=== PATIENT | male | born 1955 | race Caucasian/White ===

== ENCOUNTER 2020-12-03 14:23 | Outpatient (REF) | payer OTHER, SELFPAY ==
[2020-12-03 16:29] LABS: MANUAL DIFF FLAG NO
[2020-12-03 16:31] LABS: Basophils Absolute Auto 0.1 X10*3/uL (0.0-0.2); Basophils Percent Auto 0.5 % (0-2); Eosinophils Absolute Auto 0.3 X10*3/uL (0.0-0.4); Eosinophils Percent Auto 2.7 % (0-4); Hematocrit 42.8 % (42-52); Hemoglobin 14.7 g/dl (14.0-18.0); Imm Gran Abs Auto 0.04 X10*3/uL (0.00-0.03); Imm Gran Pct Auto 0.4 % (0.0-0.4); Lymphocytes Absolute Auto 3.2 X10*3/uL (1.2-4.9); Lymphocytes Percent Auto 32.5 % (20-40); Mean Corpuscular HGB Conc 34.3 g/dl (31.0-36.0); Mean Corpuscular Hemoglobin 32.5 pg (27.0-33.0); Mean Corpuscular Volume 94.7 fL (80-98); Mean Platelet Volume 10.7 fL (9.4-12.4); Monocytes Absolute Auto 0.8 X10*3/uL (0.1-1.2); Monocytes Percent Auto 8.3 % (2-11); Neutrophils Absolute Auto 5.5 X10*3/uL (2.0-8.3); Neutrophils Percent Auto 55.6 % (45-73); Platelet Count 340 X10*3/uL (160-400); Red Blood Count 4.52 X10*6/uL (4.60-5.80); Red Cell Distribution Width 12.5 % (11.0-16.0); White Blood Count 9.9 X10*3/uL (4.8-10.8)
[2020-12-03 16:34] LABS: Glucose Urine UA NEG (NEG); Leukocyte Esterase Urine NEG (NEG); Nitrite Urine NEG (NEG); PH 5.5 (5.0-8.0); Specific Gravity - Urine >= 1.030 (1.005-1.025); Urine Blood NEG (NEG); Urine Ketones NEG (NEG); Urine Protein NEG (NEG-TRACE)
[2020-12-03 16:35] LABS: Appearance Urine CLEAR; Color Urine YELLOW
[2020-12-03 16:55] LABS: Alanine Aminotransferase 24 U/L (0-40); Albumin Level 4.5 g/dL (3.5-5.0); Alkaline Phosphatase 61 U/L (39-117); Anion Gap 14 (12-20); Aspartate Amino Transferase 22 U/L (5-37); Bilirubin Total 0.3 mg/dL (0.0-1.0); Blood Urea Nitrogen 16 mg/dL (9-16); Calcium 8.9 mg/dL (8.4-10.2); Carbon Dioxide 24 mmol/L (22-29); Chloride 103 mmol/L (96-108); Cholesterol 251 mg/dL; Estimated Glomerular Filt Rate > 60; Glucose Fasting 98 mg/dL (60-99); HDL Cholesterol 39 mg/dL; LDL Cholesterol Calculated 164 mg/dl; Potassium 4.6 mmol/l (3.3-5.1); Sodium 136 mmol/L (135-145); Total Protein 7.5 g/dL (6.5-8.0); Triglycerides 243 mg/dL
[2020-12-03 17:11] LABS: TSH reflex Free T4 3.37 mIU/mL (0.32-4.0)
[2020-12-03 18:36] LABS: RBC Urine 0-2 /HPF (0)
[2020-12-03 18:37] LABS: Mucus Urine 1+ /LPF; Squamous Epithelial Cell Urine TRACE /LPF
== END 2020-12-03 14:24 | disposition home or self-care (01) ==
LOC: HO.HMGCLDS 14:23
PROVIDERS: PCP Internal Medicine; Visit Provider Internal Medicine
DX: I10 Essential (primary) hypertension (principal); E78.00 Pure hypercholesterolemia, unspecified; E66.3 Overweight; F17.200 Nicotine dependence, unspecified, uncomplicated
CPT/HCPCS: 36415; 80053; 80061; 81001; 84443; 85025

== ENCOUNTER 2021-04-05 08:03 | Outpatient (REF) | payer OTHER, SELFPAY ==
[2021-04-05 11:19] LABS: MANUAL DIFF FLAG NO
[2021-04-05 11:29] LABS: Basophils Absolute Auto 0.1 X10*3/uL (0.0-0.2); Basophils Percent Auto 0.5 % (0-2); Eosinophils Absolute Auto 0.4 X10*3/uL (0.0-0.4); Eosinophils Percent Auto 3.9 % (0-4); Hematocrit 43.3 % (42-52); Hemoglobin 14.5 g/dl (14.0-18.0); Imm Gran Abs Auto 0.03 X10*3/uL (0.00-0.03); Imm Gran Pct Auto 0.3 % (0.0-0.4); Lymphocytes Absolute Auto 2.8 X10*3/uL (1.2-4.9); Lymphocytes Percent Auto 28.8 % (20-40); Mean Corpuscular HGB Conc 33.5 g/dl (31.0-36.0); Mean Corpuscular Hemoglobin 32.2 pg (27.0-33.0); Mean Platelet Volume 10.9 fL (9.4-12.4); Monocytes Percent Auto 10.5 % (2-11); Neutrophils Absolute Auto 5.4 X10*3/uL (2.0-8.3); Platelet Count 318 X10*3/uL (160-400); Red Blood Count 4.51 X10*6/uL (4.60-5.80); Red Cell Distribution Width 12.9 % (11.0-16.0); White Blood Count 9.7 X10*3/uL (4.8-10.8)
[2021-04-05 11:31] LABS: Glucose Urine UA NEG (NEG); Leukocyte Esterase Urine NEG (NEG); Nitrite Urine NEG (NEG); PH 5.5 (5.0-8.0); Specific Gravity - Urine >= 1.030 (1.005-1.025); Urine Blood NEG (NEG); Urine Ketones NEG (NEG); Urine Protein NEG (NEG-TRACE)
[2021-04-05 11:32] LABS: Color Urine YELLOW
[2021-04-05 11:33] LABS: Appearance Urine TURBID
[2021-04-05 11:55] LABS: Alanine Aminotransferase 22 U/L (0-40); Albumin Level 4.4 g/dL (3.5-5.0); Alkaline Phosphatase 59 U/L (39-117); Anion Gap 14 (12-20); Aspartate Amino Transferase 17 U/L (5-37); Bilirubin Total 0.5 mg/dL (0.0-1.0); Blood Urea Nitrogen 18 mg/dL (9-16); Calcium 8.9 mg/dL (8.4-10.2); Carbon Dioxide 24 mmol/L (22-29); Chloride 107 mmol/L (96-108); Cholesterol 189 mg/dL; Estimated Glomerular Filt Rate > 60; Glucose Fasting 115 mg/dL (60-99); HDL Cholesterol 35 mg/dL; LDL Cholesterol Calculated 113 mg/dl; Potassium 4.6 mmol/L (3.3-5.1); Sodium 140 mmol/L (135-145); Total Protein 6.9 g/dL (6.5-8.0); Triglycerides 205 mg/dL
[2021-04-05 12:02] LABS: TSH reflex Free T4 3.06 uIU/mL (0.32-4.0)
== END 2021-04-05 08:04 | disposition home or self-care (01) ==
LOC: HO.HMGCLDS 08:03
PROVIDERS: PCP Internal Medicine; Visit Provider Internal Medicine
DX: I10 Essential (primary) hypertension (principal); N28.1 Cyst of kidney, acquired; E78.2 Mixed hyperlipidemia; E66.3 Overweight; F17.200 Nicotine dependence, unspecified, uncomplicated
CPT/HCPCS: 36415; 80053; 80061; 81003; 84443; 85025

== ENCOUNTER 2021-08-03 08:50 | Outpatient (REF) | payer OTHER, SELFPAY ==
[2021-08-03 11:09] LABS: MANUAL DIFF FLAG NO
[2021-08-03 11:17] LABS: Basophils Absolute Auto 0.1 X10*3/uL (0.0-0.2); Basophils Percent Auto 0.5 % (0-2); Eosinophils Absolute Auto 0.3 X10*3/uL (0.0-0.4); Eosinophils Percent Auto 3.7 % (0-4); Hemoglobin 14.3 g/dl (14.0-18.0); Imm Gran Abs Auto 0.06 X10*3/uL (0.00-0.03); Imm Gran Pct Auto 0.6 % (0.0-0.4); Lymphocytes Absolute Auto 2.6 X10*3/uL (1.2-4.9); Lymphocytes Percent Auto 27.8 % (20-40); Mean Corpuscular Hemoglobin 32.3 pg (27.0-33.0); Mean Corpuscular Volume 94.8 fL (80-98); Monocytes Percent Auto 10.9 % (2-11); Neutrophils Absolute Auto 5.2 X10*3/uL (2.0-8.3); Neutrophils Percent Auto 56.5 % (45-73); Platelet Count 326 X10*3/uL (160-400); Red Blood Count 4.43 X10*6/uL (4.60-5.80); Red Cell Distribution Width 13.2 % (11.0-16.0); White Blood Count 9.2 X10*3/uL (4.8-10.8)
[2021-08-03 11:26] LABS: Appearance Urine CLEAR; Color Urine YELLOW; Glucose Urine UA NEG (NEG); Leukocyte Esterase Urine NEG (NEG); Nitrite Urine NEG (NEG); Specific Gravity - Urine >= 1.030 (1.005-1.025); UACC Culture Trigger NO; Urine Blood TRACE (NEG); Urine Ketones NEG (NEG); Urine Protein NEG (NEG-TRACE)
[2021-08-03 11:40] LABS: Alanine Aminotransferase 28 U/L (0-40); Albumin Level 4.5 g/dL (3.5-5.0); Alkaline Phosphatase 64 U/L (39-117); Anion Gap 14 (12-20); Aspartate Amino Transferase 19 U/L (5-37); Bilirubin Total 0.5 mg/dL (0.0-1.0); Blood Urea Nitrogen 18 mg/dL (9-16); Calcium 9.3 mg/dL (8.4-10.2); Carbon Dioxide 24 mmol/L (22-29); Chloride 106 mmol/L (96-108); Cholesterol 266 mg/dL; Estimated Glomerular Filt Rate > 60; Glucose Fasting 115 mg/dL (60-99); HDL Cholesterol 43 mg/dL; LDL Cholesterol Calculated 172 mg/dl; Potassium 4.4 mmol/L (3.3-5.1); Sodium 140 mmol/L (135-145); Total Protein 7.4 g/dL (6.5-8.0); Triglycerides 259 mg/dL
[2021-08-03 11:53] LABS: RBC Urine 0-2 /HPF (0); WBC Urine 0-2 /HPF (0-4)
[2021-08-03 11:54] LABS: Calcium Oxalate Crystals Urine 1+ /LPF; Mucus Urine TRACE /LPF
== END 2021-08-03 08:51 | disposition home or self-care (01) ==
LOC: HO.HMGCLDS 08:50
PROVIDERS: PCP Internal Medicine; Visit Provider Internal Medicine
DX: I10 Essential (primary) hypertension (principal); N28.1 Cyst of kidney, acquired; E78.00 Pure hypercholesterolemia, unspecified; F17.200 Nicotine dependence, unspecified, uncomplicated; K58.9 Irritable bowel syndrome, unspecified
CPT/HCPCS: 36415; 80053; 80061; 81001; 85025

== ENCOUNTER 2021-08-31 10:48 | Outpatient (REF) | payer OTHER, SELFPAY ==
--- NOTE | ~2021-08-31 | CT_ITS ---
EXAMINATION: CT ABDOMEN AND PELVIS WITH CONTRAST CLINICAL INFORMATION: Renal cyst. COMPARISON: Prior CT examinations, most recently 07/16/2020; MRI abdomen dated 08/26/2014; renal ultrasound dated 04/21/2011. TECHNIQUE: Multidetector volumetric images were obtained from the superior aspect of the liver through the pubic symphysis following administration 85 mL of Omnipaque 350 intravenous contrast. Sagittal and coronal reformatted images were obtained on the technologist's workstation. Oral contrast: No This CT examination was performed using dose optimization techniques as appropriate, variously including the following: *Automated exposure control *Adjustment of mA and/or kV according to patient size (this includes techniques or standardized protocols for targeted exams where dose is matched to indication/reason for exam; i.e. extremities or head) *Use of iterative reconstruction technique DLP: 625 mGy-cm FINDINGS: LUNG BASES: The visualized lung bases are unremarkable. LIVER, GALLBLADDER, AND BILIARY TREE: The liver is normal in size, shape, and attenuation. Within the hepatic tail (3:31), a 3.1 cm in maximal diameter cyst is redemonstrated. No new focal hepatic lesion or biliary ductal dilatation is present. A small gallstone is seen, without gallbladder wall thickening, or obvious pericholecystic inflammatory changes. PANCREAS: Unremarkable. SPLEEN: Unremarkable. ADRENAL GLANDS: Unremarkable. KIDNEYS AND URETERS: The kidneys are normal in size, shape and attenuation. No urinary calculus or obstructive uropathy is seen bilaterally. At the lower pole of the right kidney (5:66 and 3:38), a 3.8 cm in maximal diameter simple cyst is redemonstrated. At the upper pole of the left kidney (5:71 and 3:25), a 2.5 x 3.1 x 2.7 cm complex cyst is redemonstrated. This shows coarse central septal calcifications, and there is no definite solid component presently appreciated. CT dimensions appear stable from 07/16/2020 (3:24 and 7:62). At the lower pole of the left kidney (3:35), a 1.1 cm simple cyst is redemonstrated. BLADDER: Unremarkable. GASTROINTESTINAL TRACT: A duodenal diverticulum is noted. There is marked diverticulosis, without acute diverticulitis. No bowel obstruction, free intraperitoneal air or abscess is seen. The vermiform appendix appears normal. ABDOMINAL WALL: No significant hernia is appreciated. LYMPH NODES: Normal. VASCULAR: There is mild aortoiliac atherosclerotic calcification. No abdominal aortic aneurysm is seen. PELVIC VISCERA: There is prostatomegaly, with a transverse span of 5.3 cm. The seminal vesicles are unremarkable. OSSEOUS STRUCTURES: There is marked degenerative disc disease at L3-4 through L5-S1. There is multi-level thoracolumbar spondylosis. No acute or aggressive osseous abnormality is seen. CT/CT abdomen pelvis w con IMPRESSION: 1. There is a continued stable appearance of a complex left renal cyst, with coarse central septal calcifications. Dimensions are detailed above. Recommend continued Urology evaluation and management. 2. There is mild cholelithiasis. 3. There is marked diverticulosis, without acute diverticulitis. 4. There is mild prostatomegaly. 5. There is marked degenerative disc disease at L3-4 through L5-S1. No aggressive osseous lesion is seen.
[2021-08-31] MEDS: iohexoL 350 MG/ML 100 ML INFUS..BTL IV (11:14)
== END 2021-08-31 10:49 | disposition home or self-care (01) ==
LOC: HO.CT 10:48
PROVIDERS: Visit Provider Internal Medicine
DX: R10.32 Left lower quadrant pain (principal); R19.8 Other specified symptoms and signs involving the digestive system and abdomen; R31.9 Hematuria, unspecified; N28.1 Cyst of kidney, acquired
CPT/HCPCS: 74177; Q9967

== ENCOUNTER → 2021-09-02 14:51 | Outpatient (BNVA) | payer OTHER, SELFPAY | PROVIDERS: PCP Internal Medicine; Visit Provider Urology | DX: R10.32 Left lower quadrant pain (principal) | CPT/HCPCS: 99212 ==

== ENCOUNTER 2022-08-16 15:50 | Outpatient (REF) | payer MEDICARE, OTHER, SELFPAY ==
--- NOTE | ~2022-08-16 | US_ITS ---
EXAMINATION: US RETROPERITONEAL LIMITED (RENAL ONLY) CLINICAL INFORMATION: Calculus of kidney. COMPARISON: CT abdomen and pelvis 08/31/2021. MRI abdomen 08/26/2014. TECHNIQUE: Real-time imaging of the kidneys. FINDINGS: RIGHT KIDNEY: 11.4 x 5.8 x 5.3 cm (SAG x AP x TRV). The kidney is normal in size, contour, and echogenicity. Renal cortical thickness is normal. No renal calculi or hydronephrosis. There is a lower pole cyst measuring 3.4 x 2.4 x 2.1 cm. This has some peripheral calcification along the wall. This is fairly similar to the prior CT. LEFT KIDNEY: 12.0 x 5.7 x 4.6 cm (SAG x AP x TRV). The kidney is normal in size, contour, and echogenicity. Renal cortical thickness is normal. No hydronephrosis. There is a 2.5 cm cyst at the upper pole with internal calcification. There is an exophytic cyst at the upper pole with internal calcification measuring 2.2 cm. Upper pole 0.5 x 0.4 x 0.7 cm calculus noted. US/US renal BI IMPRESSION: No hydronephrosis. 0.7 cm left upper pole renal calculus. There are bilateral renal cysts that have associated calcification. The upper pole left-sided cystic structure with internal calcification could represent a dilated calyceal diverticulum with internal renal calculus..
== END 2022-08-16 15:51 | disposition home or self-care (01) ==
LOC: HO.US 15:50
PROVIDERS: Visit Provider Urology
DX: N20.0 Calculus of kidney (principal); N28.1 Cyst of kidney, acquired
CPT/HCPCS: 76775

== ENCOUNTER 2022-08-17 11:15 | Outpatient (REF) | payer MEDICARE, SELFPAY ==
[2022-08-17 14:23] LABS: MANUAL DIFF FLAG NO
[2022-08-17 14:30] LABS: Basophils Absolute Auto 0.1 X10*3/uL (0.0-0.2); Basophils Percent Auto 0.7 % (0-2); Eosinophils Absolute Auto 0.3 X10*3/uL (0.0-0.4); Eosinophils Percent Auto 4.1 % (0-4); Hematocrit 40.9 % (42.0-52.0); Imm Gran Abs Auto 0.02 X10*3/uL (0.00-0.03); Imm Gran Pct Auto 0.3 % (0.0-0.4); Lymphocytes Absolute Auto 2.3 X10*3/uL (1.2-4.9); Lymphocytes Percent Auto 32.8 % (20-40); Mean Corpuscular HGB Conc 34.2 g/dl (31.0-36.0); Mean Corpuscular Hemoglobin 32.3 pg (27.0-33.0); Mean Corpuscular Volume 94.2 fL (80.0-98.0); Mean Platelet Volume 10.7 fL (9.4-12.4); Monocytes Absolute Auto 0.8 X10*3/uL (0.1-1.2); Monocytes Percent Auto 10.7 % (2-11); Neutrophils Absolute Auto 3.6 x10*3/uL (2.0-8.3); Neutrophils Percent Auto 51.4 % (45-73); Platelet Count 321 X10*3/uL (160-400); Red Blood Count 4.34 X10*6/uL (4.60-5.80); Red Cell Distribution Width 13.2 % (11.0-16.0)
[2022-08-17 14:38] LABS: Estimated Average Glucose 114 mg/dL; Hemoglobin A1c % 5.6 %
[2022-08-17 14:43] LABS: Alanine Aminotransferase 19 U/L (0-40); Albumin Level 4.1 g/dL (3.5-5.0); Alkaline Phosphatase 55 U/L (39-117); Anion Gap 15 (12-20); Aspartate Amino Transferase 16 U/L (5-37); Bilirubin Total 0.5 mg/dL (0.0-1.0); Blood Urea Nitrogen 13 mg/dL (9-16); Carbon Dioxide 24 mmol/L (22-29); Chloride 106 mmol/L (96-108); Cholesterol 160 mg/dL; Estimated Glomerular Filt Rate > 60; Glucose Fasting 109 mg/dL (60-99); HDL Cholesterol 39 mg/dL; LDL Cholesterol Calculated 106 mg/dl; Potassium 4.8 mmol/L (3.3-5.1); Sodium 140 mmol/L (135-145); Total Protein 6.6 g/dL (6.5-8.0); Triglycerides 76 mg/dL
[2022-08-17 15:08] LABS: Prostate Specific Antigen 2.89 ng/mL (<0.05-4.0); TSH reflex Free T4 2.76 uIU/mL (0.32-4.0); Vitamin D 25-OH Total 30.6 ng/mL (>30)
== END 2022-08-17 11:16 | disposition home or self-care (01) ==
LOC: HO.HMGCLDS 11:15
PROVIDERS: PCP Internal Medicine; Visit Provider Internal Medicine
DX: Z00.00 Encounter for general adult medical examination without abnormal findings (principal); Z12.5 Encounter for screening for malignant neoplasm of prostate; E78.00 Pure hypercholesterolemia, unspecified; E55.9 Vitamin D deficiency, unspecified; N40.0 Benign prostatic hyperplasia without lower urinary tract symptoms; R73.01 Impaired fasting glucose
CPT/HCPCS: 36415; 80053; 80061; 82306; 83036; 84153; 84443; 85025

== ENCOUNTER 2022-08-23 12:11 | Outpatient (REF) | payer MEDICARE, OTHER, SELFPAY ==
[2022-08-23 14:23] LABS: Appearance Urine Clear; Color Urine Yellow; Glucose Urine UA Negative (Negative); Leukocyte Esterase Urine Negative (Negative); Nitrite Urine Negative (Negative); PH 5.5 (5.0-9.0); Specific Gravity - Urine 1.025 (1.005-1.025); Urine Blood Negative (Negative); Urine Ketones Negative (Negative); Urine Protein Negative (Neg-Trace)
== END 2022-08-23 12:12 | disposition home or self-care (01) ==
LOC: HO.HMGCLDS 12:11
PROVIDERS: PCP Internal Medicine; Visit Provider Internal Medicine
DX: Z00.00 Encounter for general adult medical examination without abnormal findings (principal); I10 Essential (primary) hypertension
CPT/HCPCS: 81003

== ENCOUNTER → 2022-08-29 13:29 | Outpatient (BNVA) | payer MEDICARE, SELFPAY | PROVIDERS: PCP Internal Medicine; Visit Provider Urology | DX: N52.9 Male erectile dysfunction, unspecified (principal); N28.1 Cyst of kidney, acquired; M51.36 Other intervertebral disc degeneration, lumbar region | CPT/HCPCS: 99212 ==

== ENCOUNTER → 2022-08-30 09:27 | Outpatient (BNVA) | payer MEDICARE, SELFPAY | PROVIDERS: PCP Internal Medicine; Referring Provider Internal Medicine; Visit Provider Physician Assistant | DX: Z01.818 Encounter for other preprocedural examination (principal); K64.9 Unspecified hemorrhoids; K57.30 Diverticulosis of large intestine without perforation or abscess without bleeding; Z86.010 Personal history of colon polyps | CPT/HCPCS: 99202; 99212 ==

== ENCOUNTER 2022-12-20 11:35 | Outpatient (REF) | payer MEDICARE, SELFPAY ==
--- NOTE | ~2022-12-20 | XR_ITS ---
EXAMINATION: XR ABDOMEN WITH DECUBITUS VIEWS CLINICAL INDICATION: Abdominal pain. COMPARISON: Renal ultrasound dated 08/16/2022; CT abdomen and pelvis dated 08/31/2021. TECHNIQUE: Supine and upright views of the abdomen and pelvis are submitted. FINDINGS: The bowel gas pattern is normal, with no evidence of ileus or obstruction. A previously noted curvilinear calcification related to a complex cyst is redemonstrated at the upper pole the left kidney. There is no acute osseous abnormality. There are multi-level degenerative changes of the thoracolumbar spine. As a mild thoracolumbar dextroscoliosis. XR/XR abdomen w decubitus IMPRESSION: 1. No obstruction, ileus or free intraperitoneal air is seen. 2. A curvilinear calcification related to a previously noted complex cyst at the upper pole of the left kidney is redemonstrated. No urinary calculus is presently appreciated.
[2022-12-20 13:49] LABS: Appearance Urine Clear; Color Urine Yellow; Glucose Urine UA Negative (Negative); Leukocyte Esterase Urine Negative (Negative); Nitrite Urine Negative (Negative); Specific Gravity - Urine 1.025 (1.005-1.025); Urine Blood Negative (Negative); Urine Ketones Negative (Negative); Urine Protein Negative (Neg-Trace)
[2022-12-20 16:34] LABS: MANUAL DIFF FLAG NO
[2022-12-20 16:43] LABS: Basophils Percent Auto 0.4 % (0-2); Eosinophils Absolute Auto 0.2 X10*3/uL (0.0-0.4); Eosinophils Percent Auto 2.1 % (0-4); Hematocrit 41.5 % (42.0-52.0); Hemoglobin 14.3 g/dl (14.0-18.0); Imm Gran Abs Auto 0.03 X10*3/uL (0.00-0.03); Imm Gran Pct Auto 0.4 % (0.0-0.4); Lymphocytes Absolute Auto 2.3 X10*3/uL (1.2-4.9); Lymphocytes Percent Auto 26.6 % (20-40); Mean Corpuscular HGB Conc 34.5 g/dl (31.0-36.0); Mean Corpuscular Volume 92.8 fL (80.0-98.0); Monocytes Absolute Auto 0.9 X10*3/uL (0.1-1.2); Monocytes Percent Auto 10.2 % (2-11); Neutrophils Absolute Auto 5.1 x10*3/uL (2.0-8.3); Neutrophils Percent Auto 60.3 % (45-73); Platelet Count 339 X10*3/uL (160-400); Red Blood Count 4.47 X10*6/uL (4.60-5.80); White Blood Count 8.5 X10*3/uL (4.8-10.8)
[2022-12-20 16:58] LABS: Alanine Aminotransferase 24 U/L (0-40); Albumin Level 4.4 g/dL (3.5-5.0); Alkaline Phosphatase 64 U/L (39-117); Anion Gap 13 (12-20); Aspartate Amino Transferase 17 U/L (5-37); Bilirubin Total 0.4 mg/dL (0.0-1.0); Blood Urea Nitrogen 18 mg/dL (9-16); Calcium 9.8 mg/dL (8.4-10.2); Carbon Dioxide 23 mmol/L (22-29); Chloride 107 mmol/L (96-108); Estimated Glomerular Filt Rate > 60; Glucose Random 101 mg/dL (60-115); Potassium 4.6 mmol/L (3.3-5.1); Sodium 138 mmol/L (135-145); Total Protein 7.1 g/dL (6.5-8.0)
[2022-12-20 17:15] LABS: TSH reflex Free T4 5.45 uIU/mL (0.32-4.0); Vitamin D 25-OH Total 23.9 ng/mL (>30)
[2022-12-20 17:31] LABS: Erythrocyte Sedimentation Rate 13 MM/HR (0-15)
[2022-12-20 18:16] LABS: Free T4 (Free Thyroxine) 0.99 ng/dL (0.71-1.85)
[2022-12-22 14:13] LABS: Anti Nuclear Antibody Screen NEGATIVE (NEGATIVE)
== END 2022-12-20 11:36 | disposition home or self-care (01) ==
LOC: HO.HMGCLDS 11:35
PROVIDERS: PCP Internal Medicine; Visit Provider Internal Medicine
DX: R10.9 Unspecified abdominal pain (principal); R53.83 Other fatigue; E55.9 Vitamin D deficiency, unspecified; R30.0 Dysuria; I10 Essential (primary) hypertension
CPT/HCPCS: 36415; 74021; 80053; 81003; 82306; 84439; 84443; 85025; 85652; 86038; 86039; 86140

== ENCOUNTER → 2023-03-01 10:01 | Outpatient (BNVA) | payer MEDICARE, SELFPAY | PROVIDERS: PCP Internal Medicine; Visit Provider Urology | DX: N52.9 Male erectile dysfunction, unspecified (principal) | CPT/HCPCS: 99212 ==

== ENCOUNTER 2023-04-26 10:13 | Day surgery (SDC) | payer MEDICARE, SELFPAY ==
[2023-04-24 08:43] VITALS: BMI 30.4
--- NOTE | 2023-04-25 08:58 | HO.ANESPROP2 ---
Documented by User: Elly Masters NP 04/25/23 09:00 HPI - Anesthesia Eval Consult details Narrative: 67yo M for Colonoscopy [facility] Active Problems Active Problems: All Active Problems (Updated 12/20/22 @ 11:05 by Tye Mckoy MD) Fatigue (Acute) Abdominal pain (Acute) Diverticulosis of colon (Acute) Hemorrhoids (Acute) History of adenomatous polyp of colon (Acute) Erectile dysfunction (Acute) Impaired fasting glucose (Acute) Colon cancer screening (Acute) Left inguinal pain (Acute) Hematuria (Acute) LLQ abdominal pain (Acute) Complex renal cyst (Acute) Annual physical exam (Acute) Irritable bowel syndrome (IBS) (Acute) Overweight (BMI 25.0-29.9) (Acute) Smoker (Acute) Renal cyst (Acute) Benign prostatic hyperplasia without lower urinary tract symptoms (Acute) Lumbar degenerative disc disease (Acute) Benign essential hypertension (Acute) Mixed hyperlipidemia (Acute) Past Medical History Medical History Benign essential hypertension Benign prostatic hyperplasia without lower urinary tract symptoms Hematuria Irritable bowel syndrome (IBS) LLQ abdominal pain Lumbar degenerative disc disease Mixed hyperlipidemia Overweight (BMI 25.0-29.9) Renal cyst Smoker Family History Family History Father Myocardial infarction CVD (cardiovascular disease) Mother Diabetes Head injury Sister Stroke Maternal Grandmother Diabetes Paternal Grandfather Myocardial infarction Paternal Uncle Myocardial infarction Brother No problems noted. Sister No problems noted. Surgical History Surgical History History of colonoscopy with polypectomy History of hemorrhoidectomy History of hernia repair History of lumbar surgery Social History Social History Housing: Apartment Alcohol intake: current Alcohol intake frequency: holidays/special occasions only Patient Tobacco Use Status: Current everyday Tobacco user Cigarettes Per Day: 10 Second Hand Smoke Exposure: Yes Advance Directives: No Advance Directives Information Provided: Yes service: No Current occupational status: retired Cognitive needs: No Hearing needs: No Vision needs: Yes (reading glasses) Meds Allergies Allergy/AdvReac Type Severity Reaction Status Date / Time amoxicillin Allergy Intermediate stomach Verified 04/26/23 10:51 upset, nausea, hives Home Medications Medication Instructions Recorded Confirmed Last Taken Type ascorbate calcium (vitamin C) 500 500 mg PO DAILY 08/29/22 04/26/23 Unknown History mg tablet vitamin B complex (B 1 tab PO DAILY 08/29/22 04/26/23 Unknown History Complex-Vitamin B12 tablet) Exam Exam Date and Time: April 25, 2023 0858 Height,Weight and Vital Signs: Height 5 ft 8 in Weight 90.718 kg Pertinent Lab Results Pertinent Lab Results: Laboratory Tests 12/20/22 12/20/22 11:44 11:44 WBC 8.5 Hgb 14.3 Hct 41.5 L Plt Count 339 Sodium 138 Potassium 4.6 Chloride 107 Carbon Dioxide 23 BUN 18 H Creatinine 0.84 Assessment and Plan Assessment Anesthesia Assessment: Chart Reviewed Documented by User: Ninoska Gomez MD 04/26/23 10:56 PMF Past Medical History Medical History Benign essential hypertension Benign prostatic hyperplasia without lower urinary tract symptoms Hematuria Irritable bowel syndrome (IBS) LLQ abdominal pain Lumbar degenerative disc disease Mixed hyperlipidemia Overweight (BMI 25.0-29.9) Renal cyst Smoker Family History Family History Father Myocardial infarction CVD (cardiovascular disease) Mother Diabetes Head injury Sister Stroke Maternal Grandmother Diabetes Paternal Grandfather Myocardial infarction Paternal Uncle Myocardial infarction Brother No problems noted. Sister No problems noted. Surgical History Surgical History History of colonoscopy with polypectomy History of hemorrhoidectomy History of hernia repair History of lumbar surgery History of Problems with Anesthesia: No Social History Social History Housing: Apartment Alcohol intake: current Alcohol intake frequency: holidays/special occasions only Patient Tobacco Use Status: Current everyday Tobacco user Cigarettes Per Day: 10 Second Hand Smoke Exposure: Yes Advance Directives: No Advance Directives Information Provided: Yes service: No Current occupational status: retired Cognitive needs: No Hearing needs: No Vision needs: Yes (reading glasses) Meds Allergies Allergy/AdvReac Type Severity Reaction Status Date / Time amoxicillin Allergy Intermediate stomach Verified 04/26/23 10:51 upset, nausea, hives Home Medications Medication Instructions Recorded Confirmed Last Taken Type ascorbate calcium (vitamin C) 500 500 mg PO DAILY 08/29/22 04/26/23 Unknown History mg tablet vitamin B complex (B 1 tab PO DAILY 08/29/22 04/26/23 Unknown History Complex-Vitamin B12 tablet) Exam Airway Mallampati Class: II TM Dist: >3cm Neck ROM: Full Loose/Missing/Broken Teeth: No Heart: RRR Lungs: CTA Assessment and Plan Assessment Anesthesia Assessment: Anesthesia Plan Discussed Final Anesthetic Review History of Problems with Anesthesia: No NPO: Yes ASA Class: II Final Preanesthetic Review: Meds/Allgs Chart Reviewed, Consent Obtained/Reviewed and Anes Risks/Benef Reviewed Patient Risk: Low Procedure Risk: Low Anesthetic Plan Anesthetic Plan: MAC: Disposition: Standard PACU
[2023-04-26 10:52] VITALS: BP 147/89; PULSE 69; RESP 16; TEMP 36.6; O2SAT 98
[2023-04-26 10:54] VITALS: BMI 27.8
[2023-04-26] MEDS: Lactated Ringers 1,000 ML 100 ML IVCONT (11:16)
--- NOTE | 2023-04-26 12:03 | W.PM.OPN ---
Operative Note Operative Note Date of Service: 04/26/23 Narrative: Operative Information Procedure Description: Colonoscopy Indication: screening Anesthesia: MAC COLONOSCOPY Instrument: Olympus variable stiffness pediatric scope 190L Colonoscopy Monitoring: Vital signs and clinical assessment, continuous EKG monitoring, Pulse oximetry, Carbon Dioxide monitoring and blood pressure monitoring were done throughout the procedure. Colon withdrawal time was 10 minutes. Procedure: The patient was placed in the left lateral decubitis position and pre-procedure medications were administered. After a digital rectal examination of the ano-rectum, the video colonoscope was inserted into the rectum and advanced through the colon to the cecum/TI. The colonoscope was slowly withdrawn in a retrograde panoramic fashion and the colon mucosa was carefully examined including a retroflexed view of the rectum. Findings and interventions are described below. Procedure Difficulty: easy Findings: Terminal Ileum-normal Cecum: 3-5 mm sessile polyp removed with cold forceps Ascending Colon: mild diverticulosis, 6-8 mm sessile polyp removed with cold snare Transverse Colon -normal Descending Colon:normal Sigmoid Colon: scattered diverticulosis Rectum: Retroflexion with medium sized internal hemorrhoids, grade I Anorectum - normal Colon preparation: [place] Bowel Preparation Scale Right colon; 2 Transverse colon: 3 Left colon; 3 (0 = Unprepared colon segment with mucosa not seen due to solid stool that cannot be cleared. 1 = Portion of mucosa of the colon segment seen, but other areas of the colon segment not well seen due to staining, residual stool and/or opaque liquid. 2 = Minor amount of residual staining, small fragments of stool and/or opaque liquid, but mucosa of colon segment seen well. 3 = Entire mucosa of colon segment seen well with no residual staining, small fragments of stool or opaque liquid) Impression and Post Procedure Diagnosis: polyps internal hemorrhoids diverticular disease Plan: High fiber diet leaflet Avoid straining at stool, epsom salts and sitz bath, anusol supps or cream Repeat Colonoscopy in 5-6 years or earlier if clinically indicated Above findings were reviewed with the patient and relevant handouts were provided if indicated.
[2023-04-26 12:05] VITALS: BP 82/58; PULSE 73; RESP 16; TEMP 37.3; O2SAT 96
[2023-04-26 12:27] VITALS: BP 117/69; PULSE 71; RESP 18; TEMP 36.1; O2SAT 95
== END 2023-04-26 12:50 | disposition home or self-care (01) ==
PROVIDERS: PCP Internal Medicine; Visit Provider Internal Medicine Gastroenterology
PROC: 0DJD8ZZ Inspection of Lower Intestinal Tract, Via Natural or Artificial Opening Endoscopic (ICD-10-PCS; CPT 45378; principal; 2023-04-26 13:20)
DX: Z12.11 Encounter for screening for malignant neoplasm of colon (principal); Z86.010 Personal history of colon polyps; D12.2 Benign neoplasm of ascending colon; K63.5 Polyp of colon; K57.30 Diverticulosis of large intestine without perforation or abscess without bleeding; K64.0 First degree hemorrhoids; K58.9 Irritable bowel syndrome, unspecified; I10 Essential (primary) hypertension; E78.2 Mixed hyperlipidemia; N40.0 Benign prostatic hyperplasia without lower urinary tract symptoms; E78.5 Hyperlipidemia, unspecified; N28.1 Cyst of kidney, acquired; E66.3 Overweight; Z68.28 Body mass index [BMI] 28.0-28.9, adult; Z79.899 Other long term (current) drug therapy; Z88.1 Allergy status to other antibiotic agents; F17.210 Nicotine dependence, cigarettes, uncomplicated
CPT/HCPCS: 45385; 45380; 88305; J2250

== ENCOUNTER 2023-06-06 11:22 | Outpatient (AMB) | payer MEDICARE, SELFPAY ==
--- NOTE | 2023-06-06 11:39 | MHC.OFFVIS ---
Intake Vital Signs 06/06/23 11:40 Height 5 ft 8 in Weight 185 lb BMI 28.1 BP 126/74 Blood Pressure Location Lt brachial Position Sitting Pulse 74 Intake Visit Reasons: S/p colon- Vaughan Intake Note: Patient follow up for Colonoscopy results. Patient denies any GI issues. 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 Bowels are normal good rare constipation Appetite is good no acid reflux No nausea, vomiting, hematemesis, hematochezia fever or chills PFSH Medical History Benign essential hypertension Benign prostatic hyperplasia without lower urinary tract symptoms Diverticulosis of colon Hematuria Irritable bowel syndrome (IBS) LLQ abdominal pain Lumbar degenerative disc disease Mixed hyperlipidemia Obesity (BMI 30-39.9) Overweight (BMI 25.0-29.9) Renal cyst Smoker Surgical History History of colonoscopy with polypectomy History of hemorrhoidectomy History of hernia repair History of lumbar surgery Family History Father Myocardial infarction CVD (cardiovascular disease) Mother Diabetes Head injury Sister Stroke Maternal Grandmother Diabetes Paternal Grandfather Myocardial infarction Paternal Uncle Myocardial infarction Brother No problems noted. Sister No problems noted. Social History Housing: Apartment Alcohol intake: current Alcohol intake frequency: holidays/special occasions only Patient Tobacco Use Status: Current everyday Tobacco user Tobacco use type: Cigarette Cigarette Packs Per Day: 0.5 Cigarettes Per Day: 10.0 Years Smoked: 40 Second Hand Smoke Exposure: Yes service: No Current occupational status: retired Cognitive needs: No Hearing needs: No Vision needs: Yes (reading glasses) Review of Systems Const All systems reviewed & are unremarkable except as noted in HPI and below Physical Exam Vital Signs: Last Vital Signs Pulse 74 06/06/23 11:40 BP 126/74 06/06/23 11:40 BMI result Body Mass Index 28.1 Const General: cooperative, healthy appearing and comfortable Orientation/consciousness: patient oriented x3 Limitations: no limitations Neuro General: patient oriented x3 Psych Appearance: grossly normal Mental Status: mental status grossly normal Speech and movement: Normal speech and movement present Affect: normal affect Attitude: cooperative Thought process: Normal thought process present Thought content: Normal thought content present Insight: Good insight present (Psych) Judgement: Good judgement present (Psych) Results Reviewed Results Reviewed: Impression and Post Procedure Diagnosis: polyps internal hemorrhoids diverticular disease Plan: High fiber diet leaflet Avoid straining at stool, epsom salts and sitz bath, anusol supps or cream Repeat Colonoscopy in 5-6 years or earlier if clinically indicated Name:?Adele,Robert Age/Sex: 67/M Attending: Manuel Vaughan MD : 1955 Submitted by: Manuel Vaughan MD Copies to: Tye Mckoy MD MR #: [id number] ? Status: [facility] Collected: 04/26/23 Location: [facility] Received: 04/26/23 Diagnosis A.? Cecum, polypectomy:? Colonic mucosa with mild surface hyperplastic changes. B.? Colon, ascending, polypectomy:? Sessile serrated lesion/polyp; negative for cytologic dysplasia. Clinical History Pre-Op Dx:? Colon cancer screening, Hx/o polyps Post-Op Dx: Diverticulosis, colon polyps, hemorrhoids Assessment & Plan Assessment & Plan (1) Sessile colonic polyp: Code(s): K63.5 - Polyp of colon (2) Diverticulosis of colon: Comment: Discussed diverticulosis/diverticulitis ER protocol Maintain high-fiber diet Code(s): K57.30 - Diverticulosis of large intestine without perforation or abscess without bleeding (3) Hemorrhoids: Comment: Avoid straining, maintain high-fiber diet Code(s): K64.9 - Unspecified hemorrhoids Patient Instructions: Repeat asymptomatic colonoscopy 5 years adenomas or serrated polyps are?benign (noncancerous) growths, but may be precursor lesions to colorectal cancer so it is good that they are removed. Discussed diverticulosis/diverticulitis ER protocol Maintain high-fiber diet Coding Level of Care Code Est Pt Level 3 (03439) Diagnoses Sessile colonic polyp K63.5 Diverticulosis of colon K57.30 Hemorrhoids K64.9 Time Spent (min) 25
[2023-06-06 11:40] VITALS: BP 126/74; PULSE 74; BMI 28.1
== END 2023-06-06 12:29 | disposition home or self-care (01) ==
PROVIDERS: Visit Provider Physician Assistant
DX: K63.5 Polyp of colon (principal); K57.30 Diverticulosis of large intestine without perforation or abscess without bleeding; K64.9 Unspecified hemorrhoids
CPT/HCPCS: 99213

== ENCOUNTER → 2023-06-06 11:22 | Outpatient (BNVA) | payer MEDICARE, OTHER, SELFPAY | PROVIDERS: Visit Provider Physician Assistant | DX: K57.30 Diverticulosis of large intestine without perforation or abscess without bleeding (principal); K63.5 Polyp of colon; K64.8 Other hemorrhoids; K58.9 Irritable bowel syndrome, unspecified; R10.32 Left lower quadrant pain | CPT/HCPCS: 99212 ==

== ENCOUNTER 2023-07-04 08:04 | Outpatient (REF) | payer MEDICARE, OTHER, SELFPAY | END 2023-07-04 08:05 | disposition home or self-care (01) | LOC: HO.MRI 08:04 | PROVIDERS: PCP Internal Medicine; Visit Provider Internal Medicine | DX: Z13.89 Encounter for screening for other disorder (principal) ==

== ENCOUNTER 2023-08-31 09:58 | Outpatient (AMB) | payer MEDICARE, OTHER, SELFPAY ==
--- NOTE | 2023-08-31 09:59 | MHC.OFFVIS ---
Intake Intake Visit Reasons: 6M Follow Up (BPH/Erectile Dys) Allergies amoxicillin Allergy (Intermediate, Verified 06/06/23 11:39) stomach upset, nausea, hives HPI HPI Comments History of Present Illness Details Dale is a very pleasant male. He is a patient of Dr. Mckoy. He is seen for the following urologic conditions - complex renal cyst - inguinal pain - erectile dysfunction Telemedicine Evaluation 15 min Consultation DoxmBlox [place] Video attempted Low-dose daily tadalafil Good effect - bladder and erections Erectile dysfunction Progressive Trouble maintaining erection Positive effect with daily tadalafil Complex renal cyst Followed over number of years Imaging - 09/15 CT scan 3.6 cm renal cyst right side, 2.5 cm complex cyst left side with calcification basically unchanged compared to prior imaging MRI and ultrasound - 08/17 renal ultrasound right-sided 3.6 cm cyst, left side complex cyst with calcification Lower urinary tract symptoms Mild in occasional nocturia Does not reach level of bother PSA - 04/14 3.0, 08/17 2.9 Left inguinal disruption Prior radiating pain left inguinal area up flank On exam has marked tenderness at lateral aspect of left inguinal canal and medial aspect of right inguinal canal Previously has responded to anti-inflammatories Pain predominantly from left side Known degenerative disc disease Prior Celebrex [facility] Medical History (Updated 08/31/23 @ 10:32 by Rome Leong MD) Obesity (BMI 30-39.9) Diverticulosis of colon Hematuria LLQ abdominal pain Irritable bowel syndrome (IBS) Overweight (BMI 25.0-29.9) Smoker Renal cyst Benign prostatic hyperplasia without lower urinary tract symptoms Lumbar degenerative disc disease Benign essential hypertension Mixed hyperlipidemia Surgical History History of colonoscopy with polypectomy History of hemorrhoidectomy History of lumbar surgery History of hernia repair Family History Father Myocardial infarction CVD (cardiovascular disease) Mother Diabetes Head injury Sister Stroke Maternal Grandmother Diabetes Paternal Grandfather Myocardial infarction Paternal Uncle Myocardial infarction Brother No problems noted. Sister No problems noted. Social History Housing: Apartment Alcohol intake: current Alcohol intake frequency: holidays/special occasions only Patient Tobacco Use Status: Current everyday Tobacco user Tobacco use type: Cigarette Cigarette Packs Per Day: 0.5 Cigarettes Per Day: 10.0 Years Smoked: 40 Second Hand Smoke Exposure: Yes service: No Current occupational status: retired Cognitive needs: No Hearing needs: No Vision needs: Yes (reading glasses) Assessment & Plan Assessment & Plan (1) Erectile dysfunction: Code(s): N52.9 - Male erectile dysfunction, unspecified Qualifiers: Erectile dysfunction type: vasculogenic Vasculogenic erectile dysfunction type: due to arterial insufficiency Qualified Code(s): N52.01 - Erectile dysfunction due to arterial insufficiency (2) Benign prostatic hyperplasia without lower urinary tract symptoms: Code(s): N40.0 - Benign prostatic hyperplasia without lower urinary tract symptoms Plan Six month follow-up PSA Orders: Orders Prostate Specific Antigen 6 Months N40.0 - Benign prostatic hyperplasia without lower urinary tract symptoms Medications: Refilled tadalafil 5 mg PO DAILY 90 days 90 tabs 1RF sexual activity N52.01 - Erectile dysfunction due to arterial insufficiency, N52.9 - Male erectile dysfunction, unspecified Patient Instructions: Imaging studies, laboratory and physical exam results were discussed and reviewed in detail. No major barriers to patient understanding were identified. An opportunity to ask questions regarding the treatment plan was provided. All questions were answered. The patient expressed understanding and agreement with the above treatment plan. The patient is aware they should contact our office by phone for worsening of their current condition or the appearance of new urologic symptoms. Compliance is encouraged with any medications and followup testing that is ordered. It is a privilege to participate in the urologic care of your patient. If you have any questions or concerns regarding treatment for the above conditions, or other urologic issues, please do not hesitate to contact me. The office telephone contact is [phone]. This note is constructed using voice recognition software. While every effort has been made to ensure accuracy treasury consultant errors may have been included. Yours sincerely, Dr Rome Leong MD, [facility] - Urology Providers of Expert, Compassionate Care for the Genitourinary System Telehealth Telehealth Location of provider rendering services: practice address Location of patient: address on file Patient Identification confirmed using: Name, : Yes Telehealth method: video Patient verbally consented to treatment: Yes Patient verbally consented to billing insurance company: Yes Patient informed of any privacy concerns related to visit: Yes Coding Level of Care Code Tele Est Pt Level 3 (41829) Diagnoses Erectile dysfunction due to arterial insufficiency N52.01 Erectile dysfunction type: vasculogenic Vasculogenic erectile dysfunction type: due to arterial insufficiency Benign prostatic hyperplasia without lower urinary tract symptoms N40.0
== END 2023-08-31 10:33 | disposition home or self-care (01) ==
LOC: HO.HUSH 09:58
PROVIDERS: PCP Internal Medicine; Visit Provider Urology
DX: N52.01 Erectile dysfunction due to arterial insufficiency (principal); N40.0 Benign prostatic hyperplasia without lower urinary tract symptoms
CPT/HCPCS: 99213

== ENCOUNTER → 2023-08-31 09:58 | Outpatient (BNVA) | payer MEDICARE, OTHER, SELFPAY | PROVIDERS: PCP Internal Medicine; Visit Provider Urology ==

== ENCOUNTER 2024-02-21 14:03 | Outpatient (REF) | payer MEDICARE, OTHER, SELFPAY ==
[2024-02-21 16:10] LABS: Prostate Specific Antigen 2.95 ng/mL (<0.05-4.0)
== END 2024-02-21 14:04 | disposition home or self-care (01) ==
LOC: HO.LAB 14:03
PROVIDERS: PCP Internal Medicine; Visit Provider Urology
DX: N40.0 Benign prostatic hyperplasia without lower urinary tract symptoms (principal); Z12.5 Encounter for screening for malignant neoplasm of prostate
CPT/HCPCS: 36415; 84153

== ENCOUNTER 2024-02-28 10:10 | Outpatient (AMB) | payer MEDICARE, OTHER, SELFPAY ==
--- NOTE | 2024-02-28 10:25 | A.OFFVIS_ITS ---
Intake Intake Visit Reasons: 6m/PSA(set)confirmed Intake Note: Patient presents today for a follow up on: PSA/PVR Meds- Tadalafil Allergies to Antibiotic- Amoxicillin Blood Thinner- None Post Void Residual: 67ml Carpenter Prototype Required: No Accompanied by: Self / Same As Patient Allergies amoxicillin Allergy (Intermediate, Verified 02/28/24 10:45) stomach upset, nausea, hives HPI HPI Comments History of Present Illness Details Dale is a very pleasant male. He is a patient of Dr. Mckoy. He is seen for the following urologic conditions - complex renal cyst - inguinal pain - erectile dysfunction Low-dose daily tadalafil Good effect - bladder and erections Main issue is left flank pain which is secondary to prior surgery Erectile dysfunction Progressive Trouble maintaining erection Positive effect with daily tadalafil Complex renal cyst Followed over number of years Imaging - 09/15 CT scan 3.6 cm renal cyst right side, 2.5 cm complex cyst left side with calcification basically unchanged compared to prior imaging MRI and ultrasound - 08/17 renal ultrasound right-sided 3.6 cm cyst, left side complex cyst with calcification Lower urinary tract symptoms Mild in occasional nocturia Does not reach level of bother PSA - 04/14 3.0, 08/17 2.9 Left inguinal disruption Prior radiating pain left inguinal area up flank On exam has marked tenderness at lateral aspect of left inguinal canal and medial aspect of right inguinal canal Previously has responded to anti-inflammatories Pain predominantly from left side Known degenerative disc disease Prior Celebrex [facility] Medical History Obesity (BMI 30-39.9) Diverticulosis of colon Hematuria LLQ abdominal pain Irritable bowel syndrome (IBS) Overweight (BMI 25.0-29.9) Smoker Renal cyst Benign prostatic hyperplasia without lower urinary tract symptoms Lumbar degenerative disc disease Benign essential hypertension Mixed hyperlipidemia Surgical History History of colonoscopy with polypectomy History of hemorrhoidectomy History of lumbar surgery History of hernia repair Family History Father Myocardial infarction CVD (cardiovascular disease) Mother Diabetes Head injury Sister Stroke Maternal Grandmother Diabetes Paternal Grandfather Myocardial infarction Paternal Uncle Myocardial infarction Brother No problems noted. Sister No problems noted. Social History Housing: Apartment Alcohol intake: current Alcohol intake frequency: holidays/special occasions only Patient Tobacco Use Status: Current everyday Tobacco user Tobacco use type: Cigarette Cigarette Packs Per Day: 0.5 Cigarettes Per Day: 10.0 Years Smoked: 40 Second Hand Smoke Exposure: Yes service: No Current occupational status: retired Cognitive needs: No Hearing needs: No Vision needs: Yes (reading glasses) Review of Systems Const Denies chills and Denies fever(s) Card Reports no additional complaints and Denies syncope Resp Denies cough GI Denies abdominal pain and Denies heartburn Reports as per HPI and Denies change in libido Neuro Denies syncope Psych Denies change in libido Endo Denies change in libido Physical Exam Const General: cooperative, healthy appearing, comfortable and no acute distress Orientation/consciousness: patient oriented x3 HEENT Face and sinus: Yes normal facial exam Mouth: moist mucous membranes Neck Neck: Yes normal visual inspection, Yes full ROM and Yes trachea midline Chest Chest palpation & inspection: normal inspection of the chest Resp Effort & Inspection: normal respiratory effort, able to speak in complete sentences and no respiratory distress GI Inspection: Yes normal to inspection Back/Spine/Pelvis Cervical Spine: normal cervical lordosis Thoracic/Lumbar Spine: thoracic and lumbar spine normal to inspection Skin General skin exam: no rashes or lesions noted Neuro General: patient oriented x3, gait normal, tone normal and moves all extremities Extrem General: Yes normal to inspection and Yes capillary refill normal Office Procedures Post Void Residual Post Residual Void Post Void Residual (PVR): 67 [id number] Void Residual by ultrasound Assessment & Plan Assessment & Plan (1) Benign prostatic hyperplasia without lower urinary tract symptoms: Code(s): N40.0 - Benign prostatic hyperplasia without lower urinary tract symptoms (2) Erectile dysfunction: Code(s): N52.9 - Male erectile dysfunction, unspecified Qualifiers: Erectile dysfunction type: vasculogenic Vasculogenic erectile dysfunction type: due to arterial insufficiency Qualified Code(s): N52.01 - Erectile dysfunction due to arterial insufficiency Plan Six-month follow-up Orders: Orders AMB Post Void Residual by ultrasound Today R33.9 - Retention of urine, unspecified Medications: Refilled tadalafil 5 mg PO DAILY 90 days 90 tabs 1RF sexual activity N52.01 - Erectile dysfunction due to arterial insufficiency, N52.9 - Male erectile dysfunction, unspecified Patient Instructions: Imaging studies, laboratory and physical exam results were discussed and reviewed in detail. No major barriers to patient understanding were identified. An opportunity to ask questions regarding the treatment plan was provided. All questions were answered. The patient expressed understanding and agreement with the above treatment plan. The patient is aware they should contact our office by phone for worsening of their current condition or the appearance of new urologic symptoms. Compliance is encouraged with any medications and followup testing that is ordered. It is a privilege to participate in the urologic care of your patient. If you have any questions or concerns regarding treatment for the above conditions, or other urologic issues, please do not hesitate to contact me. The office telephone contact is [phone]. This note is constructed using voice recognition software. While every effort has been made to ensure accuracy tram driver errors may have been included. Yours sincerely, Dr Rome Leong MD, [facility] - Urology Providers of Expert, Compassionate Care for the Genitourinary System Coding Level of Care Code Est Pt Level 3 (26182) Diagnoses Benign prostatic hyperplasia without lower urinary tract symptoms N40.0 Erectile dysfunction due to arterial insufficiency N52.01 Erectile dysfunction type: vasculogenic Vasculogenic erectile dysfunction type: due to arterial insufficiency CPT Codes Post Residual Void - PVR CPT Code: 53383-Ptqz Void Residual by ultrasound ([id number])
== END 2024-02-28 11:07 | disposition home or self-care (01) ==
PROVIDERS: PCP Internal Medicine; Visit Provider Urology
DX: N40.0 Benign prostatic hyperplasia without lower urinary tract symptoms (principal); N52.01 Erectile dysfunction due to arterial insufficiency
CPT/HCPCS: 99213

== ENCOUNTER → 2024-02-28 10:10 | Outpatient (BNVA) | payer MEDICARE, OTHER, SELFPAY | PROVIDERS: PCP Internal Medicine; Visit Provider Urology | DX: N40.0 Benign prostatic hyperplasia without lower urinary tract symptoms (principal); N52.01 Erectile dysfunction due to arterial insufficiency | CPT/HCPCS: 51798; 99212 ==

== ENCOUNTER 2024-03-21 14:46 | Outpatient (REF) | payer MEDICARE, OTHER, SELFPAY ==
[2024-03-21 16:17] LABS: MANUAL DIFF FLAG NO
[2024-03-21 16:21] LABS: Basophils Percent Auto 0.4 % (0-2); Eosinophils Absolute Auto 0.1 X10*3/uL (0.0-0.4); Eosinophils Percent Auto 1.1 % (0-4); Hematocrit 41.1 % (42.0-52.0); Hemoglobin 14.1 g/dl (14.0-18.0); Imm Gran Abs Auto 0.04 X10*3/uL (0.00-0.03); Imm Gran Pct Auto 0.4 % (0.0-0.4); Lymphocytes Absolute Auto 2.6 X10*3/uL (1.2-4.9); Lymphocytes Percent Auto 26.4 % (20-40); Mean Corpuscular HGB Conc 34.3 g/dl (31.0-36.0); Mean Corpuscular Hemoglobin 31.9 pg (27.0-33.0); Mean Platelet Volume 10.3 fL (9.4-12.4); Monocytes Absolute Auto 0.9 X10*3/uL (0.1-1.2); Neutrophils Absolute Auto 6.1 x10*3/uL (2.0-8.3); Neutrophils Percent Auto 62.7 % (45-73); Platelet Count 329 X10*3/uL (160-400); Red Blood Count 4.42 X10*6/uL (4.60-5.80); Red Cell Distribution Width 12.8 % (11.0-16.0); White Blood Count 9.7 X10*3/uL (4.8-10.8)
[2024-03-21 16:24] LABS: Appearance Urine Clear; Color Urine Dark Yellow; Glucose Urine UA Negative (Negative); Leukocyte Esterase Urine Trace (Negative); Nitrite Urine Negative (Negative); Specific Gravity - Urine >= 1.030 (1.005-1.025); UMIC TRIGGER UACC YES; Urine Blood Negative (Negative); Urine Ketones Negative (Negative); Urine Protein Trace mg/dL (Neg-Trace)
[2024-03-21 16:29] LABS: Bacteria Urine None Seen (None Seen); Hyaline Casts Urine 0-2 /LPF (0-2); RBC Urine 0-2 /HPF (0-2); Squamous Epithelial Cell Urine 0-2 /HPF (0-2); WBC Urine 0-5 /HPF (0-5)
[2024-03-21 16:56] LABS: Alanine Aminotransferase 14 U/L (0-40); Albumin Level 4.3 g/dL (3.5-5.0); Alkaline Phosphatase 58 U/L (39-117); Anion Gap 13 (12-20); Aspartate Amino Transferase 14 U/L (5-37); Bilirubin Total 0.4 mg/dL (0.0-1.0); Blood Urea Nitrogen 19 mg/dL (9-16); Carbon Dioxide 21 mmol/L (22-29); Chloride 110 mmol/L (96-108); Cholesterol 199 mg/dL (<200); Estimated Glomerular Filt Rate > 60; Glucose Fasting 108 mg/dL (60-99); HDL Cholesterol 45 mg/dL (>40); LDL Cholesterol Calculated 136 mg/dL (<100); Sodium 140 mmol/L (135-145); Total Protein 7.3 g/dL (6.5-8.0); Triglycerides 92 mg/dL (<150)
[2024-03-21 17:10] LABS: Vitamin D 25-OH Total 26.3 ng/mL (>30)
[2024-03-21 17:50] LABS: Free T4 (Free Thyroxine) 0.79 ng/dL (0.71-1.85)
== END 2024-03-21 14:47 | disposition home or self-care (01) ==
LOC: HO.HMGCLDS 14:46
PROVIDERS: PCP Internal Medicine; Visit Provider Internal Medicine
DX: Z00.00 Encounter for general adult medical examination without abnormal findings (principal); E55.9 Vitamin D deficiency, unspecified; E78.00 Pure hypercholesterolemia, unspecified; I10 Essential (primary) hypertension; R30.0 Dysuria
CPT/HCPCS: 36415; 80053; 80061; 81001; 82306; 84439; 84443; 85025

== ENCOUNTER 2024-03-26 16:23 | Outpatient (AMB) | payer MEDICARE, OTHER, SELFPAY ==
--- NOTE | 2024-03-26 16:26 | MHC.PC.OV ---
Vital Signs 03/26/24 16:27 Height 5 ft 8 in Weight 195 lb BMI 29.6 BP 138/62 Blood Pressure Location Lt brachial Position Sitting Pulse 84 Pulse Source Pulse Oximeter Pulse Oximetry (%) 96 Oxygen Delivery Method Room Air Intake Visit Reasons: PE Intake Note: Patient is here today for a physical. 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 Allergies amoxicillin Allergy (Intermediate, Verified 03/26/24 17:14) stomach upset, nausea, hives Medication List - Last Reconciled 03/26/24 by Tye Mckoy MD ascorbate calcium (vitamin C) 500 mg PO DAILY celecoxib 100 mg PO BID 30 days lisinopril 5 mg PO DAILY pravastatin 40 mg PO DAILY 90 days pregabalin 50 mg PO TID 30 days tadalafil 5 mg PO DAILY 90 days vitamin B complex (B Complex-Vitamin B12 tablet) 1 tab PO DAILY Tobacco use date assessed: 03/26/24 Fall risk assessment: No Falls in past year Last assessed Fall Risk: 03/26/24 Dental Screening Dental Screen Date: 03/26/24 Did you have a dental visit in the last 12 months?: No Did you have a dental problem in the last 6 months where you did not have access to dental care?: No HPI PE HPI Details Patient comes in today for his annual physical examination - was last seen back in April 2023 States that he continues to experience increased pain over his lower back and recurrent pain over his left lower abdomen, which he states have been going on for years Notes that he is also now experiencing some pain over his left thigh area, more over the posterolateral aspect He was sent for a repeat MRI of his lumbar spine when he was seen last year but he did not get it done as he had some issues with his insurance at the time States that he spent the better part of last winter working on his boat and was going up and down the ladders on his boat and recalls that he was experiencing increased pain over his lower back almost all winter and would now like to get back to getting an MRI done to find out the reason for his symptoms and what we can do about them He denies any headaches or dizziness Denies any chest pains, no SOB No nausea/vomiting and no change in bowel habits noted He denies any acute urinary symptoms Had his follow up labs done a few days ago - to discuss his results Had his screening colonoscopy last done a year ago and he was advised to get a repeat colonoscopy in 5 to 6 years [facility] Medical History (Updated 03/27/24 @ 03:57 by Tye Mckoy MD) Obesity (BMI 30-39.9) Diverticulosis of colon Hematuria Irritable bowel syndrome (IBS) Overweight (BMI 25.0-29.9) Smoker Renal cyst Benign prostatic hyperplasia without lower urinary tract symptoms Lumbar degenerative disc disease Benign essential hypertension Mixed hyperlipidemia Surgical History History of colonoscopy with polypectomy History of hemorrhoidectomy History of lumbar surgery History of hernia repair Family History Father Myocardial infarction CVD (cardiovascular disease) Mother Diabetes Head injury Sister Stroke Maternal Grandmother Diabetes Paternal Grandfather Myocardial infarction Paternal Uncle Myocardial infarction Brother No problems noted. Sister No problems noted. Social History Housing: Apartment Alcohol intake: current Alcohol intake frequency: holidays/special occasions only Patient Tobacco Use Status: Current everyday Tobacco user Tobacco use type: Cigarette Cigarette Packs Per Day: 0.5 Cigarettes Per Day: 10.0 Years Smoked: 40 Second Hand Smoke Exposure: Yes service: No Current occupational status: retired Cognitive needs: No Hearing needs: No Vision needs: Yes (reading glasses) Questionnaire PHQ-9 Over the last 2 weeks, how often have you been bothered by any of the following problems? 1. Little interest or pleasure in doing things: not at all 2. Feeling down, depressed, or hopeless: not at all 3. Trouble falling or staying asleep, or sleeping too much: not at all 4. Feeling tired or having little energy: not at all 5. Poor appetite or overeating: not at all 6. Feeling bad about yourself - or that you are a failure or have let yourself or your family down: not at all 7. Trouble concentrating on things, such as reading the newspaper or watching television: not at all 8. Moving or speaking so slowly that other people could have noticed. Or the opposite - being so fidgety or restless that you have been moving around a lot more than usual: not at all 9. Thoughts that you would be better off or of hurting yourself in some way: not at all Total score: 0 Depression Screening Interpretation: Negative Depression Screening Done: Yes 47898 - PHQ-9 Billing: Yes Source: Developed by Drs. Dale Hayes, Sarita Mayberry, Cortes Ospina and colleagues, with an educational ty from [employer]. Thrive Questionnaire Date Thrive assessed: 03/26/24 I am a: Patient What is your living situation today?: I have a steady place to live Within the past 12 months, did the food you bought not last and you didn't have the money to get more?: Never true Within the past 12 months, did you worry whether your food would run out before you got money to buy more?: Never true Do you have trouble paying for medicines?: No Do you have trouble getting transportation to medical appointments?: No Do you have trouble paying your heating and electricity bill?: No Do you have trouble taking care of your child, family member or friend?: No Do you have trouble with day-to-day activities such as bathing, preparing meals, shopping, managing finances, etc.?: No Are you currently unemployed and looking for a job?: No Are you interested in more education?: No Please select the resources that you would like help with: None Currently or been in a relationship where the following occur: no concerns reported THRIVE Score: 0 AUDIT C Alcohol Use Questionnaire (AUDIT-C) 1. How often do you have a drink containing alcohol?: Monthly or less 2. How many drinks containing alcohol do you have on a typical day when you are drinking?: 1 or 2 3. How often do you have six or more drinks on one occasion?: Never Total Score: 1 Score Reviewed/Action Taken: Yes TEOFILO-7 AMB Questionnaire TEOFILO-7 Date TEOFILO - 7 assessed: 03/26/24 Feeling nervous, anxious, or on edge: 0 = Not at all Not being able to stop or control worryin = Not at all Worrying too much about different things: 0 = Not at all Trouble relaxin = Not at all Being so restless that it is hard to sit still: 0 = Not at all Becoming easily annoyed or irritable: 0 = Not at all Feeling afraid as if something awful might happen: 0 = Not at all Total TEOFILO-7 score (0-4 normal; 5-9 mild; 10-14 moderate; 15-21 severe): 0 Source: Developed by Drs. Dale Hayes, Sarita Mayberry, Cortes Ospina and colleagues, with an educational ty from [employer]. TEOFILO-7 Assessment Billing TEOFILO-7 Assessment Tool: TEOFILO-7 Assessment 42866 Review of Systems Const Denies chills, Reports fatigue, Denies fever(s), Denies headache(s) and Denies weakness Eyes Denies blurry vision, Denies irritation and Denies itchy eyes ENT Denies dysphagia, Denies dizziness, Denies otalgia, Denies headache(s), Denies neck pain, Denies odynophagia and Denies sore throat Card Denies chest pain, Denies syncope, Denies rapid heart rate, Denies irregular heart rhythm, Denies palpitations and Denies dyspnea Resp Denies chest congestion, Denies cough, Denies dyspnea and Denies wheezing GI Reports abdominal pain (chronic, over the lower abdomen bilaterally but worse on the LLQ), Denies bloating, Denies constipation, Denies dysphagia, Denies diarrhea, Denies nausea, Denies odynophagia and Denies vomiting Denies difficulty urinating, Denies dysuria, Denies urinary frequency and Denies urinary urgency Musc Reports back pain (over the lower back - chronic), Reports arthralgias (diffuse), Denies joint swelling, Denies muscle weakness, Denies neck pain and Reports stiffness Skin/Breast Denies rash, Denies sores and Denies unusual bruising Neuro Denies dizziness, Denies syncope, Denies headache(s), Denies paresthesias and Denies weakness Psych Denies anxiety and Denies depression Endo Reports fatigue and Denies palpitations Aller/Immun Denies itchy eyes and Denies wheezing Physical exam (Primary Care) Vital Signs: Last Vital Signs Pulse 84 03/26/24 16:27 BP 138/62 03/26/24 16:27 Pulse Ox 96 03/26/24 16:27 Oxygen Delivery Method Room Air 03/26/24 16:27 BMI result Body Mass Index 29.6 Tobacco/Smoking Status: Tobacco use Status Tobacco use date assessed 03/26/24 03/26/24 16:28 Patient Tobacco Use Status Current everyday Tobacco 03/26/24 16:28 Tobacco use type Cigarette 03/26/24 16:28 PHQ-9: PHQ-9 Score PHQ-9: Total score 0 03/26/24 19:21 Depression Screening Interpretation: Negative Thrive Assessment: Date of Thrive Assessment Date Thrive assessed 03/26/24 03/26/24 16:36 Currently or been in a relationship where the following occur: no concerns reported Const General: no acute distress, alert and awake Orientation/consciousness: patient oriented x3 [facility] Head: Yes normocephalic and Yes atraumatic Ears: external ears normal, TM's normal bilaterally and EAC's normal General nose exam: No nasal discharge present Face and sinus: Yes normal facial exam and Yes sinuses nontender Teeth and gingiva: dentition normal Throat: Yes posterior oropharynx normal and Yes tonsils normal (no TP congestion) Eyes Eyelids: Yes eyelids normal Conjunctivae: conjunctivae normal Pupils: Equal, round and reactive pupils present EOM: EOMs intact bilaterally Neck Neck: Yes no lymphadenopathy and Yes supple Thyroid: Thyroid normal Resp Auscultation: clear to auscultation bilaterally, no rales and no wheezes Cardio Rate: regular rate Rhythm: regular rhythm Heart sounds: no murmurs GI Palpation (GI): Soft to palpation, Tenderness to palpation present (GI) (over the muscles of the lower abdomen - worse on the left side), no guarding, not rigid, No hepatosplenomegaly present and No Rebound tenderness present Auscultation: normal bowel sounds General: Yes no CVA tenderness Back/Spine/Pelvis Back: no CVA tenderness Thoracic/Lumbar Spine: lumbar spinal tenderness and straight leg raise positive left Skin Lesions: no lesions Rashes: no rashes Neuro General: patient oriented x3, moves all extremities, no focal motor deficits and CN's II-XI intact bilaterally Cranial nerves: Yes Equal, round and reactive pupils present Cognition (Neuro): normal cognition Gait exam (Neuro): Normal gait present Extrem General: Yes no clubbing, cyanosis or edema Results Reviewed Results Reviewed: Laboratory Tests 08/03/21 08/03/21 08/17/22 08:33 09:00 11:24 WBC 9.2 7.0 Hgb 14.3 14.0 Hct 42.0 40.9 L Plt Count 326 321 Sodium 140 140 Potassium 4.4 4.8 Creatinine 0.87 0.75 Estimated GFR > 60 > 60 Fasting Glucose 115 H 109 H Hemoglobin A1c % 5.6 Calcium 9.3 9.0 AST 19 16 ALT 28 19 Triglycerides 259 76 Cholesterol 266 D 160 D LDL Cholesterol, Calc 172 106 HDL Cholesterol 43 D 39 Prostate Specific Ag 2.89 25-OH Vitamin D Total 30.6 TSH 2.76 Free T4 Ur Specific [place] >= 1.030 H Specific [place] (Auto) Urine Protein NEG Urine Glucose (UA) NEG Urine Blood TRACE Urine Nitrite Ur Leukocyte Esterase 08/23/22 08/29/22 02/21/24 09:00 13:47 14:12 WBC Hgb Hct Plt Count Sodium Potassium Creatinine Estimated GFR Fasting Glucose Hemoglobin A1c % Calcium AST ALT Triglycerides Cholesterol LDL Cholesterol, Calc HDL Cholesterol Prostate Specific Ag 2.95 25-OH Vitamin D Total TSH Free T4 Ur Specific [place] 1.025 Specific [place] (Auto) 1.030 Urine Protein Negative Urine Glucose (UA) Negative Urine Blood Urine Nitrite Ur Leukocyte Esterase 03/21/24 03/21/24 14:59 15:00 WBC 9.7 Hgb 14.1 Hct 41.1 L Plt Count 329 Sodium 140 Potassium 4.0 Creatinine 0.80 Estimated GFR > 60 Fasting Glucose 108 H Hemoglobin A1c % Calcium 9.0 D AST 14 ALT 14 Triglycerides 92 Cholesterol 199 LDL Cholesterol, Calc 136 H HDL Cholesterol 45 Prostate Specific Ag 25-OH Vitamin D Total 26.3 L TSH 4.30 H Free T4 0.79 Ur Specific [place] >= 1.030 H Specific [place] (Auto) Urine Protein Trace Urine Glucose (UA) Negative Urine Blood Negative Urine Nitrite Negative Ur Leukocyte Esterase Trace H Assessment and Plan Assessment & Plan (1) Annual physical exam: Code(s): Z00.00 - Encounter for general adult medical examination without abnormal findings Plan: Results of his labs done a few days ago reviewed and discussed with patient He is up-to-date with his screening colonoscopy - had it done in April 2023 and will be due for his repeat colonoscopy in 5 to 6 years (2) Lumbar degenerative disc disease: Comment: Lumbar spine MRI done back in November 2015 showed (+) multilevel degenerative lumbar spondylosis with a left lateral broad-based disc protrusion at L1-L2 Code(s): M51.36 - Other intervertebral disc degeneration, lumbar region Plan: Patient states that his ongoing lower back symptoms have gotten worse over the year and (as mentioned in the HPI) was bothering him especially over most of the past winter Reports that he is also now experiencing some pain over his left thigh area We sent him for a repeat MRI of the lumbar spine for further evaluation last year but he reportedly had some issues with his insurance back then and ended up not getting the MRI done He is now willing to explore this again and will send him back for an MRI of his lumbar spine Have advised that we can also consider referring [facility] but will preferably have to wait and see how his MRI come out first We also tried starting him on a trial of Pregabalin 50 mg TID but it looks like he never took it (3) LLQ abdominal pain: Code(s): R10.32 - Left lower quadrant pain Plan: Discussed with patient again that his ongoing lower abdominal symptoms (pain and discomfort that feel worse on the left side) are most likely radicular pain/referred pain from his lower back, which I have also mentioned to him last year and a couple of years ago Advised that his pain are definitely not GI-related, as evidenced by his relatively normal colonoscopy done last year and his apparent lack of any GI-related symptoms We started him on a trial of Pregabalin (states that he took Gabapentin for a while a couple of years ago without any improvement or relief at all in his symptoms) but it looks like he never started taking the Rx (4) Mixed hyperlipidemia: Code(s): E78.2 - Mixed hyperlipidemia Plan: Patient is advised that his cholesterol levels, especially his LDL cholesterol, is again slightly elevated (higher than previous) on his recent labs Reinforced low cholesterol diet - patient admits that he has slacked off on his diet over the past several months Continue Pravastatin 40 mg QD Will have him recheck his labs and fasting lipids in 6 months for follow up (5) Benign essential hypertension: Code(s): I10 - Essential (primary) hypertension Plan: Reinforced low sodium diet - goal is systolic BP of at least 120 to 130 mm or less Continue Lisinopril 5 mg QD (6) Impaired fasting glucose: Code(s): R73.01 - Impaired fasting glucose Plan: His FBS was again slightly elevated on his recent labs Reinforced low calorie/low carb diet Will recheck his FBS and HgbA1c in 6 months (7) Arthralgia: Code(s): M25.50 - Pain in unspecified joint Qualifiers: Joint pain location: unspecified Qualified Code(s): M25.50 - Pain in unspecified joint Plan: Are most likely due to osteoarthritis Continue Celecoxib 100 mg BID PRN for pain (8) Benign prostatic hyperplasia without lower urinary tract symptoms: Code(s): N40.0 - Benign prostatic hyperplasia without lower urinary tract symptoms Plan: Follow up with urology as scheduled - states that his urinary symptoms are mostly manageable An enlarged prostate gland was seen incidentally on his abdominal CT done back in November 2018 Continue Tadalafil 5 mg QD (9) Complex renal cyst: Comment: Abdominal x-rays done in June 2020 revealed no interval changes in the complex exophytic cyst at the upper pole of the left kidney; there are also small bilateral simple renal cysts noted Code(s): N28.1 - Cyst of kidney, acquired Plan: Repeat abdominal and pelvic CT last done on 08/31/2021 revealed (+) continued stable appearance of a complex left renal cyst, with coarse central septal calcifications Previous abdominal CT done on 11/29/2018 showed a stable complex cyst in the upper pole of the left kidney measuring 2.6 x 3.2 cm with septal calcification. There are also some right renal cysts that appear stable Follow up with urology as scheduled (10) Smoker: Code(s): F17.200 - Nicotine dependence, unspecified, uncomplicated Plan: Counseled again on smoking cessation (11) Overweight (BMI 25.0-29.9): Code(s): E66.3 - Overweight Plan: Reinforced diet/exercise as tolerated/lose weight Plan Follow up in 6 months Orders: Orders MR lumbar spine wo con 03/26/24 M47.27 - Other spondylosis with radiculopathy, lumbosacral region Complete Blood Count Auto Diff 6 Months D64.9 - Anemia, unspecified Comprehensive [place]ts. Panel Fast 6 Months E78.00 - Pure hypercholesterolemia, unspecified Lipid Panel 6 Months E78.00 - Pure hypercholesterolemia, unspecified Vitamin D 25-OH Total 6 Months E55.9 - Vitamin D deficiency, unspecified TSH reflex Free T4 6 Months E78.00 - Pure hypercholesterolemia, unspecified UA CC w/rflx Micro + Cult 6 Months R30.0 - Dysuria Hemoglobin A1c 6 Months R73.01 - Impaired fasting glucose Coding Level of Care Code Est Pt Prev Care >65y(01326) Diagnoses Annual physical exam Z00.00 Lumbar degenerative disc disease M51.36 LLQ abdominal pain R10.32 Mixed hyperlipidemia E78.2 Benign essential hypertension I10 Impaired fasting glucose R73.01 Arthralgia, unspecified joint M25.50 Joint pain location: unspecified Benign prostatic hyperplasia without lower urinary tract symptoms N40.0 Complex renal cyst N28.1 Smoker F17.200 Overweight (BMI 25.0-29.9) E66.3 Additional Codes TEOFILO-7 Assessment Billing - TEOFILO-7 Assessment Tool: TEOFILO-7 Assessment 81121 ([id number])
[2024-03-26 16:27] VITALS: BP 138/62; PULSE 84; O2SAT 96; BMI 29.6
== END 2024-03-26 17:21 | disposition home or self-care (01) ==
PROVIDERS: PCP Internal Medicine; Visit Provider Internal Medicine
DX: R10.32 Left lower quadrant pain (principal); M51.36 Other intervertebral disc degeneration, lumbar region; E78.2 Mixed hyperlipidemia; I10 Essential (primary) hypertension; R73.01 Impaired fasting glucose; M25.50 Pain in unspecified joint; N40.0 Benign prostatic hyperplasia without lower urinary tract symptoms; N28.1 Cyst of kidney, acquired; F17.200 Nicotine dependence, unspecified, uncomplicated; E66.3 Overweight
CPT/HCPCS: 99214

== ENCOUNTER 2024-04-18 07:07 | Outpatient (REF) | payer MEDICARE, OTHER, SELFPAY ==
--- NOTE | ~2024-04-18 | MR_ITS ---
EXAMINATION: MR LUMBAR SPINE WITHOUT CONTRAST CLINICAL INFORMATION: 68-year-old with low back pain and left leg numbness. Spondylosis with radiculopathy, lumbosacral region. COMPARISON: 12/25/2015 MRI. TECHNIQUE: MRI of the lumbar spine was obtained using routine sequences without contrast. FINDINGS: Coronal Alignment: There is mild S-shaped lumbar scoliotic curvature, minimally convex to the left at L4-L5 and to the right at L2, stable in appearance. Sagittal Alignment: Mild degrees of broad retrolisthesis at L3-L4, L4-L5 and L5-S1, unchanged. Lumbosacral Junction: Normal. There are 5 [id number] lumbar-type vertebral bodies. Vertebral Bodies: Vertebral body heights are well-maintained, stable in appearance. Disc Spaces and Endplates: Advanced multilevel DDD and spondylosis is seen between L3-L4 and L5-S1 inclusive with severe degrees of disc space height loss, with multilevel disc desiccation, Schmorl's nodes and spondylosis largely similar to the previous exam. [id number] degrees of intervertebral disc space height loss are noted at L2-L3 and to a lesser degree at L1-L2, stable in appearance with disc desiccation and spondylosis. There is a Schmorl's node along the inferior endplate of T12, unchanged. Spinal Canal: No abnormal developmental findings. Bone Marrow: Type I degenerative marrow signal changes are seen along the endplates at L4-L5 which have progressed from the previous study and to a lesser degree at L5-S1 also progressed from prior exam. Type I marrow signal changes along the endplates at L3-L4 are similar to prior exam with type I marrow signal changes along the endplates posteriorly at L2-L3 slightly progressed. Type II degenerative marrow signal changes along the endplates at L3-L4 or are similar to the previous exam. No suspicious marrow replacing process or bone marrow edema. Conus Medullaris: Terminates at L1. Morphology and signal is normal. Intradural Nerve Roots: Within normal limits. L5-S1: There is concentric disc osteophyte complex with mild retrolisthesis stable in appearance. There is left posterolateral disc osteophyte complex slightly more prominent on the current exam. There is mild to moderate bilateral facet joint hypertrophic degenerative change, left more than right similar to the previous exam without significant spinal canal stenosis. Mildly prominent epidural fat noted at this level. There is moderate to left-sided and mild right-sided neural foraminal stenosis, stable on the right and slightly progressed on the left, now with mild encroachment on the left L5 nerve root. L4-L5: Retrolisthesis and disc bulging with right paravertebral/posterolateral disc osteophyte complex similar to the previous study with slight flattening of the ventral dural sac grossly unchanged. Moderate right-sided and [id number] left-sided facet joint hypertrophic degenerative changes, stable. No significant spinal canal stenosis. Mild left and moderate right-sided neural foraminal stenosis is stable without definite neural impingement. L3-L4: There is concentric disc osteophyte complex with mild retrolisthesis with slight flattening of the ventral dural sac similar to the previous exam. Mild facet joint arthropathy is noted bilaterally, stable in appearance. No significant canal or neuroforaminal stenosis, unchanged. L2-L3: Small central to left paracentral disc protrusion with mild indentation of the ventral thecal sac, stable in appearance. Underlying disc bulging is stable with mild bilateral facet joint arthropathy, right more than left. No significant central canal stenosis. Mild narrowing of the left subarticular zone is stable. No significant foraminal stenosis. L1-L2: Minor annular bulging with a superimposed left foraminal disc protrusion and small left paramedian component, stable in appearance, without significant canal or neuroforaminal stenosis. Mild facet joint arthropathy on the left. T12-L1: There is a new left paramedian to subarticular extruded disc herniation with caudal migration, with mass effect on the left ventral thecal sac, with probable left L1 neural impingement in the subarticular recess. There is ligamentum flavum thickening asymmetric to the right and mild central canal narrowing related to disc herniation. Paravertebral and Included Extraspinal Soft Tissues: The paravertebral soft tissues appear grossly unremarkable. There is a partially imaged 3.3 cm right renal parapelvic cyst increased in size from the previous exam and there is a 1.3 cm simple-appearing cortical cyst, interpolar left kidney posterior cortex. Limited evaluation.?No specific follow up recommended based on the current ACR Best Practice Guidelines. MR/MR lumbar spine wo con IMPRESSION: 1. Mild S-shaped lumbar scoliotic curvature, stable in appearance with stable multilevel retrolisthesis. 2. Multilevel DDD and spondylosis, with multilevel disc osteophyte complexes, disc bulging and disc protrusions largely similar in appearance to the previous exam without significant spinal canal stenosis. 3. Multilevel bilateral facet joint arthropathy largely stable in appearance. [id number] left-sided neural foraminal stenosis at L5-S1 slightly progressed, now with mild encroachment on the exiting left L5 nerve root. Other levels of mild and moderate degrees of neural foraminal stenosis are largely unchanged as described above. 4. New left paramedian to subarticular extruded disc herniation with caudal migration at T12-L1 with probable left L1 neural impingement and probable mild central canal stenosis at this level.
== END 2024-04-18 07:08 | disposition home or self-care (01) ==
LOC: HO.MRI 07:07
PROVIDERS: PCP Internal Medicine; Visit Provider Internal Medicine
DX: M47.27 Other spondylosis with radiculopathy, lumbosacral region (principal)
CPT/HCPCS: 72148

== ENCOUNTER 2024-06-25 12:58 | Outpatient (AMB) | payer MEDICARE, OTHER, SELFPAY ==
--- NOTE | 2024-06-25 12:59 | HO.SPINEOV ---
Intake Visit Reasons: Other intervertebral disc degeneration Intake Note: Mr. Angulo is here today c/o left sided middle back to low back pain that radiates to the lower abdomen, also tingling in right hand. 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 HPI: This 68-year-old male has a history of a previous lumbar microdiskectomy 35 years ago for left leg pain from which he recovered well. Over the last 8 years he is suffering from a progressive pain that starts on the left side of his back and then radiates to his flank into his groin. Currently, the symptoms are mostly constant with the exception when he lays down. Another maneuver to get rid the pain is to put a pillow into his right flank. He denies numbness or weakness. He tried an injection in the past without results. Abdominal causes have been excluded. Physical therapy was not helpful. PMH: Hypertension, hypercholesterolemia Medications: Lisinopril Allergies: Amoxicillin Social history: Retired, nonsmoker Physical Exam: Pleasant male. He stands with a slight deviation towards the right side. He pinpoints to the painful area that starts on the left mid lumbar region and then wraps around to his left groin. No sensory deficits. No motor deficits. Radiological Studies: MRI done at [facility] on 04/18/2024 shows moderate to severe degenerative disc disease L3 to S1. More importantly there is a disc herniation T12-L1 that causes left L1 nerve compression Impression/Plan: This patient describes pain in the left L1 dermatome with the MRI showing a small disc herniation compressing the left L1 nerve root. I would like to refer him for a left L1 diagnostic block to Dr. Valencia to provide additional evidence that this is the source of his pain. He will return after the block is done. Thank you for allowing me to participate in your patients care. total time spent was 50 minutes in counseling ,coordination of plan, personal review of imaging, surgical decision making and subsequent plan Ehsan Baxter MD, PhD Spine Fellowship Trained Neurosurgeon Director, [facility] [place] [facility] Orders: Referrals Physiatry Referral M54.17 - Radiculopathy, lumbosacral region Coding Level of Care Code New Pt Level 4 (32796) Diagnoses Lumbosacral radiculopathy at L1 M54.17
== END 2024-06-25 13:48 | disposition home or self-care (01) ==
PROVIDERS: PCP Internal Medicine; Referring Provider Internal Medicine; Visit Provider Neurological Surgery
DX: M54.17 Radiculopathy, lumbosacral region (principal)
CPT/HCPCS: 99204

== ENCOUNTER → 2024-06-25 12:58 | Outpatient (BNVA) | payer MEDICARE, OTHER, SELFPAY | PROVIDERS: PCP Internal Medicine; Visit Provider Neurological Surgery | DX: M54.17 Radiculopathy, lumbosacral region (principal) | CPT/HCPCS: 99202 ==

== ENCOUNTER 2024-08-19 15:38 | Outpatient (AMB) | payer MEDICARE, OTHER, SELFPAY ==
[2024-08-19 15:42] VITALS: BP 140/90; BMI 27.5
--- NOTE | 2024-08-19 15:42 | MHC.PC.OV ---
Vital Signs 08/19/24 15:42 Height 5 ft 8 in Weight 181 lb BMI 27.5 BP 140/90 H Blood Pressure Location Lt brachial Position Sitting Intake Visit Reasons: pain on his lower left abdomen possible hernia Technology Analyst Required: No Accompanied by: Self / Same As Patient Allergies amoxicillin Allergy (Intermediate, Verified 08/19/24 15:55) stomach upset, nausea, hives Medication List - Last Reconciled 08/19/24 by Tye Mckoy MD ascorbate calcium (vitamin C) 500 mg PO DAILY celecoxib 100 mg PO BID 30 days lisinopril 5 mg PO DAILY pravastatin 40 mg PO DAILY 90 days pregabalin 50 mg PO TID 30 days tadalafil 5 mg PO DAILY 90 days vitamin B complex (B Complex-Vitamin B12 tablet) 1 tab PO DAILY Tobacco use date assessed: 03/26/24 Fall risk assessment: No Falls in past year Last assessed Fall Risk: 08/19/24 Dental Screening Dental Screen Date: 08/19/24 Did you have a dental visit in the last 12 months?: No Did you have a dental problem in the last 6 months where you did not have access to dental care?: No Was dental information given to patient?: Patient has dentist HPI pain on his lower left abdomen possible hernia HPI Details Patient comes in today for evaluation of a possible hernia States that he may have overexerted himself during a recent sailing trip about 3 weeks ago Recalls that he was pulling on the heavy mast on the boat when he suddenly felt a sharp pain over his left lower abdominal area and the pain has been present since although the severity of the pain has decreased somewhat recently He also recalled seeing a small bump or mass over his left lower abdomen and left inguinal area immediately after his injury but this seems to have also subsided over the past couple of weeks States that he has been playing it safe for the past 3 weeks by avoiding any heavy straining or lifting but notes that he cannot stand for long periods of time or walk more than a few feet without stopping to rest as the pain over his left lower abdomen/left inguinal area will get worse with either of the above activity Notes that the pain would sometimes radiate down into his left testicle He denies any problems with his bowel or bladder movements Denies any nausea or vomiting Denies any chest pains or SOB Relates that he had right inguinal hernia surgery done over [address] Rajiv Monroe and never had surgery on his left side [facility] Medical History (Updated 08/19/24 @ 16:25 by Tye Mckoy MD) Obesity (BMI 30-39.9) Diverticulosis of colon Hematuria Irritable bowel syndrome (IBS) Overweight (BMI 25.0-29.9) Smoker Renal cyst Benign prostatic hyperplasia without lower urinary tract symptoms Lumbar degenerative disc disease Benign essential hypertension Mixed hyperlipidemia Surgical History (Updated 08/19/24 @ 16:14 by Tye Mckoy MD) History of colonoscopy with polypectomy History of hemorrhoidectomy History of lumbar surgery History of hernia repair Family History Father Myocardial infarction CVD (cardiovascular disease) Mother Diabetes Head injury Sister Stroke Maternal Grandmother Diabetes Paternal Grandfather Myocardial infarction Paternal Uncle Myocardial infarction Brother No problems noted. Sister No problems noted. Social History Housing: Apartment Alcohol intake: current Alcohol intake frequency: holidays/special occasions only Patient Tobacco Use Status: Current everyday Tobacco user Tobacco use type: Cigarette Cigarette Packs Per Day: 0.5 Cigarettes Per Day: 10.0 Years Smoked: 40 Packs Per Year: 20 Packs per year/per ci.00 e-Cigarette/Vaping Use: Never Used Second Hand Smoke Exposure: Yes service: No Current occupational status: retired Cognitive needs: No Hearing needs: No Vision needs: Yes (reading glasses) Questionnaire Thrive Questionnaire Date Thrive assessed: 03/26/24 Are you currently unemployed and looking for a job?: I choose not to answer this question TEOFILO-7 AMB Questionnaire TEOFILO-7 Date TEOFILO - 7 assessed: 03/26/24 Source: Developed by Drs. Dale Hayes, Sarita Mayberry, Cortes Ospina and colleagues, with an educational ty from [employer]. Review of Systems Const Denies chills, Reports fatigue, Denies fever(s) and Denies headache(s) ENT Denies dizziness, Denies headache(s), Denies neck pain and Denies sore throat Card Denies chest pain, Denies irregular heart rhythm, Denies palpitations and Denies dyspnea Resp Denies chest congestion, Denies cough and Denies dyspnea GI Details: (+) chronic lower abdomen pain bilaterally but worse on the LLQ, especially since his injury about 3 weeks ago Denies constipation, Denies diarrhea, Denies nausea and Denies vomiting Denies difficulty urinating, Denies dysuria and Denies urinary frequency Musc Denies abnormal gait, Reports back pain (over the lower back - chronic), Reports arthralgias (diffuse), Denies neck pain and Reports stiffness Skin/Breast Denies rash Neuro Denies abnormal gait, Denies dizziness and Denies headache(s) Endo Reports fatigue and Denies palpitations Physical exam (Primary Care) Vital Signs: Last Vital Signs BP 140/90 H 08/19/24 15:42 BMI result Body Mass Index 27.5 Tobacco/Smoking Status: Tobacco use Status Tobacco use date assessed 03/26/24 08/19/24 15:49 Patient Tobacco Use Status Current everyday Tobacco 08/19/24 15:49 Tobacco use type Cigarette 08/19/24 15:49 e-Cigarette/Vaping Use Never Used 08/19/24 15:49 Thrive Assessment: Date of Thrive Assessment Date Thrive assessed 03/26/24 08/19/24 15:49 Const General: no acute distress and alert Neck Neck: Yes no lymphadenopathy and Yes supple Thyroid: Thyroid normal Resp Auscultation: clear to auscultation bilaterally Cardio Rate: regular rate Rhythm: regular rhythm Heart sounds: no murmurs GI Palpation (GI): Soft to palpation, Tenderness to palpation present (GI) (over the LLQ as well as the left inguinal areas), no guarding, Rigid due to palpation (mildly on palpation), no masses and No Rebound tenderness present Auscultation: normal bowel sounds General: Yes no CVA tenderness Back/Spine/Pelvis Back: no CVA tenderness Thoracic/Lumbar Spine: lumbar spinal tenderness and straight leg raise positive Skin Rashes: no rashes Extrem General: Yes no clubbing, cyanosis or edema Assessment and Plan Assessment & Plan (1) Left lower quadrant abdominal pain: Code(s): R10.32 - Left lower quadrant pain Plan: Discussed with patient that at this time, it would be very difficult to determine if he has a hernia or not based on his symptoms alone and he will need to get an abdominal and pelvic CT RISSA for further evaluation - CT ordered Advised that if CT shows (+) hernia, then he will need referral to surgery for further management. Conversely, if CT is negative, then his symptoms are likely due to a significant strain / injury of his left lower abdominal muscles Advised him to continue to avoid and heavy straining or activities until he gets the CT done Plan Follow up as scheduled in September 2024 Orders: Orders CT abdomen pelvis w IV con Today R10.32 - Left lower quadrant pain Coding Level of Care Code Est Pt Level 3 (41960) Diagnoses Left lower quadrant abdominal pain R10.32
== END 2024-08-19 16:12 | disposition home or self-care (01) ==
PROVIDERS: PCP Internal Medicine; Visit Provider Internal Medicine
DX: R10.32 Left lower quadrant pain (principal)

== ENCOUNTER → 2024-08-19 15:38 | Outpatient (BNVA) | payer MEDICARE, OTHER, SELFPAY | PROVIDERS: PCP Internal Medicine; Visit Provider Internal Medicine | DX: R10.32 Left lower quadrant pain (principal) | CPT/HCPCS: 99212 ==

== ENCOUNTER 2024-08-28 11:10 | Outpatient (REF) | payer MEDICARE, OTHER, SELFPAY ==
--- NOTE | ~2024-08-28 | CT_ITS ---
EXAMINATION: CT ABDOMEN AND PELVIS WITH CONTRAST CLINICAL INFORMATION: Left lower quadrant pain x3 weeks . COMPARISON: CT abdomen and pelvis 08/31/[address] abdomen pelvis dating back to 03/03/2011 TECHNIQUE: Multidetector volumetric images were obtained from the superior aspect of the liver through the pubic symphysis following administration 85 mL of Omnipaque 350 intravenous contrast. Sagittal and coronal reformatted images were obtained on the technologist's workstation. Oral contrast: No This CT examination was performed using dose optimization techniques as appropriate, variously including the following: *Automated exposure control *Adjustment of mA and/or kV according to patient size (this includes techniques or standardized protocols for targeted exams where dose is matched to indication/reason for exam; i.e. extremities or head) *Use of iterative reconstruction technique DLP: 417 mGy-cm FINDINGS: LUNG BASES: The visualized lung bases are unremarkable. LIVER, GALLBLADDER, AND BILIARY TREE: The liver is normal in size, shape, and attenuation. A benign cyst is present in the right lobe of the liver. No suspicious solid focal hepatic lesion or biliary ductal dilatation is present. The gallbladder is unremarkable with no evidence of radiopaque gallstones, gallbladder wall thickening, or obvious pericholecystic inflammatory changes. PANCREAS: Unremarkable. SPLEEN: Unremarkable. ADRENAL GLANDS: Unremarkable. KIDNEYS AND URETERS: The kidneys are normal in size, shape, and attenuation. No hydronephrosis, hydroureter, or calculi seen. Bilateral benign Bosniak class I and Bosniak class II renal cysts are noted which require no additional imaging or follow-up. No solid renal masses are seen. The Bosniak class II mass is at the left upper pole and has coarse calcifications associated with it. Calcifications have increased over time. BLADDER: Unremarkable. GASTROINTESTINAL TRACT: Moderately extensive sigmoid diverticulosis is present without convincing evidence of diverticulitis. The small and large bowel are otherwise unremarkable. The appendix is unremarkable. ABDOMINAL WALL: No significant hernia is appreciated. LYMPH NODES: Normal. VASCULAR: Unremarkable. PELVIC VISCERA: There is moderate BPH. Seminal vesicles appear normal . Bilateral hydroceles are present in the scrotum. OSSEOUS STRUCTURES: Marked degenerative changes are present in the spine from L3 through S1. No bony destructive lesions. CT/CT abdomen pelvis w IV con IMPRESSION: 1. A definitive cause for the patient's left lower quadrant pain has not been found. 2. Benign hepatic cyst. 3. Benign Bosniak class I and Bosniak class II renal cysts which need no additional imaging or follow-up. 4. Sigmoid diverticulosis without diverticulitis. 5. Moderate BPH with bilateral hydroceles. 6. Marked degenerative changes in the spine. Fleischner guidelines were followed. Electronically signed by: Christian Garcia MD 08/28/2024 03:57 PM EDT
[2024-08-28] MEDS: iohexoL 350 MG/ML 100 ML INFUS..BTL IV (14:16)
[2024-08-28] MEDS: Barium Sulfate Oral (Mocha) 450 ML ORAL.SUSP 900 ML PO (14:36)
[2024-08-28] MEDS: Barium Sulfate Oral (Mocha) 450 ML ORAL.SUSP PO (14:37)
[2024-08-29 08:21] LABS: Creatinine POC 0.7 mg/dL (0.5-1.4); GFR POC > 60
== END 2024-08-28 11:11 | disposition home or self-care (01) ==
LOC: HO.CT 11:10
PROVIDERS: PCP Internal Medicine; Visit Provider Internal Medicine
DX: R10.32 Left lower quadrant pain (principal)
CPT/HCPCS: 74177; 82565; Q9967

== ENCOUNTER 2024-08-29 10:18 | Outpatient (AMB) | payer MEDICARE, OTHER, SELFPAY ==
--- NOTE | 2024-08-29 10:20 | A.OFFVIS_ITS ---
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 He is a patient of Dr. Mckoy. He is seen for the following urologic conditions - complex renal cyst - inguinal pain - erectile dysfunction Telemedicine Evaluation 15 min Consultation DoxJumbas [place] Video Low-dose daily tadalafil Good effect - bladder and erections Main issue is left flank pain which is secondary to prior surgery Start finasteride for large prostate Erectile dysfunction Progressive Trouble maintaining erection Positive effect with daily tadalafil Complex renal cyst Followed over number of years Imaging - 09/15 CT scan 3.6 cm renal cyst right side, 2.5 cm complex cyst left side with calcification basically unchanged compared to prior imaging MRI and ultrasound - 08/17 renal ultrasound right-sided 3.6 cm cyst, left side complex cyst with calcification Lower urinary tract symptoms Mild in occasional nocturia Does not reach level of bother PSA - 04/14 3.0, 08/17 2.9 Left inguinal disruption Prior radiating pain left inguinal area up flank On exam has marked tenderness at lateral aspect of left inguinal canal and medial aspect of right inguinal canal Previously has responded to anti-inflammatories Pain predominantly from left side Known degenerative disc disease Prior Celrex [facility] Medical History (Updated 08/19/24 @ 16:25 by Tye Mckoy MD) Obesity (BMI 30-39.9) Diverticulosis of colon Hematuria Irritable bowel syndrome (IBS) Overweight (BMI 25.0-29.9) Smoker Renal cyst Benign prostatic hyperplasia without lower urinary tract symptoms Lumbar degenerative disc disease Benign essential hypertension Mixed hyperlipidemia Surgical History (Updated 08/19/24 @ 16:14 by Tye Mckoy MD) History of colonoscopy with polypectomy History of hemorrhoidectomy History of lumbar surgery History of hernia repair Family History Father Myocardial infarction CVD (cardiovascular disease) Mother Diabetes Head injury Sister Stroke Maternal Grandmother Diabetes Paternal Grandfather Myocardial infarction Paternal Uncle Myocardial infarction Brother No problems noted. Sister No problems noted. Social History Housing: Apartment Alcohol intake: current Alcohol intake frequency: holidays/special occasions only Patient Tobacco Use Status: Current everyday Tobacco user Tobacco use type: Cigarette Cigarette Packs Per Day: 0.5 Cigarettes Per Day: 10.0 Years Smoked: 40 e-Cigarette/Vaping Use: Never Used Second Hand Smoke Exposure: Yes service: No Current occupational status: retired Cognitive needs: No Hearing needs: No Vision needs: Yes (reading glasses) Telehealth Telehealth Location of provider rendering services: practice address Location of patient: address on file Patient Identification confirmed using: Name, : Yes Telehealth method: video Patient verbally consented to treatment: Yes Patient verbally consented to billing insurance company: Yes Patient informed of any privacy concerns related to visit: Yes Assessment & Plan Assessment & Plan (1) Benign prostatic hyperplasia without lower urinary tract symptoms: Code(s): N40.0 - Benign prostatic hyperplasia without lower urinary tract symptoms Category: Medical (2) Erectile dysfunction: Code(s): N52.9 - Male erectile dysfunction, unspecified Category: Medical Qualifiers: Erectile dysfunction type: vasculogenic Vasculogenic erectile dysfunction type: due to arterial insufficiency Qualified Code(s): N52.01 - Erectile dysfunction due to arterial insufficiency Plan Refilled medication Add finasteride Orders: Orders Prostate Specific Antigen 6 Months N40.0 - Benign prostatic hyperplasia without lower urinary tract symptoms Medications: New finasteride 5 mg PO DAILY 90 days 90 tabs 1RF N13.8 - Other obstructive and reflux uropathy, N40.0 - Benign prostatic hyperplasia without lower urinary tract symptoms, N40.1 - Benign prostatic hyperplasia with lower urinary tract symptoms, R33.9 - Retention of urine, unspecified Changed From tadalafil 5 mg PO DAILY 90 days 90 tabs 1RF sexual activity N52.9 - Male e rectile dysfunction, unspecified To tadalafil take daily [id number] [facility] [id number] Member [id number] [facility]33 Member [id number] 5 mg PO DAILY 90 days 90 tabs 1RF sexual activity N52.9 - Male erectile dysfunction, unspecified Patient Instructions: Imaging studies, laboratory and physical exam results were discussed and reviewed in detail. No major barriers to patient understanding were identified. An opportunity to ask questions regarding the treatment plan was provided. All questions were answered. The patient expressed understanding and agreement with the above treatment plan. The patient is aware they should contact our office by phone for worsening of their current condition or the appearance of new urologic symptoms. Compliance is encouraged with any medications and followup testing that is ordered. It is a privilege to participate in the urologic care of your patient. If you have any questions or concerns regarding treatment for the above conditions, or other urologic issues, please do not hesitate to contact me. The office telephone contact is [phone]. This note is constructed using voice recognition software. While every effort has been made to ensure accuracy agricultural chemicals inspector errors may have been included. Yours sincerely, Dr Rome Leong MD, [facility] - Urology Providers of Expert, Compassionate Care for the Genitourinary System Coding Level of Care Code Tele Est Pt Level 4 (26883) Diagnoses Benign prostatic hyperplasia without lower urinary tract symptoms N40.0 Erectile dysfunction due to arterial insufficiency N52.01 Erectile dysfunction type: vasculogenic Vasculogenic erectile dysfunction type: due to arterial insufficiency
== END 2024-08-29 11:09 | disposition home or self-care (01) ==
LOC: HO.HUSH 10:18
PROVIDERS: PCP Internal Medicine; Visit Provider Urology
DX: N40.0 Benign prostatic hyperplasia without lower urinary tract symptoms (principal); N52.01 Erectile dysfunction due to arterial insufficiency
CPT/HCPCS: 99214

== ENCOUNTER → 2024-08-29 10:18 | Outpatient (BNVA) | payer MEDICARE, OTHER, SELFPAY | PROVIDERS: PCP Internal Medicine; Visit Provider Urology ==

== ENCOUNTER 2024-09-17 14:37 | Outpatient (AMB) | payer MEDICARE, OTHER, SELFPAY ==
--- NOTE | 2024-09-17 14:41 | HO.SPINEOV ---
Intake Visit Reasons: back pain Intake Note: Mr. Angulo is here today c/o back pain. Multimedia Producer Required: No Allergies amoxicillin Allergy (Intermediate, Verified 08/29/24 10:21) stomach upset, nausea, hives Assessment & Plan Assessment & Plan (1) Lumbosacral radiculopathy at L1: Code(s): M54.17 - Radiculopathy, lumbosacral region Category: Medical (2) Left lower quadrant abdominal pain: Code(s): R10.32 - Left lower quadrant pain Category: Medical Plan Dear colleague, On 09/17/2024 I saw Dale Angulo for increasing pain in his back radiating to his left lower abdomen and groin. As you know, he does have a disc herniation compressing the left L1 nerve root. He tells me that he was on a boat and had to lift the anchor that cause a significant increase in his symptoms. Apparently, he did get an L1 nerve root injection which did not relieve his pain. He underwent a CT of the abdomen that revealed no significant abnormalities for the abdominal organs other than prostate hypertrophy. He states that he is home bound due to the amount of pain. The pain radiates from his upper lumbar region to his buttocks and then crosses over to his left abdomen. On exam he stands in an antalgic positions towards the right side. There are no numbness or weakness. I think the most likely diagnosis is an L1 radiculopathy. I will repeat the MRI of the lumbar spine to assess the disc herniation. He will return for follow-up after the study is done. I spent 33 minutes in his consult to review previous imaging, history and discussing plan of care. Ehsan Baxter MD, PhD Spine Fellowship Trained Neurosurgeon Director, [facility] [place] [facility] Orders: Orders MR lumbar spine wo con Today M54.17 - Radiculopathy, lumbosacral region Coding Level of Care Code Est Pt Level 4 (05893) Diagnoses Lumbosacral radiculopathy at L1 M54.17 Left lower quadrant abdominal pain R10.32
== END 2024-09-17 17:33 | disposition home or self-care (01) ==
PROVIDERS: PCP Internal Medicine; Visit Provider Neurological Surgery
DX: M54.17 Radiculopathy, lumbosacral region (principal); R10.32 Left lower quadrant pain
CPT/HCPCS: 99214

== ENCOUNTER → 2024-09-17 14:37 | Outpatient (BNVA) | payer MEDICARE, OTHER, SELFPAY | PROVIDERS: PCP Internal Medicine; Visit Provider Neurological Surgery | DX: M54.17 Radiculopathy, lumbosacral region (principal); R10.32 Left lower quadrant pain | CPT/HCPCS: 99212 ==

== ENCOUNTER 2024-09-24 11:25 | Outpatient (REF) | payer MEDICARE, OTHER, SELFPAY ==
--- NOTE | ~2024-09-24 | MR_ITS ---
EXAMINATION: MR LUMBAR SPINE WITHOUT CONTRAST CLINICAL INFORMATION: Radiculopathy, lumbosacral region. COMPARISON: MR lumbar spine on 04/18/2024 TECHNIQUE: MRI of the lumbar spine was obtained using routine sequences without contrast. FINDINGS: Straightening of the normal lumbar lordosis. Mild levocurvature of the lower lumbar spine. Diffusely heterogeneous bone marrow signal is likely degenerative. No acute bone marrow abnormality. The vertebral body heights are preserved. Multilevel disc desiccation with severe disc height loss at L3-4, L4-5, and L5-S1. Type II endplate changes at L3-4. Multilevel endplate osteophytosis. The visualized spinal cord is normal in caliber. No abnormal cord signal. The conus medullaris terminates at L1-2. T12-L1: Left subarticular disc extrusion migrating caudally, not significantly changed from prior. Mild left eccentric spinal canal stenosis, unchanged. No significant neural foraminal narrowing. L1-2: Diffuse disc bulge. No significant spinal canal or neural foraminal narrowing. L2-3: Diffuse disc bulge and bilateral facet arthrosis. No significant spinal canal or neural foraminal narrowing. L3-4: Diffuse disc bulge with superimposed annular fissure. Bilateral facet arthrosis. No significant spinal canal or neural foraminal narrowing. L4-5: Diffuse disc bulge with superimposed annular fissure. Bilateral facet arthrosis. No significant spinal canal stenosis. Moderate right and mild left neural foraminal narrowing with the disc abutting the exiting L4 nerve roots bilaterally, unchanged. L5-S1: Diffuse disc bulge and bilateral facet arthrosis. No significant spinal canal stenosis. Moderate left and mild right neural foraminal narrowing with the disc abutting the exiting L5 nerve roots bilaterally, unchanged. The paravertebral soft tissues are unremarkable. Right renal cyst. MR/MR lumbar spine wo con IMPRESSION: Overall, no significant progression of multilevel degenerative changes throughout the lumbar spine. There is unchanged mild spinal canal stenosis at T12-L1 secondary to a left subarticular disc extrusion. Neural foraminal narrowing is worst and moderate at L4-5 on the right and L5-S1 on the left. Electronically signed by: Christ Vera MD 09/24/2024 02:27 PM EDT RP
== END 2024-09-24 11:26 | disposition home or self-care (01) ==
LOC: HO.MRI 11:25
PROVIDERS: PCP Internal Medicine; Visit Provider Neurological Surgery
DX: M54.17 Radiculopathy, lumbosacral region (principal)
CPT/HCPCS: 72148

== ENCOUNTER 2024-09-29 10:11 | Outpatient (AMB) | payer MEDICARE, OTHER, SELFPAY ==
[2024-09-29 10:22] VITALS: BP 134/86; PULSE 90; O2SAT 98; BMI 27.9
--- NOTE | 2024-09-29 10:22 | MHC.PC.OV ---
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 Accompanied by: Self / Same As Patient Allergies amoxicillin Allergy (Intermediate, Verified 09/29/24 12:15) stomach upset, nausea, hives Medication List - Last Reconciled 09/29/24 by Tye Mckoy MD ascorbate calcium (vitamin C) 500 mg PO DAILY celecoxib 100 mg PO BID 30 days cholecalciferol (vitamin D3) 50 mcg PO DAILY 90 days finasteride 5 mg PO DAILY 90 days lisinopril 5 mg PO DAILY pravastatin 40 mg PO DAILY 90 days pregabalin 50 mg PO TID 30 days tadalafil 5 mg PO DAILY 90 days tramadol 50 mg PO TID PRN vitamin B complex (B Complex-Vitamin B12 tablet) 1 tab PO DAILY Tobacco use date assessed: 09/29/24 Fall risk assessment: No Falls in past year Last assessed Fall Risk: 09/29/24 Dental Screening Dental Screen Date: 09/29/24 Did you have a dental visit in the last 12 months?: No Did you have a dental problem in the last 6 months where you did not have access to dental care?: No Was dental information given to patient?: No HPI 6mof\u HPI Details Patient comes in today for his follow up visit He continues to complain of recurrent LLQ abdominal pain - he has this for a few years now and feels frustrated that no one seems to be able to help him figure out the exact cause of his symptoms He was seeing Dr. Baxter recently for his low back pain and states that Dr. Baxter seem to think that his lower back issues are the main source of his left lower abdominal complaints and he was sent for lumbar spine MRI for further evaluatiom States that he had the MRI done last week and that Dr. Baxter plan to see him again afterwards for follow up Patient states that he feels okay otherwise He denies any headaches or dizziness Denies any chest pains, no SOB No nausea/vomiting and no change in bowel habits noted States that his LLQ abdominal pain do not seem to be associated with oral intake or his bowel movements He did not get his previously ordered follow up labs done prior to his appointment today FORMERLY [facility], [facility] Medical History (Updated 09/29/24 @ 12:45 by Tye Mckoy MD) Vitamin D deficiency Obesity (BMI 30-39.9) Diverticulosis of colon Hematuria Irritable bowel syndrome (IBS) Overweight (BMI 25.0-29.9) Smoker Renal cyst Benign prostatic hyperplasia without lower urinary tract symptoms Lumbar degenerative disc disease Benign essential hypertension Mixed hyperlipidemia Surgical History History of colonoscopy with polypectomy History of hemorrhoidectomy History of lumbar surgery History of hernia repair Family History Father Myocardial infarction CVD (cardiovascular disease) Mother Diabetes Head injury Sister Stroke Maternal Grandmother Diabetes Paternal Grandfather Myocardial infarction Paternal Uncle Myocardial infarction Brother No problems noted. Sister No problems noted. Social History Housing: Apartment Alcohol intake: current Alcohol intake frequency: holidays/special occasions only Patient Tobacco Use Status: Current everyday Tobacco user Tobacco use type: Cigarette Cigarette Packs Per Day: 0.5 Cigarettes Per Day: 10.0 Years Smoked: 40 e-Cigarette/Vaping Use: Never Used Second Hand Smoke Exposure: Yes service: No Current occupational status: retired Cognitive needs: No Hearing needs: No Vision needs: Yes (reading glasses) Questionnaire PHQ-9 Over the last 2 weeks, how often have you been bothered by any of the following problems? 1. Little interest or pleasure in doing things: not at all 2. Feeling down, depressed, or hopeless: not at all 3. Trouble falling or staying asleep, or sleeping too much: not at all 4. Feeling tired or having little energy: not at all 5. Poor appetite or overeating: not at all 6. Feeling bad about yourself - or that you are a failure or have let yourself or your family down: not at all 7. Trouble concentrating on things, such as reading the newspaper or watching television: not at all 8. Moving or speaking so slowly that other people could have noticed. Or the opposite - being so fidgety or restless that you have been moving around a lot more than usual: not at all 9. Thoughts that you would be better off or of hurting yourself in some way: not at all Total score: 0 Depression Screening Interpretation: Negative Depression Screening Done: Yes [id number] - PHQ-9 Billing: Yes Source: Developed by Drs. Dale Hayes, Sarita Mayberry, Cortes Ospina and colleagues, with an educational ty from [employer]. Thrive Questionnaire Date Thrive assessed: 09/29/24 I am a: Patient What is your living situation today?: I have a steady place to live Within the past 12 months, did the food you bought not last and you didn't have the money to get more?: Never true Within the past 12 months, did you worry whether your food would run out before you got money to buy more?: Never true Do you have trouble paying for medicines?: No Do you have trouble getting transportation to medical appointments?: No Do you have trouble paying your heating and electricity bill?: No Do you have trouble taking care of your child, family member or friend?: No Do you have trouble with day-to-day activities such as bathing, preparing meals, shopping, managing finances, etc.?: No Are you currently unemployed and looking for a job?: I choose not to answer this question Are you interested in more education?: No Please select the resources that you would like help with: None Currently or been in a relationship where the following occur: No concerns reported THRIVE Score: 0 AUDIT C Alcohol Use Questionnaire (AUDIT-C) 1. How often do you have a drink containing alcohol?: Monthly or less 2. How many drinks containing alcohol do you have on a typical day when you are drinking?: 1 or 2 3. How often do you have six or more drinks on one occasion?: Never Total Score: 1 Score Reviewed/Action Taken: Yes TEOFILO-7 AMB Questionnaire TEOFILO-7 Date TEOFILO - 7 assessed: 09/29/24 Feeling nervous, anxious, or on edge: 0 = Not at all Not being able to stop or control worryin = Not at all Worrying too much about different things: 0 = Not at all Trouble relaxin = Not at all Being so restless that it is hard to sit still: 0 = Not at all Becoming easily annoyed or irritable: 0 = Not at all Feeling afraid as if something awful might happen: 0 = Not at all Total TEOFILO-7 score (0-4 normal; 5-9 mild; 10-14 moderate; 15-21 severe): 0 Source: Developed by Drs. Dale Hayes, Sarita Mayberry, Cortes Ospina and colleagues, with an educational ty from [employer]. Review of Systems Const Denies chills, Reports fatigue, Denies fever(s) and Denies headache(s) ENT Denies dysphagia, Denies dizziness, Denies otalgia, Denies headache(s), Denies neck pain, Denies odynophagia and Denies sore throat Card Denies chest pain, Denies irregular heart rhythm, Denies palpitations and Denies dyspnea Resp Denies chest congestion, Denies cough and Denies dyspnea GI Reports abdominal pain (on and off over the LLQ - chronic), Denies constipation, Denies dysphagia, Denies diarrhea, Denies nausea, Denies odynophagia and Denies vomiting Denies difficulty urinating, Denies dysuria and Denies urinary frequency Musc Denies abnormal gait, Reports back pain (over the lower back - chronic), Reports arthralgias (diffuse), Denies neck pain and Reports stiffness Skin/Breast Denies rash Neuro Denies abnormal gait, Denies dizziness and Denies headache(s) Psych Denies anxiety Endo Reports fatigue and Denies palpitations Physical exam (Primary Care) Vital Signs: Last Vital Signs Pulse 90 09/29/24 10:22 BP 134/86 09/29/24 10:22 Pulse Ox 98 09/29/24 10:22 Oxygen Delivery Method Room Air 09/29/24 10:22 BMI result Body Mass Index 27.9 Tobacco/Smoking Status: Tobacco use Status Tobacco use date assessed 09/29/24 09/29/24 10:25 Patient Tobacco Use Status Current everyday Tobacco 09/29/24 10:25 Tobacco use type Cigarette 09/29/24 10:25 e-Cigarette/Vaping Use Never Used 09/29/24 10:25 PHQ-9: PHQ-9 Score PHQ-9: Total score 0 09/29/24 10:34 Depression Screening Interpretation: Negative Thrive Assessment: Date of Thrive Assessment Date Thrive assessed 09/29/24 09/29/24 10:25 Currently or been in a relationship where the following occur: No concerns reported Const General: no acute distress and alert HENMT Ears: TM's normal bilaterally and EAC's normal Throat: Yes posterior oropharynx normal and Yes tonsils normal Neck Neck: Yes no lymphadenopathy and Yes supple Thyroid: Thyroid normal Resp Auscultation: clear to auscultation bilaterally, no rales and no wheezes Cardio Rate: regular rate Rhythm: regular rhythm Heart sounds: no murmurs GI Palpation (GI): Soft to palpation, Tenderness to palpation present (GI) (over the LLQ as well as over the left inguinal area), no guarding, not rigid, no masses and No Rebound tenderness present Auscultation: normal bowel sounds General: Yes no CVA tenderness Back/Spine/Pelvis Back: no CVA tenderness Thoracic/Lumbar Spine: lumbar spinal tenderness and straight leg raise positive Skin Rashes: no rashes Extrem General: Yes no clubbing, cyanosis or edema Office Procedures Flu Questionnaire Does the patient have a severe egg allergy?: No Immunizations Fluarix Triv [id number] (PF) 45 mcg (15 mcg x 3)/0.5 mL IM syringe Performing Provider: Tye Mckoy MD [facility] Documented (not given) by: GANGA Joshi on 09/29/24 10:28 Reason Not Given: Patient Refused Coding Level of Care Code Est Pt Level 4 (72763) Diagnoses Left lower quadrant abdominal pain R10.32 Degeneration of intervertebral disc of lumbar region with discogenic back pain M51.360 Disc-related pain type: discogenic back pain only Mixed hyperlipidemia E78.2 Benign essential hypertension I10 Impaired fasting glucose R73.01 Arthralgia, unspecified joint M25.50 Joint pain location: unspecified Vitamin D deficiency E55.9 Benign prostatic hyperplasia without lower urinary tract symptoms N40.0 Complex renal cyst N28.1 Smoker F17.200 Overweight (BMI 25.0-29.9) E66.3 Assessment & Plan Assessment & Plan (1) Left lower quadrant abdominal pain: Code(s): R10.32 - Left lower quadrant pain Category: Medical Plan: He continues to complain of recurrent pain over his LLQ - thinks that this is primarily from a deep muscle injury over his left lower abdomen but states that Dr. Baxter seem to think this is related to his lower lumbar spine pathology and sent him for an MRI of the lumbar spine for further evaluation His lumbar spine MRI did show significant neural foraminal narrowing at L5-S1 on the left side, which may help explain his symptoms Will start him for now on some Tramadol 50 mg BID-TID PRN for severe pain He is advised to reach back out to Dr. Baxter' office to request for a follow up appointment with him RISSA to discuss his MRI findings and to see what Dr. Baxter would recommend now that we have all of the information that he needs (2) Lumbar degenerative disc disease: Comment: Lumbar spine MRI done back in November 2015 showed (+) multilevel degenerative lumbar spondylosis with a left lateral broad-based disc protrusion at L1-L2 Code(s): M51.36 - Other intervertebral disc degeneration, lumbar region Category: Medical Qualifiers: Disc-related pain type: discogenic back pain only Qualified Code(s): M51.360 - Other intervertebral disc degeneration, lumbar region with discogenic back pain only Plan: Patient states that his ongoing lower back symptoms have gotten worse over the year and was bothering him a lot over most of the past winter and this year Reports that he is also now experiencing some pain over his left thigh area He was finally able to get his lumbar spine MRI done early last month, which revealed (+) multilevel degenerative changes Reinforced activity and weight-lifting restrictions so as not to aggravate his low back pain Follow up with neurosurgery (Dr. Baxter) as scheduled (3) Mixed hyperlipidemia: Code(s): E78.2 - Mixed hyperlipidemia Category: Medical Plan: Patient did not get his follow up labs done prior to his appointment today He is advised/reminded that his cholesterol levels, especially his LDL cholesterol, was higher than previous on his labs done earlier this year Reinforced low cholesterol diet Continue Pravastatin 40 mg QD - states that he has been taking his cholesterol med daily / regularly for several months now Will have him recheck his labs and fasting lipids in 6 months for follow up (4) Benign essential hypertension: Code(s): I10 - Essential (primary) hypertension Category: Medical Plan: Reinforced low sodium diet - goal is systolic BP of at least 120 to 130 mm or less Continue Lisinopril 5 mg QD (5) Impaired fasting glucose: Code(s): R73.01 - Impaired fasting glucose Category: Medical Plan: His FBS was slightly elevated at 108 mg/dl back in February 2024 Reinforced low calorie/low carb diet Will recheck his FBS and HgbA1c in 6 months for follow up (6) Arthralgia: Code(s): M25.50 - Pain in unspecified joint Category: Medical Qualifiers: Joint pain location: unspecified Qualified Code(s): M25.50 - Pain in unspecified joint Plan: Involving multiple joints - these are most likely due to osteoarthritis Continue Celecoxib 100 mg BID PRN for joint pain (7) Vitamin D deficiency: Code(s): E55.9 - Vitamin D deficiency, unspecified Category: Medical Plan: His Vitamin D level was low on his labs done back in February 2024 Will start him on Vitamin D3 2000 units QD (8) Benign prostatic hyperplasia without lower urinary tract symptoms: Code(s): N40.0 - Benign prostatic hyperplasia without lower urinary tract symptoms Category: Medical Plan: States that his urinary symptoms have been mostly manageable An enlarged prostate gland was seen incidentally on his abdominal CT done back in November 2018 and also on his more recent CT done on 08/28/2024, with (+) moderate BPH and bilateral hydroceles mentioned on the CT report Continue Finasteride 5 mg QD and Tadalafil 5 mg QD Follow up with urology as scheduled (9) Complex renal cyst: Comment: Abdominal x-rays done in June 2020 revealed no interval changes in the complex exophytic cyst at the upper pole of the left kidney; there are also small bilateral simple renal cysts noted Code(s): N28.1 - Cyst of kidney, acquired Category: Medical Plan: Repeat abdominal and pelvic CT last done on 08/31/2021 revealed (+) continued stable appearance of a complex left renal cyst, with coarse central septal calcifications Previous abdominal CT done on 11/29/2018 showed a stable complex cyst in the upper pole of the left kidney measuring 2.6 x 3.2 cm with septal calcification. There are also some right renal cysts that appear stable His most recent CT on 08/28/2024 mentioned that the kidneys are normal in size, shape, and attenuation. No hydronephrosis, hydroureter, or calculi seen. Bilateral benign Bosniak class I and Bosniak class II renal cysts are noted which require no additional imaging or follow-up. No solid renal masses are seen. The Bosniak class II mass is at the left upper pole and has coarse calcifications associated with it. Calcifications have increased over time Follow up with urology as scheduled (10) Smoker: Code(s): F17.200 - Nicotine dependence, unspecified, uncomplicated Category: Social Hx Plan: Patient is counseled again on smoking cessation (11) Overweight (BMI 25.0-29.9): Code(s): E66.3 - Overweight Category: Medical Plan: Reinforced diet/exercise as tolerated/lose weight Plan Follow up in 6 months Orders: Orders Influenza [id number] Immunization Today Z23 - Encounter for immunization Comprehensive Koppel. Panel Fast 6 Months E78.00 - Pure hypercholesterolemia, unspecified Lipid Panel 6 Months E78.00 - Pure hypercholesterolemia, unspecified UA CC w/rflx Micro + Cult 6 Months R30.0 - Dysuria Complete Blood Count Auto Diff 6 Months D64.9 - Anemia, unspecified TSH reflex Free T4 6 Months E78.00 - Pure hypercholesterolemia, unspecified Vitamin D 25-OH Total 6 Months E55.9 - Vitamin D deficiency, unspecified Hemoglobin A1c 6 Months R73.01 - Impaired fasting glucose Medications: New tramadol Take as needed only for severe pain 50 mg PO TID PRN 30 tabs 0RF severe pain cholecalciferol (vitamin D3) 50 mcg PO DAILY 90 days 90 caps 3RF E55.9 - Vitamin D deficiency, unspecified
== END 2024-09-29 11:23 | disposition home or self-care (01) ==
LOC: HO.HMCH 10:11
PROVIDERS: PCP Internal Medicine; Visit Provider Internal Medicine
DX: R10.32 Left lower quadrant pain (principal); M51.360 Other intervertebral disc degeneration, lumbar region with discogenic back pain only; E78.2 Mixed hyperlipidemia; I10 Essential (primary) hypertension; R73.01 Impaired fasting glucose; M25.50 Pain in unspecified joint; E55.9 Vitamin D deficiency, unspecified; N40.0 Benign prostatic hyperplasia without lower urinary tract symptoms; N28.1 Cyst of kidney, acquired; F17.200 Nicotine dependence, unspecified, uncomplicated; E66.3 Overweight; Z23 Encounter for immunization

== ENCOUNTER → 2024-09-29 10:11 | Outpatient (BNVA) | payer MEDICARE, OTHER, SELFPAY | PROVIDERS: PCP Internal Medicine; Visit Provider Internal Medicine | DX: R10.32 Left lower quadrant pain (principal); M51.360 Other intervertebral disc degeneration, lumbar region with discogenic back pain only; E78.2 Mixed hyperlipidemia; I10 Essential (primary) hypertension; R73.01 Impaired fasting glucose; M25.50 Pain in unspecified joint; E55.9 Vitamin D deficiency, unspecified; N40.0 Benign prostatic hyperplasia without lower urinary tract symptoms; N28.1 Cyst of kidney, acquired; E66.3 Overweight; F17.200 Nicotine dependence, unspecified, uncomplicated; Z71.6 Tobacco abuse counseling | CPT/HCPCS: 90471; 96127; 99212 ==

== ENCOUNTER 2024-10-01 15:01 | Outpatient (AMB) | payer MEDICARE, OTHER, SELFPAY ==
--- NOTE | 2024-10-01 15:05 | A.SPINEOV_ITS ---
Intake Visit Reasons: MRI follow up Intake Note: Mr. Angulo is here to F/u on his MRI results. 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 As you know, he suffering from severe radiculopathy in an L1 dermatome on the left side not responding to any form of pain medications it was tramadol anti- inflammatory drugs, physical therapy or an injection. The pain has been going on for more than 2 months in his unbearable. The pain follows exactly the L1 dermatome. He stands in an antalgic gait. The repeat MRI still shows the disc herniation compressing on the left L1 nerve root. I offered him a microdiskectomy T12-L1 to remove the left-sided disc herniation. He is scheduled for 11/06/2024. I spent 20 minutes in his consult to review imaging and to discuss plan of care. Thank you for allowing me take care of your patient. Ehsan Baxter MD, PhD Spine Fellowship Trained Neurosurgeon Director, [facility] Coding Level of Care Code Est Pt Level 3 (69811) Diagnoses Lumbosacral radiculopathy at L1 M54.17
== END 2024-10-01 15:15 | disposition home or self-care (01) ==
LOC: HO.HNS 15:02
PROVIDERS: PCP Internal Medicine; Visit Provider Neurological Surgery
DX: M54.17 Radiculopathy, lumbosacral region (principal)
CPT/HCPCS: 99213

== ENCOUNTER → 2024-10-01 15:01 | Outpatient (BNVA) | payer MEDICARE, OTHER, SELFPAY | PROVIDERS: PCP Internal Medicine; Visit Provider Neurological Surgery | DX: M54.17 Radiculopathy, lumbosacral region (principal) | CPT/HCPCS: 99212 ==

== ENCOUNTER 2024-10-21 13:17 | Outpatient (REF) | payer MEDICARE, OTHER, SELFPAY ==
[2024-10-21 13:58] LABS: MANUAL DIFF FLAG NO
[2024-10-21 15:13] LABS: Basophils Absolute Auto 0.1 X10*3/uL (0.0-0.2); Basophils Percent Auto 0.4 % (0-2); Eosinophils Absolute Auto 0.2 X10*3/uL (0.0-0.4); Eosinophils Percent Auto 1.5 % (0-4); Hematocrit 41.4 % (42.0-52.0); Hemoglobin 14.5 g/dl (14.0-18.0); Imm Gran Abs Auto 0.05 X10*3/uL (0.00-0.03); Imm Gran Pct Auto 0.4 % (0.0-0.4); Lymphocytes Absolute Auto 2.8 X10*3/uL (1.2-4.9); Lymphocytes Percent Auto 24.2 % (20-40); Mean Corpuscular Volume 94.3 fL (80.0-98.0); Mean Platelet Volume 10.3 fL (9.4-12.4); Monocytes Absolute Auto 0.9 X10*3/uL (0.1-1.2); Monocytes Percent Auto 7.9 % (2-11); Neutrophils Absolute Auto 7.5 x10*3/uL (2.0-8.3); Neutrophils Percent Auto 65.6 % (45-73); Platelet Count 364 X10*3/uL (160-400); Red Blood Count 4.39 X10*6/uL (4.60-5.80); Red Cell Distribution Width 12.8 % (11.0-16.0); White Blood Count 11.5 X10*3/uL (4.8-10.8)
[2024-10-21 15:17] LABS: Appearance Urine Clear; Color Urine Yellow; Glucose Urine UA Negative (Negative); Leukocyte Esterase Urine Negative (Negative); Nitrite Urine Negative (Negative); Urine Blood Negative (Negative); Urine Ketones Negative (Negative); Urine Protein Negative (Neg-Trace)
[2024-10-21 15:31] LABS: Estimated Average Glucose 111 mg/dL; Hemoglobin A1C 136.8034 umol/L; Hemoglobin A1c % 5.5 % (<6.0); Total Hemoglobin (HGBA1C) 3694.7959 umol/L
[2024-10-21 16:04] LABS: Alanine Aminotransferase 25 U/L (0-40); Albumin Level 4.6 g/dL (3.5-5.0); Alkaline Phosphatase 66 U/L (39-117); Anion Gap 15 (12-20); Aspartate Amino Transferase 20 U/L (5-37); Bilirubin Total 0.5 mg/dL (0.0-1.0); Blood Urea Nitrogen 19 mg/dL (9-16); Calcium 9.6 mg/dL (8.4-10.2); Carbon Dioxide 22 mmol/L (22-29); Chloride 105 mmol/L (96-108); Cholesterol 193 mg/dL (<200); Estimated Glomerular Filt Rate > 60; Glucose Fasting 109 mg/dL (60-99); HDL Cholesterol 47 mg/dL (>40); LDL Cholesterol Calculated 118 mg/dL (<100); Potassium 3.7 mmol/L (3.3-5.1); Sodium 138 mmol/L (135-145); Total Protein 7.5 g/dL (6.5-8.0); Triglycerides 141 mg/dL (<150)
[2024-10-21 16:12] LABS: Vitamin D 25-OH Total 39.4 ng/mL (>30)
[2024-10-21 16:44] LABS: Free T4 (Free Thyroxine) 0.89 ng/dL (0.71-1.85)
== END 2024-10-21 13:18 | disposition home or self-care (01) ==
LOC: HO.LAB 13:17
PROVIDERS: PCP Internal Medicine; Visit Provider Internal Medicine
DX: Z00.00 Encounter for general adult medical examination without abnormal findings (principal); M54.50 Low back pain, unspecified; D64.9 Anemia, unspecified; E78.00 Pure hypercholesterolemia, unspecified; E55.9 Vitamin D deficiency, unspecified; R30.0 Dysuria; R73.01 Impaired fasting glucose
CPT/HCPCS: 36415; 80053; 80061; 81003; 82306; 83036; 84439; 84443; 85025

== ENCOUNTER → 2024-10-22 10:52 | Outpatient (BNV) | payer MEDICARE, OTHER, SELFPAY | PROVIDERS: PCP Internal Medicine; Visit Provider Internal Medicine | DX: I10 Essential (primary) hypertension (principal); M54.17 Radiculopathy, lumbosacral region | CPT/HCPCS: 93010 ==

== ENCOUNTER 2024-11-06 05:48 | Day surgery (SDC) | payer MEDICARE, OTHER, SELFPAY ==
--- NOTE | 2024-10-22 | ECG_ITS ---
Test Reason : pre op Blood Pressure : / mmHG Vent. Rate : 062 BPM Atrial Rate : 062 BPM P-R Int : 170 ms QRS Dur : 090 ms QT Int : 406 ms P-R-T Axes : 065 031 052 degrees QTc Int : 412 ms Normal sinus rhythm Normal ECG No previous ECGs available Referred By: Elly Masters Electronically Signed By:NADIA SANCHEZ
[2024-10-22 10:20] VITALS: BMI 28.3
[2024-10-22 10:26] VITALS: BP 178/90; PULSE 62; RESP 20; O2SAT 98
--- NOTE | 2024-10-22 10:32 | P.CONAN_ITS ---
Documented by User: Elly Masters NP 10/27/24 14:44 HPI - Anesthesia Eval Consult details Narrative: 69yo M for Left T12-L1 microlumbar Discectomy, 11/06/24 No recent illness No CP/SOB with minimal activity r/t pain. Prior to 3 months of back pain, no issues with sailing/swimming BP up at PAT but wnl at routine PCP visit 09/2024 [facility] Active Problems Active Problems: All Active Problems Left lower quadrant abdominal pain (Acute) Lumbosacral radiculopathy at L1 (Acute) Arthralgia (Acute) Sessile colonic polyp (Acute) Chronic radicular lumbar pain (Acute) Fatigue (Acute) Abdominal pain (Acute) Hemorrhoids (Acute) History of adenomatous polyp of colon (Acute) Erectile dysfunction (Acute) Impaired fasting glucose (Acute) Colon cancer screening (Acute) Left inguinal pain (Acute) LLQ abdominal pain (Acute) Complex renal cyst (Acute) Annual physical exam (Acute) Overweight (BMI 25.0-29.9) (Acute) Vitamin D deficiency (Acute) Diverticulosis of colon (Acute) Obesity (BMI 30-39.9) (Acute) Hematuria (Acute) Irritable bowel syndrome (IBS) (Acute) Smoker (Acute) Renal cyst (Acute) Benign prostatic hyperplasia without lower urinary tract symptoms (Acute) Lumbar degenerative disc disease (Acute) Benign essential hypertension (Acute) Mixed hyperlipidemia (Acute) Past Medical History Medical History Chronic renal insufficiency Vitamin D deficiency Obesity (BMI 30-39.9) Diverticulosis of colon Irritable bowel syndrome (IBS) Smoker Renal cyst Benign prostatic hyperplasia without lower urinary tract symptoms Lumbar degenerative disc disease Benign essential hypertension Mixed hyperlipidemia Family History Family History Father Myocardial infarction CVD (cardiovascular disease) Mother Diabetes Head injury Sister Stroke Maternal Grandmother Diabetes Paternal Grandfather Myocardial infarction Paternal Uncle Myocardial infarction Brother No problems noted. Sister No problems noted. Family history of problems with anesthesia: No Surgical History Surgical History History of colonoscopy with polypectomy History of hemorrhoidectomy History of lumbar surgery History of hernia repair History of Problems with Anesthesia: No Social History Social History Housing: Apartment Housing Other:: 3rd floor-family members live on other two floors of 3 family house Are you a primary dog day care attendant to a significant other at home: No Do you presently have visiting nurse or other home services: No Alcohol intake: current Alcohol intake frequency: holidays/special occasions only Patient Tobacco Use Status: Current everyday Tobacco user Tobacco use type: Cigarette Cigarette Packs Per Day: 0.5 Cigarettes Per Day: 6 Years Smoked: 40 e-Cigarette/Vaping Use: Never Used Second Hand Smoke Exposure: Yes Use of substances other than those prescribed or required for medical reasons: Yes Substance Use Type Other:: smokes & edibles Have you been hit, kicked, punched, or otherwise hurt by someone within the past year? If so, by whom?: No Spiritual Healthcare Practices: none Episcopal Healthcare Practices: none Cultural Healthcare Practices: none Are you DNR?: No Advance Directives: No (states son is primary contact) Advance Directives Information Provided: Yes (as above noted) Advance Directives on File: No Recently lost weight without trying: No Eating poorly because of decreased appetite: No Nutrition Risks: No Nutritional Risk Poor oral hygiene: Yes (extracted teeth-no loose teeth) service: No Current occupational status: retired Cognitive needs: No Hearing needs: No Vision needs: Yes (reading glasses) Meds Allergies Allergy/AdvReac Type Severity Reaction Status Date / Time amoxicillin Allergy Intermediate stomach Verified 11/06/24 06:25 upset, nausea, hives Home Medications ?Medication ?Instructions ?Recorded ?Confirmed ?Last Taken ?Type ascorbate calcium (vitamin C) 500 500 mg PO BEDTIME 08/29/22 10/22/24 Unknown History mg tablet vitamin B complex 1 tab PO BEDTIME 10/21/24 10/22/24 Unknown History cholecalciferol (vitamin D3) 50 50 mcg PO BEDTIME 10/22/24 10/22/24 Unknown History mcg (2,000 unit) capsule finasteride 5 mg tablet 5 mg PO BEDTIME 10/22/24 10/22/24 Unknown History ibuprofen 200 mg tablet 400 mg PO DAILY 10/22/24 10/22/24 Unknown History lisinopril 5 mg tablet 5 mg PO BEDTIME 10/22/24 10/22/24 Unknown History pravastatin 40 mg tablet 40 mg PO BEDTIME 10/22/24 10/22/24 Unknown History tadalafil 5 mg tablet 5 mg PO BEDTIME sexual activity 10/22/24 10/22/24 Unknown History Exam Height,Weight and Vital Signs: Height 5 ft 8 in Weight 84.368 kg Last Vital Signs Pulse 62 10/22/24 10:26 Resp 20 10/22/24 10:26 BP 178/90 H 10/22/24 10:26 Pulse Ox 98 10/22/24 10:26 O2 Del Method Room Air 10/22/24 10:26 Pertinent Lab Results Pertinent Lab Results: Laboratory Tests 10/21/24 13:56 WBC 11.5 H Hgb 14.5 Hct 41.4 L Plt Count 364 Sodium 138 Potassium 3.7 Chloride 105 Carbon Dioxide 22 BUN 19 H Creatinine 0.79 Narrative Narrative: EKG 09/2024 Vent. Rate : 062 BPM Atrial Rate : 062 BPM P-R Int : 170 ms QRS Dur : 090 ms QT Int : 406 ms P-R-T Axes : 065 031 052 degrees QTc Int : 412 ms Normal sinus rhythm Normal ECG No previous ECGs available Airway Mallampati Class: III TM Dist: >3cm Neck ROM: Full Loose/Missing/Broken Teeth: Yes (missing and broken throughout. Denies loose) Heart: RRR Lungs: CTAB Assessment and Plan Assessment Anesthesia Assessment: Anesthesia Plan Discussed, Smoking Cess. Discussed and PAT Visit Final Anesthetic Review Family History of Problems with Anesthesia: No History of Problems with Anesthesia: No Documented by User: Amy Rondon MD 11/06/24 07:31 [facility] Past Medical History Medical History Chronic renal insufficiency Vitamin D deficiency Obesity (BMI 30-39.9) Diverticulosis of colon Irritable bowel syndrome (IBS) Smoker Renal cyst Benign prostatic hyperplasia without lower urinary tract symptoms Lumbar degenerative disc disease Benign essential hypertension Mixed hyperlipidemia Family History Family History Father Myocardial infarction CVD (cardiovascular disease) Mother Diabetes Head injury Sister Stroke Maternal Grandmother Diabetes Paternal Grandfather Myocardial infarction Paternal Uncle Myocardial infarction Brother No problems noted. Sister No problems noted. Surgical History Surgical History History of colonoscopy with polypectomy History of hemorrhoidectomy History of lumbar surgery History of hernia repair Social History Social History Housing: Apartment Housing Other:: 3rd floor-family members live on other two floors of 3 family house Are you a primary dog day care attendant to a significant other at home: No Do you presently have visiting nurse or other home services: No Alcohol intake: current Alcohol intake frequency: holidays/special occasions only Patient Tobacco Use Status: Current everyday Tobacco user Tobacco use type: Cigarette Cigarette Packs Per Day: 0.5 Cigarettes Per Day: 6 Years Smoked: 40 e-Cigarette/Vaping Use: Never Used Second Hand Smoke Exposure: Yes Use of substances other than those prescribed or required for medical reasons: Yes Substance Use Type Other:: smokes & edibles Have you been hit, kicked, punched, or otherwise hurt by someone within the past year? If so, by whom?: No Spiritual Healthcare Practices: none Episcopal Healthcare Practices: none Cultural Healthcare Practices: none Are you DNR?: No Advance Directives: No (states son is primary contact) Advance Directives Information Provided: Yes (as above noted) Advance Directives on File: No Recently lost weight without trying: No Eating poorly because of decreased appetite: No Nutrition Risks: No Nutritional Risk Poor oral hygiene: Yes (extracted teeth-no loose teeth) service: No Current occupational status: retired Cognitive needs: No Hearing needs: No Vision needs: Yes (reading glasses) Meds Allergies Allergy/AdvReac Type Severity Reaction Status Date / Time amoxicillin Allergy Intermediate stomach Verified 11/06/24 06:25 upset, nausea, hives Home Medications ?Medication ?Instructions ?Recorded ?Confirmed ?Last Taken ?Type ascorbate calcium (vitamin C) 500 500 mg PO BEDTIME 08/29/22 10/22/24 Unknown History mg tablet vitamin B complex 1 tab PO BEDTIME 10/21/24 10/22/24 Unknown History cholecalciferol (vitamin D3) 50 50 mcg PO BEDTIME 10/22/24 10/22/24 Unknown History mcg (2,000 unit) capsule finasteride 5 mg tablet 5 mg PO BEDTIME 10/22/24 10/22/24 Unknown History ibuprofen 200 mg tablet 400 mg PO DAILY 10/22/24 10/22/24 Unknown History lisinopril 5 mg tablet 5 mg PO BEDTIME 10/22/24 10/22/24 Unknown History pravastatin 40 mg tablet 40 mg PO BEDTIME 10/22/24 10/22/24 Unknown History tadalafil 5 mg tablet 5 mg PO BEDTIME sexual activity 10/22/24 10/22/24 Unknown History Assessment and Plan Final Anesthetic Review NPO: Yes ASA Class: III Final Preanesthetic Review: No Changes in Pt Med Stat, Meds/Allgs Chart Reviewed, Consent Obtained/Reviewed and Anes Risks/Benef Reviewed Patient Risk: Intermediate Procedure Risk: Intermediate Anesthetic Plan Anesthetic Plan: GA Disposition: Standard PACU
[2024-11-06 06:23] VITALS: BMI 27.8
[2024-11-06] MEDS: Lactated Ringers 1,000 ML 100 ML IVCONT (06:31)
[2024-11-06 06:46] VITALS: BP 160/82; PULSE 87; RESP 18; TEMP 36.6; O2SAT 98
--- NOTE | 2024-11-06 07:01 | MHC.SHP ---
Pre-Procedural Eval Section A - 24 Hr Update-Section A only Date of Service: 11/06/24 The patient is an INPATIENT: No Changes since office visit: No Cold of Flu in the past 2 weeks, No New Medical Problems, No Changes in Medication and No Patient answered all questions The patient has been examined within 24 hours of the surgical procedure. The History & Physical has been completed within 30 days and I have reviewed it.: No Section B - Complete if H&P > 30 days Chief Complaint: Radiculopathy, lumbosacral region Allergies: Allergies Allergy/AdvReac Type Severity Reaction Status Date / Time amoxicillin Allergy Intermediate stomach Verified 11/06/24 06:25 upset, nausea, hives Review of Systems Sugical H&P ROS: Negative: Constitution, Cardiovascular, Respiratory, Neurological, Psychiatric, Hem-Onc, Allergic/Immunologic, Gastrointestinal, Genitourinary, Musculoskeletal, Integumentary, Endocrine and Eyes/Ears/Nose/Throat Exam Surgical H&P Exam: Normal: HEENT, Normal: Heart, Normal: Lungs, Normal: Extremities, Normal: Abdomen, Normal: Skin and Normal: Neurological (awake, alert,oriented x 3 ) Plan Diagnosis/Plan: Unchanged left T12-L1 microdiskectomy Time Spent With Patient Time: Total time managing care of this patient today __6__ minutes.
[2024-11-06] MEDS: vancomycin HCL 1,500 MG in 0.9 % Sodium Chloride 500 ML 333.33 MG IV (07:02)
--- NOTE | 2024-11-06 07:02 | P.DS_ITS ---
DS: Providers Provider Date of Service: 11/06/24 Date of discharge: 11/06/24 Primary care physician: Tye Mckoy MD Admitting clinician: Ehsan Baxter DS: Diagnosis Discharge Diagnosis (1) Lumbosacral radiculopathy at L1: Status: Acute DS: Summary Time Attestation Discharge Coordination Time (in mins): 5 Quality: Safe Use of Opioids Does Pt have an Active Cancer Diagnosis on the Problem List?: No Quality: Stroke Does the patient have a stroke diagnosis?: No Physical Exam Vital Signs: Vital Signs: Last Vital Signs Temp 97.9 F 11/06/24 06:46 Pulse 87 11/06/24 06:46 Resp 18 11/06/24 06:46 BP 160/82 H 11/06/24 06:46 Pulse Ox 98 11/06/24 06:46 O2 Del Method Room Air 11/06/24 06:46 BMI result Body Mass Index 27.8 Discharge Plan Discharge Patient Disposition: Home, Self-Care Referrals: Tye Mckoy MD [Primary Care Provider] - 1 Week Discharge Medications: New docusate sodium [Colace] 100 mg capsule 100 mg PO BID Qty: 20 0RF oxycodone 5 mg tablet 5 mg PO Q4H PRN (Reason: pain) Qty: 20 0RF Rx Instructions: Partial Fill upon patient request. Continued vitamin B complex Tablet Extended Release 1 tab PO BEDTIME pravastatin 40 mg tablet 40 mg PO BEDTIME lisinopril 5 mg tablet 5 mg PO BEDTIME finasteride 5 mg tablet 5 mg PO BEDTIME tadalafil 5 mg tablet 5 mg PO BEDTIME Rx Instructions: take daily [id number] [facility] [id number] Member [id number] [facility] [id number] Member [id number] cholecalciferol (vitamin D3) 50 mcg (2,000 unit) capsule 50 mcg PO BEDTIME ibuprofen 200 mg Tablet 400 mg PO DAILY ascorbate calcium (vitamin C) 500 mg tablet 500 mg PO BEDTIME tramadol 50 mg tablet 50 mg PO TID PRN (Reason: severe pain) Qty: 30 0RF Rx Instructions: Take as needed only for severe pain Discharge Orders: Discharge Order (Routine); Ordered 11/06/24 Ordered By: Greg Carlisle Diet: Advance to usual diet Activity on Discharge: As tolerated Activity Restrictions/Additional Instructions: After your spinal surgery we ask you to observe the following restrictions/guidelines: Activity: It is normal to feel some discomfort as you increase your activity, but that will improve with time. We ask you avoid heavy lifting or acitivities that cause pain. As a general rule, 8lbs is a safe limit for lifting right after surgery. Walk as much as you feel comfortable but not to exhaustion. You will feel extra tired the first few days after surgery. Stay well hydrated. It is OK to walk up and down stairs You may return to driving when you are off narcotics (such as vicodin, oxycodone, dilaudid, etc), and you are back to normal functional capacity. If you have any concerns please check with office before driving. Return to work is specific to each patient and each surgery, so please speak with your doctor/PA at first follow up. Please bring paperwork such as FMLA at that time if you need it filled out. Medications: For optimum pain control, it is best to start with a combination of 500 mg of Tylenol every 4 hours with 600 mg of Motrin every 8 hours, and use narcotics as needed in between for breakthrough pain. We will give you a short supply of narcotics after surgery (usually one weeks worth). If you need more please call the office but do not use more than prescribed. You will need to give our office 48 hours notice if you need narcotics refilled and we do not fill narcotics on weekends or evenings. If you are on a narcotic, it is a good idea to take a stool softener such as colace or senna to avoid constipation If you take blood thinner such as aspirin, Plavix, Coumadin, Effient, Eliquis e tc for conditions such as Afib, DVT, Pulmonary embolus, coronary disease, stents etc please speak with your surgeon about specific details as to when you can resume these medications. You can resume NSAIDs on post op day 1 (eg: Motrin, Naproxen, etc). Follow up: Please call the office, , after surgery to arrange a 3 week follow up for wound check. Wound Care: You may remove your dressing on the first day after surgery. ?You may ?leave open to air. Please do not remove the steri strips underneath. they will fall off on their own in one week. IT IS NORMAL FOR THE WOUND TO OOZE OR BE BLOODY FOR A FEW DAYS AFTER SURGERY. ?IF THIS HAPPENS JUST PLACE NEW DRESSING OVER IT TO AVOID STAINING CLOTHES. You may shower on post op day # 1 We ask that you do not let the water soak the wound. If it does get wet, just towel dry lightly. Please do not scrub your incision or place any type of chemical/ointment on the wound. No tub baths, pools or jacuzzis for one month. If you have any leaking or redness from your wound, or fevers, please call office Print Language: Telugu
[2024-11-06] MEDS: methocarbamoL 750 MG TABLET PO (07:06)
[2024-11-06] MEDS: Gabapentin 300 MG CAPSULE PO (07:06)
--- NOTE | 2024-11-06 08:43 | W.PM.OPN ---
Operative Note Operative Note Date of Service: 11/06/24 Narrative: Preoperative diagnosis: Left elbow radiculopathy due to disc herniation Postoperative diagnosis: Same Procedure: Left T12-L1 microdiskectomy with microscope Surgeon: Ehsan Baxter MD, PhD Labor Standards Director: gurjit Ureña This patient is suffering from radiating pain from his back into the groin area. MRI shows a disc herniation T12-L1 on the left side. This morning he states that the symptoms have improved but not to a level that he would cancel the surgery. Therefore the patient was offered a lumbar microdiskectomy to decompress the nerve root. The procedure complications were explained. The patient was consented. The patient was brought to the operating room and endotracheally intubated. The patient was turned in a prone position on the Anibal frame. Prepping and draping was done followed by time-out. A mid lumbar incision was made followed by release of the paravertebral muscles on the left side to expose the T12-L1 interspace. Multiple intraoperative x-rays obtained to confirm the correct level. The microscope was brought in. A T12 laminotomy was done followed by opening of the flavum ligament to expose the underlying dura. Another intraoperative x-rays obtained with an instrument at the T12-L1 disc space. I extended the laminotomy including a partial facetectomy and then explored the area for the herniated disc, which I was not able to find. The nerve root was identified and no significant compression was noted. A nerve hook could be easily passed under the thecal sac without resistance. I decided not to further pursue the exploration is no disc herniation was found. Hemostasis was done. The microscope was removed. Marcaine was injected intramuscularly.The incision was closed in two layers. Steri-Strips used to approximate the incision. An op-site were taken there was used to cover the incision. All sponge and needle counts were correct. Patient was extubated and transported in stable condition to recovery room. this procedure was done with the aid of a physician press operator assistant who performed the initial exposure until the microscope was brought in and performed the closure of the incision. Anesthesia: General Blood loss: 25 mL Complications: None Specimen: None Surgical time: 45 minutes Disposition: Discharge home
[2024-11-06 09:00] VITALS: BP 93/50; PULSE 80; RESP 12; TEMP 36.1; O2SAT 97
[2024-11-06 09:05] VITALS: BP 90/65; PULSE 81; RESP 14; O2SAT 99
[2024-11-06 09:10] VITALS: BP 94/60; PULSE 73; RESP 16; O2SAT 98
[2024-11-06 09:15] VITALS: BP 107/62; PULSE 79; RESP 16; TEMP 36.4; O2SAT 97
[2024-11-06 09:30] VITALS: BP 126/79; PULSE 75; RESP 16; TEMP 36.1; O2SAT 97
[2024-11-06] MEDS: oxyCODONE HCl Immed Release 5 MG TABLET PO (09:48)
== END 2024-11-06 10:17 | disposition home or self-care (01) ==
PROVIDERS: PCP Internal Medicine; Visit Provider Neurological Surgery
PROC: (CPT 63030; principal; 2024-11-06 07:30)
DX: M54.17 Radiculopathy, lumbosacral region (principal); M51.369 Other intervertebral disc degeneration, lumbar region without mention of lumbar back pain or lower extremity pain; R26.89 Other abnormalities of gait and mobility; E78.2 Mixed hyperlipidemia; I12.9 Hypertensive chronic kidney disease with stage 1 through stage 4 chronic kidney disease, or unspecified chronic kidney disease; F17.210 Nicotine dependence, cigarettes, uncomplicated; N18.9 Chronic kidney disease, unspecified; Z79.1 Long term (current) use of non-steroidal anti-inflammatories (NSAID); Z79.899 Other long term (current) drug therapy; Z88.1 Allergy status to other antibiotic agents; Z98.890 Other specified postprocedural states
CPT/HCPCS: 63030; 93005; J0131; J1100; J1885; J2003; J2250; J2405; J2704; J3010; J3371

== ENCOUNTER → 2024-11-06 05:48 | Outpatient (BNV) | payer MEDICARE, OTHER, SELFPAY | PROVIDERS: PCP Internal Medicine; Visit Provider Neurological Surgery | DX: M54.17 Radiculopathy, lumbosacral region (principal) | CPT/HCPCS: 63030; 99499 ==

== ENCOUNTER 2024-11-28 09:44 | Outpatient (AMB) | payer MEDICARE, OTHER, SELFPAY ==
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
== END 2024-11-28 10:52 | disposition home or self-care (01) ==
PROVIDERS: PCP Internal Medicine; Visit Provider Physician Assistant
DX: R10.32 Left lower quadrant pain (principal)
CPT/HCPCS: 99024

== ENCOUNTER → 2024-11-28 09:44 | Outpatient (BNVA) | payer MEDICARE, OTHER, SELFPAY | PROVIDERS: PCP Internal Medicine; Visit Provider Physician Assistant | DX: R10.32 Left lower quadrant pain (principal) | CPT/HCPCS: 99212 ==

== ENCOUNTER 2025-02-20 14:55 | Outpatient (REF) | payer MEDICARE, OTHER, SELFPAY ==
[2025-02-20 17:22] LABS: Prostate Specific Antigen 1.48 ng/mL (<0.05-4.0)
== END 2025-02-20 14:56 | disposition home or self-care (01) ==
LOC: HO.HMGCLDS 14:55
PROVIDERS: PCP Internal Medicine; Visit Provider Urology
DX: N40.0 Benign prostatic hyperplasia without lower urinary tract symptoms (principal); Z12.5 Encounter for screening for malignant neoplasm of prostate
CPT/HCPCS: 36415; 84153

== ENCOUNTER 2025-02-27 11:42 | Outpatient (AMB) | payer MEDICARE, OTHER, SELFPAY ==
--- NOTE | 2025-02-27 11:43 | MHC.OFFVIS ---
Intake Visit Reasons: 6m/PSA Intake Note: Patient is present for 6M/PSA Urology Medication:FINASTERIDE,TADALAFIL Antibiotic Allergy:AMOXICILLIN Blood Thinner:NONE Vegetable Picker Required: No Allergies amoxicillin Allergy (Intermediate, Verified 02/27/25 11:44) stomach upset, nausea, hives HPI Comments Details: Dale is a very pleasant male. He is a patient of Dr. Mckoy. He is seen for the following urologic conditions - complex renal cyst - inguinal pain - erectile dysfunction Telemedicine Evaluation 15 min Consultation Withings [place] Video Six-month follow-up Finasteride has led to drop in PSA consistent with size reduction Low-dose daily tadalafil Good effect - bladder and erections Main issue is left flank pain which is secondary to prior surgery 6m f/u office PSA Erectile dysfunction Progressive Trouble maintaining erection Positive effect with daily tadalafil Complex renal cyst Followed over number of years Imaging - 09/15 CT scan 3.6 cm renal cyst right side, 2.5 cm complex cyst left side with calcification basically unchanged compared to prior imaging MRI and ultrasound - 08/17 renal ultrasound right-sided 3.6 cm cyst, left side complex cyst with calcification Lower urinary tract symptoms Mild in occasional nocturia Does not reach level of bother PSA - 04/14 3.0, 08/17 2.9, 02/17 1.5 Left inguinal disruption Prior radiating pain left inguinal area up flank On exam has marked tenderness at lateral aspect of left inguinal canal and medial aspect of right inguinal canal Previously has responded to anti-inflammatories Pain predominantly from left side Known degenerative disc disease Prior Celebrex [facility] Medical History Chronic renal insufficiency Vitamin D deficiency Obesity (BMI 30-39.9) Diverticulosis of colon Irritable bowel syndrome (IBS) Smoker Renal cyst Benign prostatic hyperplasia without lower urinary tract symptoms Lumbar degenerative disc disease Benign essential hypertension Mixed hyperlipidemia Surgical History History of colonoscopy with polypectomy History of hemorrhoidectomy History of lumbar surgery History of hernia repair Family History Father Myocardial infarction CVD (cardiovascular disease) Mother Diabetes Head injury Sister Stroke Maternal Grandmother Diabetes Paternal Grandfather Myocardial infarction Paternal Uncle Myocardial infarction Brother No problems noted. Sister No problems noted. Social History Housing: Apartment Housing Other:: 3rd floor-family members live on other two floors of 3 family house Are you a primary child care development specialist to a significant other at home: No Do you presently have visiting nurse or other home services: No Alcohol intake: current Alcohol intake frequency: holidays/special occasions only Comment: medicated prior to discharge debo Patient Tobacco Use Status: Current everyday Tobacco user Tobacco use type: Cigarette Cigarette Packs Per Day: 0.5 Cigarettes Per Day: 6 Years Smoked: 40 e-Cigarette/Vaping Use: Never Used Second Hand Smoke Exposure: Yes service: No Current occupational status: retired Cognitive needs: No Hearing needs: No Vision needs: Yes (reading glasses) Review of Systems Const All systems reviewed & are unremarkable except as noted in HPI and below Reports no additional complaints Resp Reports no additional complaints GI Reports no additional complaints Reports as per HPI Musc Reports no additional complaints Physical Exam Telemedicine evaluation Appropriate responses Regular breathing rate and rhythm HEENT Head: Yes normal to inspection Ears: hearing grossly normal bilaterally Eyes General: appearance normal, both eyes and all related structures Neck Neck: Yes normal visual inspection Chest Chest palpation & inspection: normal inspection of the chest Resp Effort & Inspection: normal respiratory effort and able to speak in complete sentences Telehealth Telehealth Telehealth Platform: [facility] Location of provider rendering services: practice address Location of patient: address on file Patient Identification confirmed using: Name, : Yes Telehealth method: video Patient verbally consented to treatment: Yes Patient verbally consented to billing insurance company: Yes Patient informed of any privacy concerns related to visit: Yes Minutes spent on Phone/Video with Pt.: 15 Assessment & Plan Assessment & Plan (1) Benign prostatic hyperplasia without lower urinary tract symptoms: Code(s): N40.0 - Benign prostatic hyperplasia without lower urinary tract symptoms Category: Medical (2) Erectile dysfunction: Code(s): N52.9 - Male erectile dysfunction, unspecified Category: Medical Qualifiers: Erectile dysfunction type: vasculogenic Vasculogenic erectile dysfunction type: due to arterial insufficiency Qualified Code(s): N52.01 - Erectile dysfunction due to arterial insufficiency Plan Six-month follow-up Medications: Changed From tadalafil take daily [id number] [facility] [id number] Member [id number] [facility] [id number] Member [id number] 5 mg PO BEDTIME sexual activity To tadalafil 5 mg PO BEDTIME 90 days 90 tabs 1RF sexual activity From finasteride 5 mg PO BEDTIME To finasteride 5 mg PO BEDTIME 90 days 90 tabs 1RF Patient Instructions: This note is constructed using voice recognition software. While every effort has been made to ensure accuracy shoulder sawyer errors may have been included. Imaging studies, laboratory and physical exam results were discussed and reviewed in detail. No major barriers to patient understanding were identified. An opportunity to ask questions regarding the treatment plan was provided. All questions were answered. The patient expressed understanding and agreement with the above treatment plan. The patient is aware they should contact our office by phone for worsening of their current condition or the appearance of new urologic symptoms. Compliance is encouraged with any medications and followup testing that is ordered. It is a privilege to participate in the urologic care of your patient. If you have any questions or concerns regarding treatment for the above conditions, or other urologic issues, please do not hesitate to contact me. The office telephone contact is [phone]. Sincerely, Dr Rome Leong MD, [facility] - Urology Compassionate Specialist Care for the Genitourinary System Coding Level of Care Code Tele Est Pt Level 3 (89630) Diagnoses Benign prostatic hyperplasia without lower urinary tract symptoms N40.0 Erectile dysfunction due to arterial insufficiency N52.01 Erectile dysfunction type: vasculogenic Vasculogenic erectile dysfunction type: due to arterial insufficiency
== END 2025-02-27 12:11 | disposition home or self-care (01) ==
LOC: HO.HUSH 11:42
PROVIDERS: PCP Internal Medicine; Visit Provider Urology
DX: N40.0 Benign prostatic hyperplasia without lower urinary tract symptoms (principal); N52.01 Erectile dysfunction due to arterial insufficiency
CPT/HCPCS: 99213

== ENCOUNTER 2025-03-23 13:33 | Outpatient (REF) | payer MEDICARE, OTHER, SELFPAY ==
[2025-03-23 16:09] LABS: MANUAL DIFF FLAG NO
[2025-03-23 16:10] LABS: Appearance Urine Clear; Color Urine Yellow; Glucose Urine UA Negative (Negative); Leukocyte Esterase Urine Negative (Negative); Nitrite Urine Negative (Negative); Urine Blood Negative (Negative); Urine Ketones Negative (Negative); Urine Protein Negative (Neg-Trace)
[2025-03-23 16:19] LABS: Estimated Average Glucose 111 mg/dL; Hemoglobin A1c % 5.5 % (<6.0)
[2025-03-23 16:20] LABS: Basophils Absolute Auto 0.1 X10*3/uL (0.0-0.2); Basophils Percent Auto 0.6 % (0-2); Eosinophils Absolute Auto 0.1 X10*3/uL (0.0-0.4); Eosinophils Percent Auto 1.6 % (0-4); Hematocrit 41.7 % (42.0-52.0); Hemoglobin 14.4 g/dl (14.0-18.0); Imm Gran Abs Auto 0.08 X10*3/uL (0.00-0.03); Lymphocytes Absolute Auto 2.5 X10*3/uL (1.2-4.9); Lymphocytes Percent Auto 30.8 % (20-40); Mean Corpuscular HGB Conc 34.5 g/dl (31.0-36.0); Mean Corpuscular Hemoglobin 31.9 pg (27.0-33.0); Mean Corpuscular Volume 92.5 fL (80.0-98.0); Mean Platelet Volume 10.8 fL (9.4-12.4); Monocytes Absolute Auto 0.8 X10*3/uL (0.1-1.2); Monocytes Percent Auto 9.4 % (2-11); Neutrophils Absolute Auto 4.5 x10*3/uL (2.0-8.3); Neutrophils Percent Auto 56.6 % (45-73); Platelet Count 346 X10*3/uL (160-400); Red Blood Count 4.51 X10*6/uL (4.60-5.80); Red Cell Distribution Width 13.1 % (11.0-16.0)
[2025-03-23 16:50] LABS: Alanine Aminotransferase 17 U/L (0-40); Albumin Level 4.4 g/dL (3.5-5.0); Alkaline Phosphatase 63 U/L (39-117); Anion Gap 12 (12-20); Aspartate Amino Transferase 24 U/L (5-37); Bilirubin Total 0.4 mg/dL (0.0-1.0); Blood Urea Nitrogen 18 mg/dL (9-16); Calcium 8.9 mg/dL (8.4-10.2); Carbon Dioxide 21 mmol/L (22-29); Chloride 109 mmol/L (96-108); Cholesterol 214 mg/dL (<200); Estimated Glomerular Filt Rate > 60; Glucose Fasting 110 mg/dL (60-99); HDL Cholesterol 46 mg/dL (>40); LDL Cholesterol Calculated 140 mg/dL (<100); Potassium 4.3 mmol/L (3.3-5.1); Sodium 138 mmol/L (135-145); Total Protein 7.3 g/dL (6.5-8.0); Triglycerides 141 mg/dL (<150)
[2025-03-23 16:53] LABS: TSH reflex Free T4 5.41 uIU/mL (0.32-4.0); Vitamin D 25-OH Total 70.4 ng/mL (>30)
[2025-03-23 18:10] LABS: Free T4 (Free Thyroxine) 0.84 ng/dL (0.71-1.85)
== END 2025-03-23 13:34 | disposition home or self-care (01) ==
LOC: HO.HMGCLDS 13:33
PROVIDERS: PCP Internal Medicine; Visit Provider Internal Medicine
DX: E78.00 Pure hypercholesterolemia, unspecified (principal); R30.0 Dysuria; R73.01 Impaired fasting glucose; D64.9 Anemia, unspecified; E55.9 Vitamin D deficiency, unspecified
CPT/HCPCS: 36415; 80053; 80061; 81003; 82306; 83036; 84439; 84443; 85025

== ENCOUNTER 2025-03-30 10:45 | Outpatient (AMB) | payer MEDICARE, OTHER, SELFPAY ==
--- NOTE | 2025-03-30 10:47 | MHC.PC.OV ---
Vital Signs 03/30/25 10:48 Height 5 ft 8 in Weight 185 lb 6 oz BMI 28.2 BP 128/82 Blood Pressure Location Lt brachial Position Sitting Pulse 78 Pulse Source Pulse Oximeter Pulse Oximetry (%) 97 Oxygen Delivery Method Room Air Intake Visit Reasons: hyperlipidemia, HTN, BPH, lumbar DDD Junior Automation Engineer Required: No Accompanied by: Self / Same As Patient Allergies amoxicillin Allergy (Intermediate, Verified 03/30/25 11:09) stomach upset, nausea, hives Medication List - Last Reconciled 03/30/25 by Tye Mckoy MD ascorbate calcium (vitamin C) 500 mg PO BEDTIME cholecalciferol (vitamin D3) 50 mcg PO BEDTIME docusate sodium (Colace) 100 mg PO BID finasteride 5 mg PO BEDTIME 90 days ibuprofen 400 mg PO DAILY lisinopril 5 mg PO BEDTIME oxycodone 5 mg PO Q4H PRN pravastatin 40 mg PO BEDTIME tadalafil 5 mg PO BEDTIME 90 days tramadol 50 mg PO TID PRN vitamin B complex ER 1 tab PO BEDTIME Tobacco use date assessed: 03/30/25 Fall risk assessment: No Falls in past year Last assessed Fall Risk: 03/30/25 Dental Screening Dental Screen Date: 03/30/25 Did you have a dental visit in the last 12 months?: Yes Did you have a dental problem in the last 6 months where you did not have access to dental care?: No Was dental information given to patient?: Patient has dentist HPI hyperlipidemia, HTN, BPH, lumbar DDD HPI Details Patient comes in today for his follow up visit States that he feels okay He denies any headaches or dizziness Denies any chest pains, no SOB No nausea/vomiting, still has his chronic LLQ abdominal pain that he's had for years now - states that this is mostly unchanged from previous No change in bowel habits noted and he denies seeing any blood in his stools at any time States that his chronic low back pain is also mostly manageable and that there was not much difference in his low back pain even with the minimal procedure that neurosurgery did on his lower back in October 2024 He had his follow up labs done last week - to discuss his results [facility] Medical History Chronic renal insufficiency Vitamin D deficiency Obesity (BMI 30-39.9) Diverticulosis of colon Irritable bowel syndrome (IBS) Smoker Renal cyst Benign prostatic hyperplasia without lower urinary tract symptoms Lumbar degenerative disc disease Benign essential hypertension Mixed hyperlipidemia Surgical History (Updated 03/30/25 @ 11:17 by Tye Mckoy MD) History of colonoscopy with polypectomy History of hemorrhoidectomy History of lumbar surgery History of hernia repair Family History Father Myocardial infarction CVD (cardiovascular disease) Mother Diabetes Head injury Sister Stroke Maternal Grandmother Diabetes Paternal Grandfather Myocardial infarction Paternal Uncle Myocardial infarction Brother No problems noted. Sister No problems noted. Social History Housing: Apartment Housing Other:: 3rd floor-family members live on other two floors of 3 family house Are you a primary lawn caretaker to a significant other at home: No Do you presently have visiting nurse or other home services: No Alcohol intake: current Alcohol intake frequency: holidays/special occasions only Comment: medicated prior to discharge lounge Patient Tobacco Use Status: Current everyday Tobacco user Tobacco use type: Cigarette Cigarette Packs Per Day: 0.5 Cigarettes Per Day: 6 Years Smoked: 40 e-Cigarette/Vaping Use: Never Used Second Hand Smoke Exposure: Yes service: No Current occupational status: retired Cognitive needs: No Hearing needs: No Vision needs: Yes (reading glasses) Questionnaire PHQ-9 Over the last 2 weeks, how often have you been bothered by any of the following problems? 1. Little interest or pleasure in doing things: not at all 2. Feeling down, depressed, or hopeless: not at all 3. Trouble falling or staying asleep, or sleeping too much: several days 4. Feeling tired or having little energy: several days 5. Poor appetite or overeating: not at all 6. Feeling bad about yourself - or that you are a failure or have let yourself or your family down: not at all 7. Trouble concentrating on things, such as reading the newspaper or watching television: not at all 8. Moving or speaking so slowly that other people could have noticed. Or the opposite - being so fidgety or restless that you have been moving around a lot more than usual: not at all 9. Thoughts that you would be better off or of hurting yourself in some way: not at all Total score: 2 Depression Screening Interpretation: Negative Depression Screening Done: Yes 34707 - PHQ-9 Billing: Yes Source: Developed by Drs. Dale Hayes, Sarita Mayberry, Crotes Ospina and colleagues, with an educational ty from [employer]. Thrive Questionnaire Date Thrive assessed: 03/30/25 I am a: Patient What is your living situation today?: I have a steady place to live Within the past 12 months, did the food you bought not last and you didn't have the money to get more?: Never true Within the past 12 months, did you worry whether your food would run out before you got money to buy more?: I choose not to answer this question Do you have trouble paying for medicines?: I choose not to answer this question Do you have trouble getting transportation to medical appointments?: I choose not to answer this question Do you have trouble paying your heating and electricity bill?: I choose not to answer this question Do you have trouble taking care of your child, family member or friend?: I choose not to answer this question Do you have trouble with day-to-day activities such as bathing, preparing meals, shopping, managing finances, etc.?: I choose not to answer this question Are you currently unemployed and looking for a job?: I choose not to answer this question Are you interested in more education?: I choose not to answer this question Please select the resources that you would like help with: None Currently or been in a relationship where the following occur: No concerns reported THRIVE Score: 0 AUDIT C Alcohol Use Questionnaire (AUDIT-C) 1. How often do you have a drink containing alcohol?: Monthly or less 2. How many drinks containing alcohol do you have on a typical day when you are drinking?: 1 or 2 3. How often do you have six or more drinks on one occasion?: Never Total Score: 1 Score Reviewed/Action Taken: Yes TEOFILO-7 AMB Questionnaire TEOFILO-7 Date TEOFILO - 7 assessed: 03/30/25 Feeling nervous, anxious, or on edge: 0 = Not at all Not being able to stop or control worryin = Not at all Worrying too much about different things: 0 = Not at all Trouble relaxin = Not at all Being so restless that it is hard to sit still: 0 = Not at all Becoming easily annoyed or irritable: 0 = Not at all Feeling afraid as if something awful might happen: 0 = Not at all Total TEOFILO-7 score (0-4 normal; 5-9 mild; 10-14 moderate; 15-21 severe): 0 Source: Developed by Drs. Dale Hayes, Sarita Mayberry, Cortes Ospina and colleagues, with an educational ty from [employer]. Review of Systems Const Denies chills, Denies fatigue, Denies fever(s) and Denies headache(s) ENT Denies dysphagia, Denies dizziness, Denies otalgia, Denies headache(s), Denies neck pain, Denies odynophagia and Denies sore throat Card Denies chest pain, Denies irregular heart rhythm, Denies palpitations and Denies dyspnea Resp Denies chest congestion, Denies cough and Denies dyspnea GI Reports abdominal pain (on and off over the LLQ - chronic), Denies constipation, Denies dysphagia, Denies diarrhea, Denies nausea, Denies odynophagia and Denies vomiting Denies difficulty urinating, Denies dysuria and Denies urinary frequency Musc Denies abnormal gait, Reports back pain (over the lower back - chronic), Reports arthralgias (involving multiple joints, on and off), Denies neck pain and Reports stiffness Skin/Breast Denies rash Neuro Denies abnormal gait, Denies dizziness and Denies headache(s) Psych Denies anxiety Endo Denies fatigue and Denies palpitations Physical exam (Primary Care) Vital Signs: Last Vital Signs Pulse 78 03/30/25 10:48 BP 128/82 03/30/25 10:48 Pulse Ox 97 03/30/25 10:48 Oxygen Delivery Method Room Air 03/30/25 10:48 BMI result Body Mass Index 28.2 Tobacco/Smoking Status: Tobacco use Status Tobacco use date assessed 03/30/25 03/30/25 10:55 Patient Tobacco Use Status Current everyday Tobacco 03/30/25 10:55 Tobacco use type Cigarette 03/30/25 10:55 e-Cigarette/Vaping Use Never Used 03/30/25 10:55 PHQ-9: PHQ-9 Score PHQ-9: Total score 2 03/30/25 11:13 Depression Screening Interpretation: Negative Thrive Assessment: Date of Thrive Assessment Date Thrive assessed 03/30/25 03/30/25 10:55 Currently or been in a relationship where the following occur: No concerns reported Const General: no acute distress and alert HENMT Ears: TM's normal bilaterally and EAC's normal Throat: Yes posterior oropharynx normal and Yes tonsils normal Neck Neck: Yes no lymphadenopathy and Yes supple Thyroid: Thyroid normal Resp Auscultation: clear to auscultation bilaterally, no rales and no wheezes Cardio Rate: regular rate Rhythm: regular rhythm Heart sounds: no murmurs GI Palpation (GI): Soft to palpation, Tenderness to palpation present (GI) (over the LLQ as well as over the left inguinal area), no guarding, not rigid, no masses and No Rebound tenderness present Auscultation: normal bowel sounds General: Yes no CVA tenderness Back/Spine/Pelvis Back: no CVA tenderness Thoracic/Lumbar Spine: lumbar spinal tenderness and straight leg raise positive left Skin Rashes: no rashes Extrem General: Yes no clubbing, cyanosis or edema Results Reviewed Results Reviewed: Laboratory Tests 03/23/25 03/23/25 13:34 13:36 WBC 8.0 Hgb 14.4 Hct 41.7 L Plt Count 346 Sodium 138 Potassium 4.3 Creatinine 0.77 Estimated GFR > 60 Fasting Glucose 110 H Hemoglobin A1c % 5.5 Calcium 8.9 D AST 24 ALT 17 Triglycerides 141 Cholesterol 214 H LDL Cholesterol, Calc 140 H HDL Cholesterol 46 25-OH Vitamin D Total 70.4 TSH 5.41 H Free T4 0.84 Ur Specific [place] 1.020 Urine Protein Negative Urine Glucose (UA) Negative Urine Blood Negative Urine Nitrite Negative Ur Leukocyte Esterase Negative Coding Level of Care Code Est Pt Level 4 (62758) Complex EM visit Add On G2211 Diagnoses Left lower quadrant abdominal pain R10.32 Degeneration of intervertebral disc of lumbar region with discogenic back pain M51.360 Disc-related pain type: discogenic back pain only Mixed hyperlipidemia E78.2 Benign essential hypertension I10 Impaired fasting glucose R73.01 Arthralgia, unspecified joint M25.50 Joint pain location: unspecified Vitamin D deficiency E55.9 Benign prostatic hyperplasia without lower urinary tract symptoms N40.0 Complex renal cyst N28.1 Smoker F17.200 Overweight (BMI 25.0-29.9) E66.3 Additional Codes PHQ-9 - 39214 - PHQ-9 Billing: Yes ([id number]) Assessment & Plan Assessment & Plan (1) Left lower quadrant abdominal pain: Code(s): R10.32 - Left lower quadrant pain Category: Medical Plan: Patient continues to complain of recurrent pain over his LLQ - thinks that this is primarily from a deep muscle injury over his left lower abdomen Dr. Baxter previously thought this was related to his lower lumbar spine pathology and sent him for an MRI of the lumbar spine for further evaluation His lumbar spine MRI done on 09/24/24 did show significant neural foraminal narrowing at L5-S1 on the left side He eventually underwent left T12-L1 microdiskectomy on 11/06/[address] Baxter, he could not identify or find the supposed herniated disc that was seen on his imaging studies so no further exploration or intervention were done then Patient reports no significant change in his symptoms with the attempted procedure Continue Tramadol 50 mg BID-TID PRN for severe pain (2) Lumbar degenerative disc disease: Comment: Lumbar spine MRI done back in November 2015 showed (+) multilevel degenerative lumbar spondylosis with a left lateral broad-based disc protrusion at L1-L2 Code(s): M51.36 - Other intervertebral disc degeneration, lumbar region Category: Medical Qualifiers: Disc-related pain type: discogenic back pain only Qualified Code(s): M51.360 - Other intervertebral disc degeneration, lumbar region with discogenic back pain only Plan: Patient states that his ongoing lower back symptoms have gotten worse over the year and was bothering him a lot over most of the past winter and this year Reports that he is also now experiencing some pain over his left thigh area He was finally able to get his lumbar spine MRI done in 2023, which revealed (+) multilevel degenerative changes Reinforced activity and weight-lifting restrictions so as not to aggravate his low back pain Follow up with neurosurgery (Dr. Baxter) as scheduled (3) Mixed hyperlipidemia: Code(s): E78.2 - Mixed hyperlipidemia Category: Medical Plan: Results of his labs done a few days ago reviewed and discussed with patient - he is again cautioned that his cholesterol levels, especially his LDL cholesterol, have again increased significantly from previous Patient admits to stopping his cholesterol medication for about 10 days recently but is now back on his meds everyday Reinforced low cholesterol diet Continue Pravastatin 40 mg QD Will have him recheck his labs and fasting lipids in 6 months for follow up (4) Benign essential hypertension: Code(s): I10 - Essential (primary) hypertension Category: Medical Plan: Reinforced low sodium diet - goal is systolic BP of at least 120 to 130 mm or less Continue Lisinopril 5 mg QD (5) Impaired fasting glucose: Code(s): R73.01 - Impaired fasting glucose Category: Medical Plan: His FBS was again slightly elevated at 110 mg/dl on his recent labs but his HgbA1c is normal at 5.5% Reinforced low calorie/low carb diet Will recheck his FBS and HgbA1c in 6 months for follow up (6) Arthralgia: Code(s): M25.50 - Pain in unspecified joint Category: Medical Qualifiers: Joint pain location: unspecified Qualified Code(s): M25.50 - Pain in unspecified joint Plan: Involving multiple joints - these are most likely due to osteoarthritis Continue Celecoxib 100 mg BID PRN for joint pain (7) Vitamin D deficiency: Code(s): E55.9 - Vitamin D deficiency, unspecified Category: Medical Plan: Corrected Continue Vitamin D3 2000 units QD (8) Benign prostatic hyperplasia without lower urinary tract symptoms: Code(s): N40.0 - Benign prostatic hyperplasia without lower urinary tract symptoms Category: Medical Plan: Patient states that his urinary symptoms have been mostly manageable An enlarged prostate gland was seen incidentally on his abdominal CT done back in November 2018 and also on his more recent CT done on 08/28/2024, with (+) moderate BPH and bilateral hydroceles mentioned on the CT report Continue Finasteride 5 mg QD and Tadalafil 5 mg QD Follow up with urology as scheduled (9) Complex renal cyst: Comment: Abdominal x-rays done in June 2020 revealed no interval changes in the complex exophytic cyst at the upper pole of the left kidney; there are also small bilateral simple renal cysts noted Code(s): N28.1 - Cyst of kidney, acquired Category: Medical Plan: Repeat abdominal and pelvic CT last done on 08/31/2021 revealed (+) continued stable appearance of a complex left renal cyst, with coarse central septal calcifications Previous abdominal CT done on 11/29/2018 showed a stable complex cyst in the upper pole of the left kidney measuring 2.6 x 3.2 cm with septal calcification. There are also some right renal cysts that appear stable His most recent CT on 08/28/2024 mentioned that the kidneys are normal in size, shape, and attenuation. No hydronephrosis, hydroureter, or calculi seen. Bilateral benign Bosniak class I and Bosniak class II renal cysts are noted which require no additional imaging or follow-up. No solid renal masses are seen. The Bosniak class II mass is at the left upper pole and has coarse calcifications associated with it. Calcifications have increased over time Follow up with urology as scheduled (10) Smoker: Code(s): F17.200 - Nicotine dependence, unspecified, uncomplicated Category: Social Hx Plan: Patient is counseled again on complete smoking cessation (11) Overweight (BMI 25.0-29.9): Code(s): E66.3 - Overweight Category: Medical Plan: Reinforced diet/exercise as tolerated (depending on his lower back)/lose weight Plan Follow up in 6 months Orders: Orders Comprehensive [place]. Panel Fast 6 Months E78.00 - Pure hypercholesterolemia, unspecified Lipid Panel 6 Months E78.00 - Pure hypercholesterolemia, unspecified Complete Blood Count Auto Diff 6 Months D64.9 - Anemia, unspecified TSH reflex Free T4 6 Months E78.00 - Pure hypercholesterolemia, unspecified UA CC w/rflx Micro + Cult 6 Months R30.0 - Dysuria Vitamin D 25-OH Total 6 Months E55.9 - Vitamin D deficiency, unspecified Hemoglobin A1c 6 Months R73.01 - Impaired fasting glucose
[2025-03-30 10:48] VITALS: BP 128/82; PULSE 78; O2SAT 97; BMI 28.2
== END 2025-03-30 11:25 | disposition home or self-care (01) ==
LOC: HO.HMCH 10:45
PROVIDERS: PCP Internal Medicine; Visit Provider Internal Medicine
DX: R10.32 Left lower quadrant pain (principal); M51.360 Other intervertebral disc degeneration, lumbar region with discogenic back pain only; E78.2 Mixed hyperlipidemia; I10 Essential (primary) hypertension; R73.01 Impaired fasting glucose; M25.50 Pain in unspecified joint; E55.9 Vitamin D deficiency, unspecified; N40.0 Benign prostatic hyperplasia without lower urinary tract symptoms; N28.1 Cyst of kidney, acquired; F17.200 Nicotine dependence, unspecified, uncomplicated; E66.3 Overweight

== ENCOUNTER → 2025-03-30 10:45 | Outpatient (BNVA) | payer MEDICARE, OTHER, SELFPAY | PROVIDERS: PCP Internal Medicine; Visit Provider Internal Medicine | DX: R10.32 Left lower quadrant pain (principal); M51.360 Other intervertebral disc degeneration, lumbar region with discogenic back pain only; E78.2 Mixed hyperlipidemia; R73.01 Impaired fasting glucose; I10 Essential (primary) hypertension; M25.50 Pain in unspecified joint; E55.9 Vitamin D deficiency, unspecified; N40.0 Benign prostatic hyperplasia without lower urinary tract symptoms; N28.1 Cyst of kidney, acquired; E66.3 Overweight; Z68.28 Body mass index [BMI] 28.0-28.9, adult; F17.200 Nicotine dependence, unspecified, uncomplicated; Z71.6 Tobacco abuse counseling; Z71.3 Dietary counseling and surveillance | CPT/HCPCS: 96127; 99212 ==

== ENCOUNTER 2025-09-26 10:32 | Outpatient (REF) | payer MEDICARE, OTHER, SELFPAY ==
--- OUTSIDE RECORDS SUMMARY | 2025-09-26 10:35 | XMS_ITS | Patient Health Record ---
Author Organization [facility] Address [address] [place] [id number] Care Team Providers Care Head Girls Golf Coach Name Role Phone NONE, NONE Primary Care Provider Art e Dale Dobbins Unavailable [phone] Reason For Referral No Information Medications Medication SIG (Take, Route, Frequency, Duration) Notes Start Date End Date Status Hyoscyamine Sulfate 0.125 MG 1-2 tablets Orally QID prn abdominal cramps/bloating/discomfor t; Duration: 30 days 01/20/2013 Active Plan Of Treatment No Information
[2025-09-26 13:29] LABS: MANUAL DIFF FLAG NO
[2025-09-26 13:33] LABS: Hematocrit 41.0 % (42.0-52.0); Hemoglobin 14.0 g/dl (14.0-18.0); Imm Gran Abs Auto 0.05 X10*3/uL (0.00-0.03); Imm Gran Pct Auto 0.5 % (0.0-0.4); Lymphocytes Absolute Auto 2.1 X10*3/uL (1.2-4.9); Mean Corpuscular HGB Conc 34.1 g/dl (31.0-36.0); Mean Corpuscular Hemoglobin 32.3 pg (27.0-33.0); Mean Corpuscular Volume 94.5 fL (80.0-98.0); NRBC Abs Auto 0.000 X10*3/uL (0.0-0.012); NRBC Pct Auto 0.0 /100WBC (0.0-0.2); Platelet Count 334 X10*3/uL (160-400); Red Blood Count 4.34 X10*6/uL (4.60-5.80); White Blood Count 10.2 X10*3/uL (4.8-10.8)
[2025-09-26 13:43] LABS: Appearance Urine Clear; Glucose Urine UA Negative (Negative); PH 5.0 (5.0-9.0); Specific Gravity - Urine 1.015 (1.005-1.025); UMIC TRIGGER UACC YES
[2025-09-26 14:05] LABS: Alanine Aminotransferase 17 U/L (0-40); Albumin Level 4.5 g/dL (3.5-5.0); Alkaline Phosphatase 68 U/L (39-117); Anion Gap 12 (12-20); Aspartate Amino Transferase 26 U/L (5-37); Blood Urea Nitrogen 20 mg/dL (9-16); Calcium 8.9 mg/dL (8.4-10.2); Carbon Dioxide 23 mmol/L (22-29); Chloride 107 mmol/L (96-108); Cholesterol 219 mg/dL (<200); Estimated Glomerular Filt Rate > 60; HDL Cholesterol 46 mg/dL (>40); Potassium 4.4 mmol/L (3.3-5.1); Sodium 138 mmol/L (135-145); Total Protein 7.0 g/dL (6.5-8.0); Triglycerides 124 mg/dL (<150)
== END 2025-09-26 10:33 | disposition home or self-care (01) ==
LOC: HO.HMGCLDS 10:32
PROVIDERS: PCP Internal Medicine; Visit Provider Internal Medicine
DX: E78.00 Pure hypercholesterolemia, unspecified (principal); D64.9 Anemia, unspecified; E55.9 Vitamin D deficiency, unspecified; R73.01 Impaired fasting glucose; R30.0 Dysuria
CPT/HCPCS: 36415; 80053; 80061; 81001; 82306; 83036; 84443; 85025

== ENCOUNTER 2025-10-02 15:58 | Outpatient (AMB) | payer MEDICARE, OTHER, SELFPAY ==
[2025-10-02 16:00] VITALS: BP 132/84; PULSE 71; O2SAT 97; BMI 28.0
--- NOTE | 2025-10-02 16:00 | A.OFFPC_ITS ---
Vital Signs 10/02/25 16:00 Height 5 ft 8 in Weight 184 lb BMI 28.0 BP 132/84 Blood Pressure Location Lt brachial Position Sitting Pulse 71 Pulse Source Pulse Oximeter Pulse Oximetry (%) 97 Oxygen Delivery Method Room Air Intake Visit Reasons: hyperlipidemia, HTN, lumbar DDD [place] [facility] Required: No Accompanied by: Self / Same As Patient Allergies amoxicillin Allergy (Intermediate, Verified 10/02/25 16:29) stomach upset, nausea, hives Medication List - Last Reconciled 10/02/25 by Tye Mckoy MD ascorbate calcium (vitamin C) 500 mg PO BEDTIME cholecalciferol (vitamin D3) 50 mcg PO BEDTIME docusate sodium (Colace) 100 mg PO BID finasteride 5 mg PO BEDTIME 90 days ibuprofen 400 mg PO DAILY lisinopril 5 mg PO BEDTIME oxycodone 5 mg PO Q4H PRN pravastatin 40 mg PO BEDTIME tadalafil 5 mg PO BEDTIME 90 days tramadol 50 mg PO TID PRN vitamin B complex ER 1 tab PO BEDTIME Tobacco use date assessed: 10/02/25 Fall risk assessment: No Falls in past year Last assessed Fall Risk: 10/02/25 Dental Screening Dental Screen Date: 10/02/25 Did you have a dental visit in the last 12 months?: No Did you have a dental problem in the last 6 months where you did not have access to dental care?: No Was dental information given to patient?: No HPI hyperlipidemia, HTN, lumbar DDD HPI Details Patient comes in today for his follow up visit States that he feels okay He denies any headaches or dizziness Denies any chest pains, no SOB No nausea/vomiting, he still has the chronic LLQ abdominal pain that he's had for years but feels that this seems to be occurring more frequently lately He reports no change in his bowel habits and states that aside from sometimes more frequent urination lately, he's had no issues with bladder or bowel control States that his chronic low back pain is still mostly manageable but he's had to get up from sitting down after 15 to 20 minutes to relieve the numbness and tingling in his left leg after prolonged sitting Also notes that his low back pain and left radicular symptoms can also get worse with prolonged walking Feels that the surgery he had done on his lower back last October (2023) did not really make much of a difference He had his follow up labs done last week - to discuss his results [facility] Medical History Chronic renal insufficiency Vitamin D deficiency Obesity (BMI 30-39.9) Diverticulosis of colon Irritable bowel syndrome (IBS) Smoker Renal cyst Benign prostatic hyperplasia without lower urinary tract symptoms Lumbar degenerative disc disease Benign essential hypertension Mixed hyperlipidemia Surgical History History of colonoscopy with polypectomy History of hemorrhoidectomy History of lumbar surgery History of hernia repair Family History Father Myocardial infarction CVD (cardiovascular disease) Mother Diabetes Head injury Sister Stroke Maternal Grandmother Diabetes Paternal Grandfather Myocardial infarction Paternal Uncle Myocardial infarction Brother No problems noted. Sister No problems noted. Social History Housing: Apartment Housing Other:: 3rd floor-family members live on other two floors of 3 family house Are you a primary primary care nurse practitioner to a significant other at home: No Do you presently have visiting nurse or other home services: No Alcohol intake: current Alcohol intake frequency: holidays/special occasions only Comment: medicated prior to discharge aliyae Patient Tobacco Use Status: Current everyday Tobacco user Tobacco use type: Cigarette Cigarette Packs Per Day: 0.5 Cigarettes Per Day: 6 Years Smoked: 40 e-Cigarette/Vaping Use: Never Used Second Hand Smoke Exposure: Yes service: No Current occupational status: retired Cognitive needs: No Hearing needs: No Vision needs: Yes (reading glasses) Questionnaire PHQ-9 Over the last 2 weeks, how often have you been bothered by any of the following problems? 1. Little interest or pleasure in doing things: not at all 2. Feeling down, depressed, or hopeless: not at all 3. Trouble falling or staying asleep, or sleeping too much: several days 4. Feeling tired or having little energy: several days 5. Poor appetite or overeating: not at all 6. Feeling bad about yourself - or that you are a failure or have let yourself or your family down: not at all 7. Trouble concentrating on things, such as reading the newspaper or watching television: not at all 8. Moving or speaking so slowly that other people could have noticed. Or the opposite - being so fidgety or restless that you have been moving around a lot more than usual: not at all 9. Thoughts that you would be better off or of hurting yourself in some way: not at all Total score: 2 Depression Screening Interpretation: Negative Depression Screening Done: Yes 16433 - PHQ-9 Billing: Yes Source: Developed by Drs. Dale Hayes, Sarita Mayberry, Cortes Ospina and colleagues, with an educational ty from [employer]. Thrive Questionnaire Date Thrive assessed: 10/02/25 I am a: Patient What is your living situation today?: I have a steady place to live Within the past 12 months, did the food you bought not last and you didn't have the money to get more?: Never true Within the past 12 months, did you worry whether your food would run out before you got money to buy more?: I choose not to answer this question Do you have trouble paying for medicines?: I choose not to answer this question Do you have trouble getting transportation to medical appointments?: I choose not to answer this question Do you have trouble paying your heating and electricity bill?: I choose not to answer this question Do you have trouble taking care of your child, family member or friend?: I choose not to answer this question Do you have trouble with day-to-day activities such as bathing, preparing meals, shopping, managing finances, etc.?: I choose not to answer this question Are you currently unemployed and looking for a job?: I choose not to answer this question Are you interested in more education?: I choose not to answer this question Please select the resources that you would like help with: None Currently or been in a relationship where the following occur: No concerns reported THRIVE Score: 0 AUDIT C Alcohol Use Questionnaire (AUDIT-C) 1. How often do you have a drink containing alcohol?: Monthly or less 2. How many drinks containing alcohol do you have on a typical day when you are drinking?: 1 or 2 3. How often do you have six or more drinks on one occasion?: Never Total Score: 1 Score Reviewed/Action Taken: Yes TEOFILO-7 AMB Questionnaire TEOFILO-7 Date TEOFILO - 7 assessed: 10/02/25 Feeling nervous, anxious, or on edge: 0 = Not at all Not being able to stop or control worryin = Not at all Worrying too much about different things: 0 = Not at all Trouble relaxin = Not at all Being so restless that it is hard to sit still: 0 = Not at all Becoming easily annoyed or irritable: 0 = Not at all Feeling afraid as if something awful might happen: 0 = Not at all Total TEOFILO-7 score (0-4 normal; 5-9 mild; 10-14 moderate; 15-21 severe): 0 Source: Developed by Drs. Dale Hayes, Sarita Mayberry, Cortes Ospina and colleagues, with an educational ty from [employer]. Review of Systems Const Denies chills, Denies fatigue, Denies fever(s) and Denies headache(s) ENT Denies dysphagia, Denies dizziness, Denies otalgia, Denies headache(s), Denies neck pain, Denies odynophagia and Denies sore throat Card Denies chest pain, Denies irregular heart rhythm, Denies palpitations and Denies dyspnea Resp Denies chest congestion, Denies cough and Denies dyspnea GI Reports abdominal pain (on and off over the LLQ - chronic), Denies constipation, Denies dysphagia, Denies diarrhea, Denies nausea, Denies odynophagia and Denies vomiting Denies difficulty urinating, Denies dysuria, Reports nocturia (sometimes lately - goes about 2 to 3 times a night occasionally) and Denies urinary frequency Musc Denies abnormal gait, Reports back pain (over the lower back - chronic), Reports arthralgias (involving multiple joints, on and off), Denies neck pain, Reports radiating pain into limb (into the left thigh and leg, at times) and Reports stiffness Skin/Breast Denies rash Neuro Denies abnormal gait, Denies dizziness and Denies headache(s) Psych Denies anxiety Endo Denies fatigue and Denies palpitations Physical exam (Primary Care) Vital Signs: Last Vital Signs Pulse 71 10/02/25 16:00 BP 132/84 10/02/25 16:00 Pulse Ox 97 10/02/25 16:00 Oxygen Delivery Method Room Air 11/07/25 16:00 BMI result Body Mass Index 28.0 Tobacco/Smoking Status: Tobacco use Status Tobacco use date assessed 10/02/25 10/02/25 16:08 Patient Tobacco Use Status Current everyday Tobacco 10/02/25 16:08 Tobacco use type Cigarette 10/02/25 16:08 e-Cigarette/Vaping Use Never Used 10/02/25 16:08 PHQ-9: PHQ-9 Score PHQ-9: Total score 2 10/02/25 17:01 Depression Screening Interpretation: Negative Thrive Assessment: Date of Thrive Assessment Date Thrive assessed 10/02/25 10/02/25 16:08 Currently or been in a relationship where the following occur: No concerns reported Const General: no acute distress and alert HENMT Ears: TM's normal bilaterally and EAC's normal Throat: Yes posterior oropharynx normal and Yes tonsils normal Neck Neck: Yes supple and No lymphadenopathy Thyroid: Thyroid normal Resp Auscultation: clear to auscultation bilaterally, no rales and no wheezes Cardio Rate: regular rate Rhythm: regular rhythm Heart sounds: no murmurs GI Palpation (GI): Soft to palpation, Tenderness to palpation present (GI) (over the LLQ as well as over the left inguinal area), no guarding, not rigid, no masses and No Rebound tenderness present Auscultation: normal bowel sounds General: Yes no CVA tenderness Back/Spine/Pelvis Back: no CVA tenderness Thoracic/Lumbar Spine: lumbar spinal tenderness and straight leg raise positive left Skin Rashes: no rashes Extrem General: Yes no clubbing, cyanosis or edema Results Reviewed Results Reviewed: Laboratory Tests 09/26/25 09/26/25 11:05 11:10 WBC 10.2 Hgb 14.0 Hct 41.0 L Plt Count 334 Sodium 138 Potassium 4.4 Creatinine 0.76 Estimated GFR > 60 Fasting Glucose 109 H Hemoglobin A1c % 5.5 Calcium 8.9 AST 26 ALT 17 Triglycerides 124 Cholesterol 219 H LDL Cholesterol, Calc 149 H HDL Cholesterol 46 25-OH Vitamin D Total 32.2 TSH 3.88 Ur Specific [place] 1.015 Urine Protein Negative Urine Glucose (UA) Negative Urine Nitrite Negative Ur Leukocyte Esterase Trace H Urine RBC 0-2 Coding Level of Care Code Est Pt Level 4 (40007) Diagnoses Left lower quadrant abdominal pain R10.32 Lumbar degenerative disc disease M51.36 Mixed hyperlipidemia E78.2 Benign essential hypertension I10 Impaired fasting glucose R73.01 Arthralgia, unspecified joint M25.50 Joint pain location: unspecified Vitamin D deficiency E55.9 Benign prostatic hyperplasia without lower urinary tract symptoms N40.0 Complex renal cyst N28.1 Smoker F17.200 Overweight (BMI 25.0-29.9) E66.3 Additional Codes PHQ-9 - 35122 - PHQ-9 Billing: Yes ([id number]) Assessment & Plan Assessment & Plan (1) Left lower quadrant abdominal pain: Code(s): R10.32 - Left lower quadrant pain Category: Medical Plan: Patient continues to experience recurrent pain over his LLQ and states that he's had this for years now - thinks that this is primarily from a deep muscle injury over his left lower abdomen but has been advised that this may also be a radicular symptom from his lumbar spine pathology His lumbar spine MRI done on 09/24/24 showed (+) significant neural foraminal n arrowing at L5-S1 on the left side He underwent left T12-L1 microdiskectomy last year on 11/06/[address] Baxter, he could not identify or find the supposed herniated disc that was seen on his imaging studies so no further exploration or intervention was done at the time Patient reports no significant change in his symptoms with the attempted procedure Continue Tramadol 50 mg BID-TID PRN for severe pain (2) Lumbar degenerative disc disease: Comment: Lumbar spine MRI done back in November 2015 showed (+) multilevel degenerative lumbar spondylosis with a left lateral broad-based disc protrusion at L1-L2 Code(s): M51.36 - Other intervertebral disc degeneration, lumbar region Category: Medical Plan: Patient states that his ongoing lower back symptoms have gotten worse over the years and that they were bothering him a lot over most of the past winter and this year He reports also (+) recurrent pain over his left thigh area at times Lumbar spine MRI done in August 2024 revealed (+) multilevel degenerative changes Reinforced activity and weight-lifting restrictions so as not to aggravate his low back pain Follow up with neurosurgery (Dr. Baxter) as scheduled or as needed (3) Mixed hyperlipidemia: Code(s): E78.2 - Mixed hyperlipidemia Category: Medical Plan: Results of his labs done last week reviewed and discussed with patient - he is again cautioned that his cholesterol levels, especially his LDL cholesterol, have again increased slightly from previous Reinforced low cholesterol diet Continue Pravastatin 40 mg QD Will have him recheck his labs and fasting lipids in a few months for follow up (4) Benign essential hypertension: Code(s): I10 - Essential (primary) hypertension Category: Medical Plan: Reinforced low sodium diet - goal is systolic BP of at least 120 to 130 mm or less Continue Lisinopril 5 mg QD (5) Impaired fasting glucose: Code(s): R73.01 - Impaired fasting glucose Category: Medical Plan: His FBS was again slightly elevated at 109 mg/dl on his recent labs but his HgbA1c remains normal at 5.5% Reinforced low calorie/low carb diet Will recheck his FBS and HgbA1c in a few months for follow up (6) Arthralgia: Code(s): M25.50 - Pain in unspecified joint Category: Medical Qualifiers: Joint pain location: unspecified Qualified Code(s): M25.50 - Pain in unspecified joint Plan: Involving multiple joints - these are most likely due to osteoarthritis Continue Celecoxib 100 mg BID PRN for joint pain (7) Vitamin D deficiency: Code(s): E55.9 - Vitamin D deficiency, unspecified Category: Medical Plan: Continue Vitamin D3 2000 units QD (8) Benign prostatic hyperplasia without lower urinary tract symptoms: Code(s): N40.0 - Benign prostatic hyperplasia without lower urinary tract symptoms Category: Medical Plan: Patient states that his urinary symptoms have been mostly manageable An enlarged prostate gland was seen incidentally on his abdominal CT done back in November 2018 and also on his more recent CT done on 08/28/2024, with (+) moderate BPH and bilateral hydroceles mentioned on the CT report Continue Finasteride 5 mg QD and Tadalafil 5 mg QD Follow up with urology as scheduled (9) Complex renal cyst: Comment: Abdominal x-rays done in June 2020 revealed no interval changes in the complex exophytic cyst at the upper pole of the left kidney; there are also small bilateral simple renal cysts noted Code(s): N28.1 - Cyst of kidney, acquired Category: Medical Plan: Repeat abdominal and pelvic CT last done on 08/31/2021 revealed (+) continued stable appearance of a complex left renal cyst, with coarse central septal calcifications Previous abdominal CT done on 11/29/2018 showed a stable complex cyst in the upper pole of the left kidney measuring 2.6 x 3.2 cm with septal calcification. There are also some right renal cysts that appear stable His most recent CT on 08/28/2024 mentioned that the kidneys are normal in size, shape, and attenuation. No hydronephrosis, hydroureter, or calculi seen. Bilateral benign Bosniak class I and Bosniak class II renal cysts are noted which require no additional imaging or follow-up. No solid renal masses are seen. The Bosniak class II mass is at the left upper pole and has coarse calcifications associated with it. Calcifications have increased over time Follow up with urology as scheduled (10) Smoker: Code(s): F17.200 - Nicotine dependence, unspecified, uncomplicated Category: Social Hx Plan: Patient is counseled again on complete smoking cessation (11) Overweight (BMI 25.0-29.9): Code(s): E66.3 - Overweight Category: Medical Plan: Reinforced diet/exercise as tolerated (depending on his lower back)/lose weight Plan Follow up as scheduled in December 2025 Orders: Orders Complete Blood Count Auto Diff 12/27/25 D64.9 - Anemia, unspecified Comprehensive [place]. Panel Fast 12/27/25 E78.00 - Pure hypercholesterolemia, unspecified Lipid Panel 12/27/25 E78.00 - Pure hypercholesterolemia, unspecified Hemoglobin A1c 12/27/25 R73.01 - Impaired fasting glucose TSH reflex Free T4 12/27/25 E78.00 - Pure hypercholesterolemia, unspecified UA CC w/rflx Micro + Cult 12/27/25 R30.0 - Dysuria Vitamin D 25-OH Total 12/27/25 E55.9 - Vitamin D deficiency, unspecified
== END 2025-10-02 17:02 | disposition home or self-care (01) ==
LOC: HO.HMCH 15:59
PROVIDERS: PCP Internal Medicine; Visit Provider Internal Medicine
DX: R10.32 Left lower quadrant pain (principal); M51.369 Other intervertebral disc degeneration, lumbar region without mention of lumbar back pain or lower extremity pain; E78.2 Mixed hyperlipidemia; I10 Essential (primary) hypertension; R73.01 Impaired fasting glucose; M25.50 Pain in unspecified joint; E55.9 Vitamin D deficiency, unspecified; N40.0 Benign prostatic hyperplasia without lower urinary tract symptoms; N28.1 Cyst of kidney, acquired; F17.200 Nicotine dependence, unspecified, uncomplicated; E66.3 Overweight

== ENCOUNTER → 2025-10-02 15:58 | Outpatient (BNVA) | payer MEDICARE, OTHER, SELFPAY | PROVIDERS: PCP Internal Medicine; Visit Provider Internal Medicine | DX: R10.32 Left lower quadrant pain (principal); M51.369 Other intervertebral disc degeneration, lumbar region without mention of lumbar back pain or lower extremity pain; E78.2 Mixed hyperlipidemia; I10 Essential (primary) hypertension; R73.01 Impaired fasting glucose; M25.50 Pain in unspecified joint; E55.9 Vitamin D deficiency, unspecified; N40.0 Benign prostatic hyperplasia without lower urinary tract symptoms; N28.1 Cyst of kidney, acquired; E66.3 Overweight; Z68.28 Body mass index [BMI] 28.0-28.9, adult; F17.200 Nicotine dependence, unspecified, uncomplicated; Z71.6 Tobacco abuse counseling; Z71.3 Dietary counseling and surveillance | CPT/HCPCS: 96127; 99212 ==